=== PATIENT | female | born 1950 | race Caucasian/White ===

== ENCOUNTER → 2017-03-10 | Outpatient (CLI) | payer MEDICARE, OTHER ==
--- NOTE | 2017-03-10 10:25 | US ---
EXAMINATION TYPE: US venous doppler duplex LE DATE OF EXAM: 03/10/2017 9:49 AM COMPARISON: Right lower extremity venous ultrasound October 27, 2009 CLINICAL HISTORY: Edema R60.9. Leg swelling while traveling, no h/o dvt SIDE PERFORMED: Bilateral TECHNIQUE: The lower extremity deep venous system is examined utilizing real time linear array sonog verena with graded compression, doppler sonography and color-flow sonography. VESSELS IMAGED: External Iliac Vein (EIV) Common Femoral Vein Deep Femoral Vein Greater Saphenous Vein * Femoral Vein Popliteal Vein Small Saphenous Vein * Proximal Calf Veins (* superficial vessels) Right Leg: Appears negative for DVT Left Leg: Appears negative for DVT Grayscale, color doppler, spectral doppler imaging performed of the deep veins of the lower extremiti es. There is normal flow, compressibility, vascular waveforms bilaterally. IMPRESSION: No ultrasound evidence for acute DVT in either lower extremity.
== END | disposition home or self-care (01) ==
LOC: RADUSWWP 09:10
PROVIDERS: ATTEND Internal Medicine
DX: R60.9 Edema, unspecified (principal)
CPT/HCPCS: 36415; 80053; 83735; 84439; 84443; 85025; 93970

== ENCOUNTER → 2017-03-10 | Outpatient (CLI) | payer MEDICARE, OTHER ==
[2017-03-10 10:28] LABS: Basophils % (A) 0 %; CH 34.1; CHCM 33.6; Eosinophils # (A) 0.2 k/uL (0-0.7); Eosinophils % (A) 3 %; HCT 39.8 % (34.0-46.0); HGB 13.2 gm/dL (11.4-16.0); Luc # (Auto) 0.08; Luc % (Auto) 1; Lymphocytes # (A) 1.4 k/uL (1.0-4.8); Lymphocytes % (A) 21 %; MCH 33.8 pg (25.0-35.0); MCHC 33.1 g/dL (31.0-37.0); Macrocytosis Slight; Monocytes # (A) 0.4 k/uL (0-1.0); Monocytes % (A) 6 %; Neutrophils # (A) 4.5 k/uL (1.3-7.7); Neutrophils % (A) 69 %; RDW 13.6 % (11.5-15.5); WBC 6.5 k/uL (3.8-10.6); WBC (Perox) 6.51
[2017-03-10 11:07] LABS: ALT 29 U/L (9-52); AST 14 U/L (14-36); Alkaline Phosphatase 99 U/L (38-126); Anion Gap 10 mmol/L; Blood Urea Nitrogen 16 mg/dL (7-17); Carbon Dioxide 26 mmol/L (22-30); Chloride 105 mmol/L (98-107); Glucose 113 mg/dL (74-99); Magnesium 2.1 mg/dL (1.6-2.3); Non-African American GFR(MDRD) >60 (>60 ml/min/1.73 sqM); Potassium 3.6 mmol/L (3.5-5.1); Sodium 141 mmol/L (137-145); Total Bilirubin 0.9 mg/dL (0.2-1.3); Total Protein 6.4 g/dL (6.3-8.2)
== END | disposition home or self-care (01) ==
LOC: LABWHC1 09:59
PROVIDERS: ATTEND Internal Medicine
DX: I10 Essential (primary) hypertension (principal)
CPT/HCPCS: 36415; 80053; 83735; 84439; 84443; 85025

== ENCOUNTER → 2017-04-06 | Outpatient (CLI) | payer MEDICARE, OTHER ==
[2017-04-06 13:34] LABS: Blood Urea Nitrogen 14 mg/dL (7-17); Non-African American GFR(MDRD) >60 (>60 ml/min/1.73 sqM)
--- NOTE | 2017-04-06 15:14 | CT ---
EXAMINATION TYPE: CT abdomen pelvis w con DATE OF EXAM: 04/06/2017 COMPARISON: 01/21/2016 INDICATION: Abdominal pain DLP: 1931.20 mGycm, Automated exposure control for dose reduction was used. CONTRAST: 100 ml mL of Omnipaque 300. Study performed with Oral Contrast TECHNIQUE: Axial images were obtained from above the diaphragm to the pubic rami in the axial plane a t 5 mm thick sections. Reconstructed images are reviewed on the computer in the coronal plane. FINDINGS: Limited CT sections are obtained the lung bases. The lung bases are clear. Some coronary artery finn cification is noted. CT ABDOMEN: Liver: Normal Spleen: Normal Pancreas: Fatty infiltrated Adrenal glands: Right adrenal gland is thickened at 1.5 cm and appears stable from prior. Left adrena l gland is normal. Gallbladder: Normal Kidneys: No masses are evident. There is a peripelvic cyst present on the right. Delayed images demon strate normal renal pelvis and ureter. No hydronephrosis is present. No cysts are present. Delayed i mages were obtained through the kidneys, which remain unremarkable. Aorta: Vascular calcification is within the aorta. Inferior vena cava: Normal. CT PELVIS: Loops of bowel within the abdomen and pelvis are normal. There are loops of bowel which are incom pletely distended or lack oral contrast limiting their evaluation. Appendix: Not identified Urinary bladder: Normal. Genitourinary structures: Uterus and ovaries are not identified. Osseous structures: No suspicious lytic or sclerotic lesions. Facet degenerative change and hypertrop hy is present. IMPRESSIONS: 1. Right renal peripelvic cyst. No hydronephrosis is present. 2. No acute process CT abdomen pelvis. 3. No significant interval change
== END | disposition home or self-care (01) ==
LOC: RADCTMAIN 12:56
PROVIDERS: ATTEND Internal Medicine
DX: N28.1 Cyst of kidney, acquired (principal); Z01.812 Encounter for preprocedural laboratory examination
CPT/HCPCS: 82565; 84520; 74177; 36415; Q9967

== ENCOUNTER → 2017-05-31 | Outpatient (CLI) | payer MEDICARE, OTHER ==
--- NOTE | 2017-05-31 10:22 | MM ---
Reason for exam: additional evaluation requested from prior study. Last mammogram was performed 1 year ago. History: Patient is postmenopausal and has history of breast cancer at age 64. Malignant MG pre op needle loc LT of the left breast, November 03, 2014. Malignant US biopsy breast VAD LT of the left breast, October 24, 2014. Took estrogen for 22 years beginning at age 33. Took other hormone for 7 years beginning at age 65. Physical Findings: Nurse Summary: A 0.5-1cm nodule in the right breast at 12 o'clock (nurse kp). MG 3D Diag Mammo W/Cad PARISA Bilateral CC and MLO view(s) were taken. Prior study comparison: May 30, 2016, bilateral MG 3d diag mammo w/cad PARISA. August 26, 2015, left breast MG 3d diag mammo w/cad LT. There are scattered fibroglandular densities. Stable benign calcifications. Stable post operative changes in the left breast. These results were verbally communicated with the patient and result sheet given to the patient on 05/31/17. ASSESSMENT: Incomplete: need additional imaging evaluation, BI-RAD 0 RECOMMENDATION: Ultrasound of the right breast. Manage patient on a clinical basis.
--- NOTE | 2017-05-31 10:28 | USB ---
Reason for exam: additional evaluation requested from prior study. History: Patient is postmenopausal and has history of breast cancer at age 64. Malignant MG pre op needle loc LT of the left breast, November 03, 2014. Malignant US biopsy breast VAD LT of the left breast, October 24, 2014. Took estrogen for 22 years beginning at age 33. Took other hormone for 7 years beginning at age 65. US Breast Limited RT Right breast ultrasound indicates a 1.8 x 1.9 x 0.7cm hyperechoic lesion at 12 o 'clock. These results were verbally communicated with the patient and result sheet given to the patient on 05/31/17. ASSESSMENT: Benign, BI-RAD 2 RECOMMENDATION: Follow-up diagnostic mammogram of both breasts in 1 year. Manage patient on a clinical basis.
== END | disposition home or self-care (01) ==
LOC: RADMAMWWP 08:50
PROVIDERS: ATTEND Radiology Diagnostic Radiology
DX: C50.912 Malignant neoplasm of unspecified site of left female breast (principal); H53.462 Homonymous bilateral field defects, left side
CPT/HCPCS: 76642; G0204; G0279

== ENCOUNTER → 2017-12-15 | Outpatient (CLI) | payer MEDICARE, OTHER ==
[2017-12-15 17:37] LABS: Blood Urea Nitrogen 23 mg/dL (7-17)
--- NOTE | 2017-12-15 18:24 | CT ---
EXAMINATION TYPE: CT chest w con DATE OF EXAM: 12/15/2017 COMPARISON: 08/04/2014 HISTORY: Right upper back pain with SOB. CT DLP: 501.3 mGycm Automated exposure control for dose reduction was used. CONTRAST: CT scan of the chest is performed with IV Contrast, patient injected with 100 mL of Isovue 300. FINDINGS: The lungs are clear of infiltrate. There is no evidence of a pulmonary mass. There is no pleural effu deanna. There is no adrenal mass. Heart size is normal. There is no pericardial effusion. There is no mediastinal adenopathy. There are no hilar masses. The bony thorax appears intact. IMPRESSION: Negative CT scan of the chest. No adverse change compared to old exam.
== END | disposition home or self-care (01) ==
LOC: RADCTMAIN 17:04
PROVIDERS: ATTEND Internal Medicine
DX: R09.1 Pleurisy (principal)
CPT/HCPCS: 82565; 84520; 71260; 36415; Q9967

== ENCOUNTER 2017-12-22 19:00 | Observation (INO) | payer MEDICARE, OTHER ==
[2017-12-22] MEDS ORDERED: SODIUM CHLORIDE 0.9% 1,000 ML IV STA (19:30)
--- NOTE | 2017-12-22 19:43 | ED ---
General Adult HPI - General Chief complaint: Chest Pain Stated complaint: Chest pain Time Seen by Provider: 12/22/17 19:08 Source: patient, family, EMS, RN notes reviewed, old records reviewed Mode of arrival: EMS Limitations: no limitations - History of Present Illness Initial comments: Chief complaint and history of present illness this is a 67-year-old female here with a complaint of having had pain to her chest. She reports it started like a burn to the back of her neck that went down the left anterior chest and down both arms. It lasted 2 minutes each time. It occurred 4 times. This is associated with dizziness and diaphoresis. - Related Data Home Medications Medication Instructions Recorded Confirmed Albuterol Inhaler [Ventolin 2 puff INHALATION Q4HR PRN 01/23/14 11/03/14 Inhaler] Atorvastatin Calcium [Lipitor] 40 mg PO HS 01/23/14 11/03/14 Budesonide/Formoterol Fumarate 2 puff INHALATION BID PRN 01/23/14 11/03/14 [Symbicort 160-4.5 Mcg Inhaler] Diphenoxylate HCl/Atropine 1 tab PO TID PRN 01/23/14 11/03/14 [Lomotil] FLUoxetine HCL [PROzac] 60 mg PO DAILY 01/23/14 10/31/14 Irbesartan/Hydrochlorothiazide 1 each PO DAILY 01/23/14 11/03/14 [Avalide 150-12.5 mg Tablet] Omeprazole [PriLOSEC] 20 mg PO BID PRN 01/23/14 11/03/14 Propranolol HCl [Inderal] 60 mg PO DAILY 01/23/14 10/31/14 QUEtiapine [SEROquel] 25 mg PO HS 01/23/14 11/03/14 clonazePAM [KlonoPIN] 1 mg PO QID PRN 01/23/14 11/03/14 Hydrocodone/Acetaminophen 1 each PO QID PRN 04/09/14 11/03/14 [Hydrocodone/Acetaminophen 5-325] Multivitamins, Thera [Multivitamin] 1 each PO DAILY 10/31/14 10/31/14 Vitamin B-12(Injection) 1 applicate INJ QMONTH 10/31/14 11/03/14 Vitamin D(Dose Unknown) 1 tab PO WEEKLY 10/31/14 11/03/14 Previous Rx's Medication Instructions Recorded Hydrocodone/Acetaminophen [[place] 1 each PO Q4HR PRN #30 tab 11/03/14 5-325] Allergies Allergy/AdvReac Type Severity Reaction Status Date / Time acetaminophen [From Lortab] Allergy Hallucinati Verified 10/31/14 11:24 ons erythromycin base Allergy Rash/Hives Verified 10/31/14 11:24 [Erythromycin Base] hydrocodone bitartrate Allergy Hallucinati Verified 10/31/14 11:24 [From Lortab] ons NSAIDS (Non-Steroidal Allergy Nausea & Verified 10/31/14 11:24 Anti-Inflamma Vomiting procaine HCl [From Novocain] Allergy pt states Verified 10/31/14 11:24 " i got numb from the waist down and passed out" Review of Systems ROS Statement: Those systems with pertinent positive or pertinent negative responses have been documented in the HPI. Review of systems currently no headache or visual acuity changes no stiff neck or neck pain no chest pain or shortness of breath no complaints of any nausea vomiting or diarrhea. No GI or complaints. All systems are reviewed. Past medical problems significant for A. fib at one time used to be on Coumadin but is no longer on Coumadin. Her EKG shows normal sinus rhythm. The patient had breast cancer 3 years ago had surgery and radiation. Patient was told that she has early COPD. She quit smoking 5 years ago she had been smoking over 53 years. The patient's surgeries also include skin cancer on her right cheek, bilateral knees replaced. Total hysterectomy and hiatal hernia wrap. her family. Patient has ALLERGIES to Novocain but she states she can't take lidocaine. Also Lortab erythromycin which causes upset stomach. Patient denies alcohol use. ROS Other: All systems not noted in ROS Statement are negative. Past Medical History Past Medical History: Atrial Fibrillation, Cancer, COPD, GERD/Reflux, Hyperlipidemia, Hypertension, Osteoarthritis (OA), Pneumonia, Skin Disorder Additional Past Medical History / Comment(s): skin cancer, migraines, IBS, diverticulitis, hair falling out since Jul 2014 from coloring hair, cyst on rt kidney, skin and breast cancer, skin "sun damage", "back problems" History of Any Multi-Drug Resistant Organisms: None Reported Past Surgical History: Appendectomy, Breast Surgery, Heart Catheterization, Hysterectomy, Joint Replacement, Orthopedic Surgery, Tonsillectomy Additional Past Surgical History / Comment(s): cataracts, pain clinic procedures , "esophageal wap", left breast biopsy, margarita knee replacements Past Anesthesia/Blood Transfusion Reactions: Previous Problems w/ Anesthesia Additional Past Anesthesia/Blood Transfusion Reaction / Comment(s): hallucinations. pt told drop in BP during surgery caused from taking her avalide am of procedure-told she she not take when getting anesthesia Past Psychological History: Anxiety, Depression Smoking Status: Former smoker Past Alcohol Use History: None Reported Past Drug Use History: None Reported - Past Family History Mother Family Medical History: Deep Vein Thrombosis (DVT) General Exam - General Exam Comments Initial Comments: General: The patient is awake and alert, in no distress, and does not appear acutely ill. Here because she had 4 episodes, each lasting 2 minutes of chest pain and diaphoresis. Vital signs show temperature 98.1 pulse 55 respiratory rate 18 pulse ox 97% room air blood pressure 117/69 Eye: Pupils are equal, round and reactive to light, extra-ocular movements are intact ; there is normal conjunctiva bilaterally. No signs of icterus. Ears, nose, mouth and throat: There are moist mucous membranes and no oral lesions. Poor dentition. Neck: The neck is supple, no anterior cervical lymphadenopathy, thyroid not enlarged. No neck pain with flexion and extension. Cardiovascular: There is a regular rate and rhythm. No murmur, rub or gallop is appreciated. No pain between the shoulder blades. Respiratory: Lungs are clear to auscultation, respirations are non-labored, breath sounds are equal. No wheezes, stridor, rales, or rhonchi. Gastrointestinal: Soft, non-distended, non-tender abdomen without masses or organomegaly noted. There is no rebound or guarding present. No CVA tenderness. Bowel sounds are unremarkable. Back: There is no tenderness to palpation in the midline. There is no obvious deformity. No rashes noted. Musculoskeletal: Normal ROM, no tenderness, There is no pedal edema. There is no calf tenderness or swelling. Sensation intact. Pulses equal bilaterally 2+. Neurological: CN II-XII intact, There are no obvious motor or sensory deficits. Coordination appears grossly intact. Speech is normal. No focal or lateralizing findings Skin: Skin is warm and dry and no rashes or lesions are noted. Psychiatric: Cooperative, appropriate mood & affect, history of depression. Denies being depressed at this time. Limitations: no limitations Course Vital Signs 12/22/17 19:10 Temperature 98.1 F Pulse Rate 55 L Respiratory 18 Rate Blood Pressure 117/69 O2 Sat by Pulse 97 Oximetry EKG Findings - EKG Comments: EKG Findings:: EKG was done and reviewed at 1906 showing sinus bradycardia with left hypertrophy no acute ST elevation no ectopy no ischemic changes. Rate 55. 140 QRS 74 QT [address] Dawn Medical Decision Making - Medical Decision Making Medical decision making; patient's here because she had 4 episodes lasted 2 minutes each of pain that started in the back of her neck described as a hot sensation that then went down the left anterior chest wall and down both arms. She was diaphoretic and subsided. Patient denies any pain between his scapula. Patient had a CT of the chest with contrast just one week ago on , at that time. History ; right upper back pain with shortness of breath. The findings at that time per radiologist ;the lungs are clear of infiltrate. There is no evidence of a pulmonary mass. There is no pleural effusion. There is no adrenal mass. Heart size is normal. There is no pericardial effusion. There is no mediastinal lymphadenopathy, there are no hilar masses. Bony thorax appears intact. Impression; negative CT scan of the chest. No adverse change compared to old exam. As read by Dr. Wyatt Labs show white count of 11 hemoglobin 12.7 with hematocrit 38. INR 1.0. Potassium 4.0 and a BUN 19 creatinine 0.6 with a GFR greater than 90. Glucose 90. Troponin less than 0.012. BNP only 181. The case discussed with Dr. Jane, on-call for Dr. Arroyo. Patient be admitted to observation under her service. At this time she is not requesting heparin. - Lab Data Result diagrams: 12/22/17 19:44 12/22/17 19:44 Lab Results 12/22/17 12/22/17 12/22/17 Range/Units 19:44 19:44 19:44 WBC 11.2 H (3.8-10.6) k/uL RBC 3.81 (3.80-5.40) m/uL Hgb 12.7 (11.4-16.0) gm/dL Hct 38.0 (34.0-46.0) % MCV 99.7 (80.0-100.0) fL MCH 33.3 (25.0-35.0) pg MCHC 33.4 (31.0-37.0) g/dL RDW 13.5 (11.5-15.5) % Plt Count 215 (150-450) k/uL Neutrophils % 81 % Lymphocytes % 11 % Monocytes % 4 % Eosinophils % 2 % Basophils % 0 % Neutrophils # 9.1 H (1.3-7.7) k/uL Lymphocytes # 1.2 (1.0-4.8) k/uL Monocytes # 0.5 (0-1.0) k/uL Eosinophils # 0.3 (0-0.7) k/uL Basophils # 0.0 (0-0.2) k/uL PT (9.0-12.0) sec INR (<1.2) APTT (22.0-30.0) sec D-Dimer (<0.60) mg/L FEU Sodium 140 (137-145) mmol/L Potassium 4.0 (3.5-5.1) mmol/L Chloride 103 (98-107) mmol/L Carbon Dioxide 27 (22-30) mmol/L Anion Gap 10 mmol/L BUN 19 H (7-17) mg/dL Creatinine 0.60 (0.52-1.04) mg/dL Est GFR (CKD-EPI)AfAm >90 (>60 ml/min/1.73 sqM) Est GFR (CKD-EPI)NonAf >90 (>60 ml/min/1.73 sqM) Glucose 90 (74-99) mg/dL Calcium 10.1 (8.4-10.2) mg/dL Magnesium 2.0 (1.6-2.3) mg/dL Total Bilirubin 1.1 (0.2-1.3) mg/dL AST 17 (14-36) U/L ALT 28 (9-52) U/L Alkaline Phosphatase 96 (38-126) U/L Total Creatine Kinase 52 (30-135) U/L CK-MB (CK-2) 0.9 (0.0-2.4) ng/mL CK-MB (CK-2) Rel Index 1.7 Troponin I <0.012 (0.000-0.034) ng/mL NT-Pro-B Natriuret Pep pg/mL Total Protein 6.5 (6.3-8.2) g/dL Albumin 3.7 (3.5-5.0) g/dL 12/22/17 12/22/17 Range/Units 19:44 19:44 WBC (3.8-10.6) k/uL RBC (3.80-5.40) m/uL Hgb (11.4-16.0) gm/dL Hct (34.0-46.0) % MCV (80.0-100.0) fL MCH (25.0-35.0) pg MCHC (31.0-37.0) g/dL RDW (11.5-15.5) % Plt Count (150-450) k/uL Neutrophils % % Lymphocytes % % Monocytes % % Eosinophils % % Basophils % % Neutrophils # (1.3-7.7) k/uL Lymphocytes # (1.0-4.8) k/uL Monocytes # (0-1.0) k/uL Eosinophils # (0-0.7) k/uL Basophils # (0-0.2) k/uL PT 9.6 (9.0-12.0) sec INR 1.0 (<1.2) APTT 22.4 (22.0-30.0) sec D-Dimer 0.54 (<0.60) mg/L FEU Sodium (137-145) mmol/L Potassium (3.5-5.1) mmol/L Chloride (98-107) mmol/L Carbon Dioxide (22-30) mmol/L Anion Gap mmol/L BUN (7-17) mg/dL Creatinine (0.52-1.04) mg/dL Est GFR (CKD-EPI)AfAm (>60 ml/min/1.73 sqM) Est GFR (CKD-EPI)NonAf (>60 ml/min/1.73 sqM) Glucose (74-99) mg/dL Calcium (8.4-10.2) mg/dL Magnesium (1.6-2.3) mg/dL Total Bilirubin (0.2-1.3) mg/dL AST (14-36) U/L ALT (9-52) U/L Alkaline Phosphatase (38-126) U/L Total Creatine Kinase (30-135) U/L CK-MB (CK-2) (0.0-2.4) ng/mL CK-MB (CK-2) Rel Index Troponin I (0.000-0.034) ng/mL NT-Pro-B Natriuret Pep 181 pg/mL Total Protein (6.3-8.2) g/dL Albumin (3.5-5.0) g/dL Disposition Clinical Impression: Atypical chest pain Disposition: ADMITTED IP TO THIS HOSP Condition: Fair Referrals: Sherice Arroyo MD [Primary Care Provider] - 1-2 days
[2017-12-22 19:55] LABS: Basophils % (A) 0 %; Eosinophils # (A) 0.3 k/uL (0-0.7); Eosinophils % (A) 2 %; HGB 12.7 gm/dL (11.4-16.0); Lymphocytes # (A) 1.2 k/uL (1.0-4.8); Lymphocytes % (A) 11 %; MCH 33.3 pg (25.0-35.0); MCHC 33.4 g/dL (31.0-37.0); MCV 99.7 fL (80.0-100.0); Mean Platelet Volume 7.9; Monocytes # (A) 0.5 k/uL (0-1.0); Monocytes % (A) 4 %; Neutrophils # (A) 9.1 k/uL (1.3-7.7); Neutrophils % (A) 81 %; Platelet Count 215 k/uL (150-450); RBC 3.81 m/uL (3.80-5.40); RDW 13.5 % (11.5-15.5); WBC 11.2 k/uL (3.8-10.6)
--- NOTE | 2017-12-22 20:04 | XR ---
EXAMINATION: XR chest 2V DATE AND TIME: 12/22/2017 7:56 PM ORDERING PROVIDER: Gerson Dawn MD CLINICAL INDICATION: Chest Pain TECHNIQUE: PA and lateral COMPARISON: 05/10/2013 DESCRIPTION: The lungs are clear. The pleural spaces are negative. The cardiac silhouette is not enlarged. The mediastinal and pleural silhouettes are unremarkable. The skeletal structures are intact without focal findings. The soft tissues are unremarkable. IMPRESSION: NO ACUTE PROCESS.
[2017-12-22 20:08] LABS: ALT 28 U/L (9-52); AST 17 U/L (14-36); Albumin 3.7 g/dL (3.5-5.0); Alkaline Phosphatase 96 U/L (38-126); Anion Gap 10 mmol/L; Blood Urea Nitrogen 19 mg/dL (7-17); Calcium 10.1 mg/dL (8.4-10.2); Carbon Dioxide 27 mmol/L (22-30); Chloride 103 mmol/L (98-107); Glucose 90 mg/dL (74-99); Sodium 140 mmol/L (137-145); Total Bilirubin 1.1 mg/dL (0.2-1.3); Total Protein 6.5 g/dL (6.3-8.2)
[2017-12-22 20:09] LABS: Creatine Kinase 52 U/L (30-135)
[2017-12-22 20:22] LABS: Creatine Kinase MB 0.9 ng/mL (0.0-2.4); D-Dimer 0.54 mg/L FEU (<0.60); Partial Thromboplastin Time 22.4 sec (22.0-30.0); Prothrombin Time 9.6 sec (9.0-12.0); Troponin I <0.012 ng/mL (0.000-0.034)
[2017-12-22] MEDS ORDERED: NALOXONE 0.4 MG/ML 1 ML VIAL IV PRN (20:44)
[2017-12-22] MEDS: SODIUM CHLORIDE 0.9% 1,000 ML IV SCH (20:56)
[2017-12-22] MEDS: FAMOTIDINE 20 MG TAB PO SCH (21:19)
[2017-12-22] MEDS ORDERED: DIPHENOX-ATROP 2.5-0.025 MG 1 EACH TAB PO PRN (22:45)
[2017-12-22] MEDS ORDERED: QUEtiapine 25 MG TAB PO SCH (22:45)
[2017-12-22] MEDS ORDERED: ATORVASTATIN 40 MG TAB PO SCH (22:45)
[2017-12-22] MEDS ORDERED: ALBUTEROL NEBULIZED 2.5 MG/3 ML INHALATION PRN (22:45)
[2017-12-22] MEDS ORDERED: clonazePAM 1 MG TAB PO SCH (22:45)
[2017-12-22] MEDS ORDERED: HYDROcodone/APAP 5-325MG 1 EACH TAB PO PRN (22:45)
[2017-12-22] MEDS: IPRATROPIUM 0.5 MG/2.5 ML NEBU INHALATION SCH (23:43)
[2017-12-23 01:52] LABS: Creatine Kinase 48 U/L (30-135)
[2017-12-23 02:05] LABS: Troponin I <0.012 ng/mL (0.000-0.034)
[2017-12-23] MEDS: IPRATROPIUM 0.5 MG/2.5 ML NEBU INHALATION SCH ×3 (07:25→15:17)
[2017-12-23 08:17] LABS: Creatine Kinase 42 U/L (30-135)
[2017-12-23 08:30] LABS: Creatine Kinase MB 0.8 ng/mL (0.0-2.4); Troponin I <0.012 ng/mL (0.000-0.034)
[2017-12-23] MEDS ORDERED: ASCORBIC ACID 500 MG TAB PO SCH (09:00)
[2017-12-23] MEDS ORDERED: HYDROCHLOROTHIAZIDE 12.5 MG CAP PO SCH (09:00)
[2017-12-23] MEDS ORDERED: LOSARTAN 50 MG TAB PO SCH (09:00)
[2017-12-23] MEDS ORDERED: PROPRANOLOL LA 60 MG CAP.SA.24H PO SCH (09:00)
[2017-12-23] MEDS ORDERED: MULTIVITAMINS, THERA 1 EACH TAB PO SCH (09:00)
[2017-12-23] MEDS: clonazePAM 1 MG TAB PO SCH ×2 (09:09→15:02)
[2017-12-23] MEDS: FAMOTIDINE 20 MG TAB PO SCH (09:09)
[2017-12-23] MEDS ORDERED: FLUoxetine HCL 20 MG CAP PO SCH (10:15)
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
--- NOTE | 2017-12-23 10:31 | P.CRDCN ---
History of Present Illness Consult date: 12/23/17 Chief complaint: Chest pain History of present illness: This is a pleasant 67-year-old female patient who does not follow with any elevator erector with a past medical history significant for hypertension, obesity, and paroxysmal atrial fibrillation, presented to the hospital complaining of chest discomfort. She was in her usual state of health where she was sitting at home when suddenly developed discomfort in the mid of the chest as a burning sensation and radiated to both arms. She felt sweaty with the discomfort and it lasted only about 5 minutes then it was resolved and came back again. So obviously she developed multiple episodes of chest discomfort H1 off about 5 minutes. No shortness of breath. No dizziness or lightheadedness and no syncope. No history of coronary artery disease or congestive heart failure but she stated that she does have paroxysmal atrial fibrillation but for some reason she is not on any oral anticoagulation. During this admission, the patient continues to be pain-free. The EKG showed sinus rhythm without any ischemic changes. 3 sets of cardiac enzymes came in to be unremarkable. I do recommend proceeding with a stress test to rule out any severe underlying CAD. I am getting the patient up and around and if she continues to be asymptomatic she might be able to be discharged home and I'll follow-up with her in the office as an outpatient. Past Medical History Past Medical History: Atrial Fibrillation, Cancer, COPD, GERD/Reflux, Hyperlipidemia, Hypertension, Osteoarthritis (OA), Pneumonia, Skin Disorder Additional Past Medical History / Comment(s): skin cancer, migraines, IBS, diverticulitis, hair falling out since Jul 2014 from coloring hair, cyst on rt kidney, skin and breast cancer, skin "sun damage", "back problems" History of Any Multi-Drug Resistant Organisms: None Reported Past Surgical History: Appendectomy, Breast Surgery, Heart Catheterization, Hysterectomy, Joint Replacement, Orthopedic Surgery, Tonsillectomy Additional Past Surgical History / Comment(s): cataracts, pain clinic procedures , "esophageal wrap", left breast biopsy, margarita knee replacements Past Anesthesia/Blood Transfusion Reactions: Previous Problems w/ Anesthesia Additional Past Anesthesia/Blood Transfusion Reaction / Comment(s): hallucinations. pt told drop in BP during surgery caused from taking her avalide am of procedure-told she she not take when getting anesthesia Past Psychological History: Anxiety, Depression Smoking Status: Former smoker Past Alcohol Use History: None Reported Past Drug Use History: None Reported - Past Family History Mother Family Medical History: Deep Vein Thrombosis (DVT) Medications and Allergies Home Medications Medication Instructions Recorded Confirmed Type Albuterol Inhaler [Ventolin 2 puff INHALATION RT-QID PRN 01/23/14 12/22/17 History Inhaler] Atorvastatin Calcium [Lipitor] 40 mg PO HS 01/23/14 12/22/17 History Diphenoxylate HCl/Atropine 1 tab PO TID PRN 01/23/14 12/22/17 History [Lomotil] FLUoxetine HCL [PROzac] 60 mg PO DAILY 01/23/14 12/22/17 History Irbesartan/Hydrochlorothiazide 1 tab PO DAILY 01/23/14 12/22/17 History [Avalide 150-12.5 mg Tablet] QUEtiapine [SEROquel] 25 mg PO HS 01/23/14 12/22/17 History clonazePAM [KlonoPIN] 1 mg PO BID@0900,1500 01/23/14 12/22/17 History Multivitamins, Thera [Multivitamin] 1 tab PO DAILY 10/31/14 12/22/17 History Vitamin D(Dose Unknown) 1 tab PO WESA 10/31/14 12/22/17 History Ascorbic Acid [Vitamin C] 1,000 mg PO DAILY 12/22/17 12/22/17 History Hydrocodone/Acetaminophen [Vicodin 1 tab PO BID PRN 12/22/17 12/22/17 History 5-300 mg Tablet] Propranolol HCl [Propranolol HCl 60 mg PO DAILY 12/22/17 12/22/17 History ER] Tiotropium [place] [Spiriva 1 puff INHALATION RT-HS 12/22/17 12/22/17 History Respimat] clonazePAM [KlonoPIN] 2 mg PO HS 12/22/17 12/22/17 History Allergies Allergy/AdvReac Type Severity Reaction Status Date / Time acetaminophen [From Lortab] Allergy Hallucinati Verified 12/22/17 21:47 ons erythromycin base Allergy Rash/Hives Verified 12/22/17 21:47 [Erythromycin Base] hydrocodone bitartrate Allergy Hallucinati Verified 12/22/17 21:47 [From Lortab] ons NSAIDS (Non-Steroidal Allergy Nausea & Verified 12/22/17 21:47 Anti-Inflamma Vomiting procaine HCl [From Novocain] Allergy pt states Verified 12/22/17 21:47 " i got numb from the waist down and passed out" Physical Exam Vitals: Vital Signs Temp Pulse Pulse Pulse Resp BP BP 12/23/17 08:00 97.5 F L 65 16 132/81 12/23/17 07:39 70 12/23/17 07:28 70 12/23/17 04:00 98.1 F 71 18 112/58 12/22/17 23:58 98.5 F 65 16 135/60 12/22/17 22:28 16 12/22/17 22:09 98.5 F 62 16 125/58 12/22/17 21:13 98.0 F 55 L 16 133/70 12/22/17 19:10 98.1 F 55 L 18 117/69 Pulse Ox 12/23/17 08:00 94 L 12/23/17 07:39 12/23/17 07:28 12/23/17 04:00 93 L 12/22/17 23:58 95 12/22/17 22:28 12/22/17 22:09 95 12/22/17 21:13 96 12/22/17 19:10 97 Intake and Output 12/22/17 12/23/17 12/23/17 22:59 06:59 14:59 Intake Total 350 Balance 350 Intake: IV 350 Sodium Chloride 0.9% 1, 350 000 ml @ 70 mls/hr IV . [id number] [facility] Rx#:[id number] Other: Voiding Method Toilet Toilet # Voids 4 Weight 111.584 kg - Constitutional General appearance: no acute distress - Respiratory Respiratory: bilateral: CTA - Cardiovascular Rhythm: regular Heart sounds: normal: S1, S2 Results 12/22/17 19:44 12/22/17 19:44 Cardiac Enzymes 12/22/17 12/22/17 12/23/17 Range/Units 19:44 19:44 01:13 AST 17 (14-36) U/L CK-MB (CK-2) 0.9 1.0 (0.0-2.4) ng/mL Troponin I <0.012 <0.012 (0.000-0.034) ng/mL 12/23/17 Range/Units 07:25 AST (14-36) U/L CK-MB (CK-2) 0.8 (0.0-2.4) ng/mL Troponin I <0.012 (0.000-0.034) ng/mL Coagulation 12/22/17 Range/Units 19:44 PT 9.6 (9.0-12.0) sec APTT 22.4 (22.0-30.0) sec CBC 12/22/17 Range/Units 19:44 WBC 11.2 H (3.8-10.6) k/uL RBC 3.81 (3.80-5.40) m/uL Hgb 12.7 (11.4-16.0) gm/dL Hct 38.0 (34.0-46.0) % Plt Count 215 (150-450) k/uL Comprehensive Metabolic Panel 12/22/17 Range/Units 19:44 Sodium 140 (137-145) mmol/L Potassium 4.0 (3.5-5.1) mmol/L Chloride 103 (98-107) mmol/L Carbon Dioxide 27 (22-30) mmol/L BUN 19 H (7-17) mg/dL Creatinine 0.60 (0.52-1.04) mg/dL Glucose 90 (74-99) mg/dL Calcium 10.1 (8.4-10.2) mg/dL AST 17 (14-36) U/L ALT 28 (9-52) U/L Alkaline Phosphatase 96 (38-126) U/L Total Protein 6.5 (6.3-8.2) g/dL Albumin 3.7 (3.5-5.0) g/dL Current Medications Generic Name Dose Route Start Last Admin Trade Name Freq PRN Reason Stop Dose Admin Hydrocodone Bitart/Acetaminophen 1 each 12/22/17 22:45 Stanton 5-325 PO BID PRN Pain Albuterol Sulfate 2.5 mg 12/22/17 22:45 Ventolin Nebulized INHALATION RT-QID PRN Shortness Of Breath Ascorbic Acid 1,000 mg 12/23/17 09:00 12/23/17 09:09 Vitamin C PO 1,000 mg DAILY SHAHIDA Administration Atorvastatin Calcium 40 mg 12/22/17 22:45 12/23/17 00:03 Lipitor PO 40 mg HS SHAHIDA Administration Clonazepam 1 mg 12/23/17 09:00 12/23/17 09:09 Klonopin PO 1 mg BID@0900,1500 SHAHIDA Administration Clonazepam 1 mg 12/22/17 22:45 12/23/17 00:03 Klonopin PO 1 mg HS SHAHIDA Administration Diphenoxylate HCl/Atropine 1 each 12/22/17 22:45 Lomotil PO TID PRN Diarrhea Famotidine 20 mg 12/22/17 21:00 12/23/17 09:09 Pepcid PO 20 mg BID SHAHIDA Administration Fluoxetine HCl 60 mg 12/23/17 10:15 Prozac PO DAILY SHAHIDA Hydrochlorothiazide 12.5 mg 12/23/17 09:00 Hydrodiuril PO DAILY SHAHIDA Sodium Chloride 1,000 mls @ 50 mls/hr 12/22/17 19:30 12/22/17 20:38 Saline 0.9% IV 12/23/17 15:29 50 mls/hr .Q20H STA Administration Sodium Chloride 1,000 mls @ 70 mls/hr 12/22/17 20:45 12/22/17 20:56 Saline 0.9% IV Not Given .[id number] [facility] Ipratropium [place] 0.5 mg 12/22/17 22:47 12/23/17 07:25 Atrovent Nebulized INHALATION 0.5 mg RT-QID SHAHIDA Administration Losartan Potassium 50 mg 12/23/17 09:00 Cozaar PO DAILY [facility] Multivitamins 1 each 12/23/17 09:00 12/23/17 09:09 Theragran PO 1 each DAILY SHAHIDA Administration Naloxone HCl 0.2 mg 12/22/17 20:44 Narcan IV Q2M PRN Opioid Reversal Non-Formulary Medication 1 tab 12/23/17 22:45 Vitamin D(Dose Unknown) PO WESA SHAHIDA Propranolol HCl 60 mg 12/23/17 09:00 Inderal La PO DAILY [facility] Quetiapine Fumarate 25 mg 12/22/17 22:45 12/23/17 00:03 Seroquel PO 25 mg HS SHAHIDA Administration Intake and Output 12/22/17 12/23/17 12/23/17 22:59 06:59 14:59 Intake Total 350 Balance 350 Intake: IV 350 Sodium Chloride 0.9% 1, 350 000 ml @ 70 mls/hr IV . [id number] [facility] Rx#:[id number] Other: Voiding Method Toilet Toilet # Voids 4 Weight 111.584 kg 12/22/17 19:44 12/22/17 19:44 Assessment and Plan Assessment: Assessment #1 atypical chest discomfort #2 hypertension #3 possible paroxysmal A. fib Plan #1 the patient was ruled out for acute coronary event #2 she might be able to be discharged home and I'll follow-up with her as an outpatient. Thank you for allowing us participate in her care
[2017-12-23 12:10] VITALS: BP 161/70; RESP 18; TEMP 97.9
[2017-12-23] MEDS: SODIUM CHLORIDE 0.9% 1,000 ML IV SCH (15:01)
[2017-12-23 15:33] VITALS: PULSE 72
[2017-12-23] MEDS ORDERED: VITAMIN D PO SCH (22:45)
== END 2017-12-23 15:55 | disposition home or self-care (01) ==
LOC: EC 19:00 → 3OBS 20:44
PROVIDERS: ADMIT Internal Medicine; ATTEND Internal Medicine
DX: R07.89 Other chest pain (principal); R20.0 Anesthesia of skin; F41.1 Generalized anxiety disorder; I10 Essential (primary) hypertension; I48.0 Paroxysmal atrial fibrillation; J44.9 Chronic obstructive pulmonary disease, unspecified; K58.9 Irritable bowel syndrome, unspecified; K21.9 Gastro-esophageal reflux disease without esophagitis; E78.5 Hyperlipidemia, unspecified; G89.29 Other chronic pain; M54.9 Dorsalgia, unspecified; G43.909 Migraine, unspecified, not intractable, without status migrainosus; F33.9 Major depressive disorder, recurrent, unspecified; N28.1 Cyst of kidney, acquired; K57.90 Diverticulosis of intestine, part unspecified, without perforation or abscess without bleeding; Z79.51 Long term (current) use of inhaled steroids; Z79.899 Other long term (current) drug therapy; Z88.6 Allergy status to analgesic agent; Z88.4 Allergy status to anesthetic agent; Z88.1 Allergy status to other antibiotic agents; Z88.5 Allergy status to narcotic agent; Z85.3 Personal history of malignant neoplasm of breast; Z92.3 Personal history of irradiation; Z87.891 Personal history of nicotine dependence; Z85.828 Personal history of other malignant neoplasm of skin; Z90.710 Acquired absence of both cervix and uterus; Z87.01 Personal history of pneumonia (recurrent); Z96.653 Presence of artificial knee joint, bilateral; Z82.49 Family history of ischemic heart disease and other diseases of the circulatory system
CPT/HCPCS: 99285 ×2; 36415; 94640 ×2; 93005; 85379; 83880; 80053; 82550 ×2; 82553 ×2; 83735; 84484 ×2; 85025; 85610; 85730; 71046; G0378 ×2

== ENCOUNTER 2018-04-11 06:56 | Emergency (ER) | payer MEDICARE, OTHER ==
--- NOTE | 2018-04-11 07:56 | ED ---
General Adult HPI - General Chief complaint: Recheck/Abnormal Lab/Rx Stated complaint: poss medication reaction Time Seen by Provider: 04/11/18 07:00 Source: patient, RN notes reviewed Mode of arrival: wheelchair Limitations: no limitations - History of Present Illness Initial comments: This is a 68-year-old female presents emergency department stating that she started new medication for her overactive bladder and since that she's been having a variety of weird symptoms. Patient states she has some watering of the right eye she had some abdominal tightness and complained of knee pain. Patient states when she stopped the medicine for one day the symptoms went away. Patient states she's had no chest pain or difficulty breathing or shortness of breath. Patient denies any nausea or vomiting or abdominal pain. Patient states she had some abdominal tightness but no pain. Patient denies any headache patient denies numbness or weakness. Patient denies any dizziness or lightheadedness. Patient denies any dysuria hematuria and her urinary frequency continues at the same pain as it was prior to the medicine. She denies any recent fevers - Related Data Home Medications Medication Instructions Recorded Confirmed Atorvastatin Calcium [Lipitor] 40 mg PO HS 01/23/14 04/11/18 FLUoxetine HCL [PROzac] 60 mg PO DAILY 01/23/14 04/11/18 Irbesartan/Hydrochlorothiazide 1 tab PO DAILY 01/23/14 04/11/18 [Avalide 150-12.5 mg Tablet] QUEtiapine [SEROquel] 25 mg PO HS 01/23/14 04/11/18 clonazePAM [KlonoPIN] 1 mg PO QID 01/23/14 04/11/18 Multivitamins, Thera [Multivitamin] 1 tab PO DAILY 10/31/14 04/11/18 Vitamin D(Dose Unknown) 1 tab PO DAILY 10/31/14 04/11/18 Ascorbic Acid [Vitamin C] 1,000 mg PO DAILY 12/22/17 04/11/18 Hydrocodone/Acetaminophen [Vicodin 1 tab PO BID PRN 12/22/17 04/11/18 5-300 mg Tablet] Tiotropium [place] [Spiriva 1 puff INHALATION RT-HS 12/22/17 04/11/18 Respimat] Budesonide-Formot 160-4.5 Mcg 2 puff INHALATION RT-BID 04/11/18 04/11/18 [Symbicort 160-4.5 Mcg Inhaler] Medhat/D3/Mag11/Zinc/Roll Mechanic/Leonidas/Bor 1 tab PO DAILY 04/11/18 04/11/18 [Caltrate 600+D Plus Tablet] Cyanocobalamin (Vitamin B-12) 1,000 mcg PO DAILY 04/11/18 04/11/18 [Vitamin B-12] Ibuprofen [Motrin Ib] 400 mg PO Q6H PRN 04/11/18 04/11/18 Tolterodine ER [Detrol LA] 4 mg PO DAILY 04/11/18 04/11/18 Allergies Allergy/AdvReac Type Severity Reaction Status Date / Time acetaminophen [From Lortab] Allergy Hallucinati Verified 04/11/18 08:48 ons erythromycin base Allergy Rash/Hives Verified 04/11/18 08:48 [Erythromycin Base] hydrocodone bitartrate Allergy Hallucinati Verified 04/11/18 08:48 [From Lortab] ons NSAIDS (Non-Steroidal Allergy Nausea & Verified 04/11/18 08:48 Anti-Inflamma Vomiting procaine HCl [From Novocain] Allergy pt states Verified 04/11/18 08:48 " i got numb from the waist down and passed out" adhesive AdvReac Rash/Hives Verified 04/11/18 08:48 Review of Systems ROS Statement: Those systems with pertinent positive or pertinent negative responses have been documented in the HPI. ROS Other: All systems not noted in ROS Statement are negative. Past Medical History Past Medical History: Atrial Fibrillation, Cancer, COPD, GERD/Reflux, Hyperlipidemia, Hypertension, Osteoarthritis (OA), Pneumonia, Skin Disorder Additional Past Medical History / Comment(s): Basal cell skin cancer on her face status post radiation and skin graft, left breast cancer status post lumpectomy in 2014, chronic back pain, migraines, IBS, diverticulitis, hair falling out since Jul 2014 from coloring hair, cyst on rt kidney, History of Any Multi-Drug Resistant Organisms: None Reported Past Surgical History: Appendectomy, Breast Surgery, Heart Catheterization, Hysterectomy, Joint Replacement, Orthopedic Surgery, Tonsillectomy Additional Past Surgical History / Comment(s): Cataract removal and intraocular lens implants, skin graft to her face for basal cell cancer, pain clinic procedures, "esophageal wrap", left breast biopsy and left breast lumpectomy, margarita knee replacements Past Anesthesia/Blood Transfusion Reactions: Previous Problems w/ Anesthesia Additional Past Anesthesia/Blood Transfusion Reaction / Comment(s): hallucinations. pt told drop in BP during surgery caused from taking her avalide am of procedure-told she she not take when getting anesthesia Past Psychological History: Anxiety, Depression Smoking Status: Former smoker Past Alcohol Use History: None Reported Past Drug Use History: None Reported - Past Family History Father Additional Family Medical History / Comment(s): Father at age 80 with previous history of myocardial infarction age 79 and status post AICD. Patient has 6 uncles on her father's side that had myocardial infarctions. Brother(s) Additional Family Medical History / Comment(s): Patient's brothers and sisters are healthy with no major medical problems. Daughter(s) Additional Family Medical History / Comment(s): Patient has 4 adult children living and [place] with no major medical problems. Mother Family Medical History: Deep Vein Thrombosis (DVT) Additional Family Medical History / Comment(s): Mother is alive with history of dementia. General Exam - General Exam Comments Initial Comments: GENERAL: Patient is well-developed and well-nourished. Patient is nontoxic and well- hydrated and is in mild distress. ENT: Neck is soft and supple. No significant lymphadenopathy is noted. Oropharynx is clear. Moist mucous membranes. Neck has full range of motion without eliciting any pain. EYES: The sclera were anicteric and conjunctiva were pink and moist. Extraocular movements were intact and pupils were equal round and reactive to light. Eyelids were unremarkable. PULMONARY: Unlabored respirations. Good breath sounds bilaterally. No audible rales rhonchi or wheezing was noted. CARDIOVASCULAR: There is a regular rate and rhythm without any murmurs gallops or rubs. ABDOMEN: Soft and nontender with normal bowel sounds. No palpable organomegaly was noted. There is no palpable pulsatile mass. SKIN: Skin is clear with no lesions or rashes and otherwise unremarkable. NEUROLOGIC: Patient is alert and oriented x3. Cranial nerves II through XII are grossly intact. Motor and sensory are also intact. Normal speech, volume and content. Symmetrical smile. MUSCULOSKELETAL: Patient has had bilateral knee replacements patient has some tenderness in the infrapatellar region LYMPHATICS: No significant lymphadenopathy is noted PSYCHIATRIC: Normal psychiatric evaluation. Normal interpersonal interactions appears functionally intact in deals appropriately with others. No signs of depression. No signs of anxiety. No delusions. No hallucinations. Limitations: no limitations Course Vital Signs 04/11/18 04/11/18 07:15 08:11 Temperature 98.0 F Pulse Rate 67 62 Respiratory 20 18 Rate Blood Pressure 122/57 113/67 O2 Sat by Pulse 99 97 Oximetry Medical Decision Making - Medical Decision Making EKG shows sinus bradycardic 50 bpm NH interval is 136 QRS is 70 QT interval 420 QTC is 412. Patient's EKG shows no acute changes from previous EKG. A lot of the side effects of the new medication were similar to the symptoms the patient was having so she is in agreement with stopping the medication at this point following up with a primary medical care doctor. - Lab Data Lab Results 04/11/18 Range/Units 07:56 Urine Color Yellow Urine Appearance Clear (Clear) Urine pH 5.5 (5.0-8.0) Ur Specific [place] 1.015 (1.001-1.035) Urine Protein Negative (Negative) Urine Glucose (UA) Negative (Negative) Urine Ketones Negative (Negative) Urine Blood Negative (Negative) Urine Nitrite Negative (Negative) Urine Bilirubin Negative (Negative) Urine Urobilinogen <2.0 (<2.0) mg/dL Ur Leukocyte Esterase Small H (Negative) Urine RBC <1 (0-5) /hpf Urine WBC 5 (0-5) /hpf Ur Squamous Epith Cells 2 (0-4) /hpf Urine Mucus Rare H (None) /hpf Disposition Clinical Impression: Adverse reaction to drug Disposition: HOME SELF-CARE Is patient prescribed a controlled substance at d/c from ED?: No Referrals: Sherice Arroyo MD [Primary Care Provider] - 1-2 days Time of Disposition: 09:33
[2018-04-11 08:13] VITALS: RESP 18
[2018-04-11 08:35] LABS: Appearance,Urine Clear (Clear); Bilirubin,Urine Negative (Negative); Blood,Urine Negative (Negative); Color,Urine Yellow; Glucose,Urine (UA) Negative (Negative); Ketones,Urine Negative (Negative); Leukocyte Esterase,Urine Small (Negative); Mucus,Urine Rare /hpf; Nitrite,Urine Negative (Negative); PH, Urine 5.5 (5.0-8.0); Protein,Urine Negative (Negative); RBC,Urine <1 /hpf (0-5); Specific Gravity,Urine 1.015 (1.001-1.035); Squamous Epithelial Cell,Urine 2 /hpf (0-4); Urobilinogen,Urine <2.0 mg/dL (<2.0); WBC,Urine 5 /hpf (0-5)
[2018-04-11 09:49] VITALS: BP 118/69; PULSE 64; TEMP 98
== END 2018-04-11 09:47 | disposition home or self-care (01) ==
LOC: EC 06:56
DX: H04.201 Unspecified epiphora, right side (principal); M25.569 Pain in unspecified knee; R35.0 Frequency of micturition; T50.995A Adverse effect of other drugs, medicaments and biological substances, initial encounter; I48.91 Unspecified atrial fibrillation; J44.9 Chronic obstructive pulmonary disease, unspecified; K21.9 Gastro-esophageal reflux disease without esophagitis; E78.5 Hyperlipidemia, unspecified; I10 Essential (primary) hypertension; M19.90 Unspecified osteoarthritis, unspecified site; F41.9 Anxiety disorder, unspecified; F32.9 Major depressive disorder, single episode, unspecified; Z87.891 Personal history of nicotine dependence; Z85.3 Personal history of malignant neoplasm of breast; Z85.828 Personal history of other malignant neoplasm of skin; Z96.653 Presence of artificial knee joint, bilateral; Z90.49 Acquired absence of other specified parts of digestive tract; Z90.710 Acquired absence of both cervix and uterus; Z98.890 Other specified postprocedural states; Z79.51 Long term (current) use of inhaled steroids; Z79.899 Other long term (current) drug therapy; Z88.1 Allergy status to other antibiotic agents; Z88.4 Allergy status to anesthetic agent; Z88.5 Allergy status to narcotic agent; Z88.6 Allergy status to analgesic agent; Z88.8 Allergy status to other drugs, medicaments and biological substances; Z91.048 Other nonmedicinal substance allergy status
CPT/HCPCS: 81001; 93005; 99283

== ENCOUNTER → 2018-06-01 | Outpatient (CLI) | payer MEDICARE, OTHER ==
--- NOTE | 2018-06-01 11:14 | MM ---
Reason for exam: additional evaluation requested from prior study. Last mammogram was performed 1 year ago. History: Patient is postmenopausal and has history of breast cancer at age 64. Malignant MG pre op needle loc LT of the left breast, November 03, 2014. Malignant US biopsy breast VAD LT of the left breast, October 24, 2014. Took estrogen for 22 years beginning at age 33. Took other hormone for 7 years beginning at age 65. Physical Findings: Nurse did not find any significant physical abnormalities on exam. MG 3D Diag Mammo W/Cad PARISA Bilateral CC and MLO view(s) were taken. Technologist: Marylin Coyne RT (R)(M) Prior study comparison: May 31, 2017, bilateral MG 3d diag mammo w/cad PARISA. May 30, 2016, bilateral MG 3d diag mammo w/cad PARISA. There are scattered fibroglandular densities. Asymmetric breast tissue greater in the right breast. Post surgical changes in the left breast. No significant new findings when compared with previous films. These results were verbally communicated with the patient and result sheet given to the patient on 06/01/18. ASSESSMENT: Benign, BI-RAD 2 RECOMMENDATION: Routine screening mammogram of both breasts in 1 year.
== END ==
LOC: RADMAMWWP 09:00
PROVIDERS: ATTEND Radiology Diagnostic Radiology
DX: C50.912 Malignant neoplasm of unspecified site of left female breast (principal)
CPT/HCPCS: 77066; G0279; 77062

== ENCOUNTER 2018-07-15 14:42 | Emergency (ER) | payer MEDICARE, OTHER ==
[2018-07-15 16:12] VITALS: BP 136/90; PULSE 60; RESP 18; TEMP 97.8
--- NOTE | 2018-07-15 16:52 | ED ---
General Adult HPI - General Chief complaint: Skin/Abscess/Foreign Body Stated complaint: cyst on neck Time Seen by Provider: 07/15/18 15:17 Source: patient, RN notes reviewed Mode of arrival: ambulatory Limitations: no limitations - History of Present Illness Initial comments: 68-year-old female presents to the emergency department for a chief complaint of painful cyst times one week. Patient states she has had a cyst in the back of her neck for years. She states that she has seen both primary and dermatology for this who had recommended no treatment at the time as it had not bothered her. However in the past week it has become erythematous and painful. Patient states she believes it is infected. She states she was seen in office and put on doxycycline. She states this has continued to worsen since the antibiotics. She denies fevers or chills at home. Patient has no other complaints at this time including shortness of breath, chest pain, abdominal pain, nausea or vomiting, headache, or visual changes. - Related Data Home Medications Medication Instructions Recorded Confirmed Atorvastatin Calcium [Lipitor] 40 mg PO HS 01/23/14 04/11/18 FLUoxetine HCL [PROzac] 60 mg PO DAILY 01/23/14 04/11/18 Irbesartan/Hydrochlorothiazide 1 tab PO DAILY 01/23/14 04/11/18 [Avalide 150-12.5 mg Tablet] QUEtiapine [SEROquel] 25 mg PO HS 01/23/14 04/11/18 clonazePAM [KlonoPIN] 1 mg PO QID 01/23/14 04/11/18 Multivitamins, Thera [Multivitamin] 1 tab PO DAILY 10/31/14 04/11/18 Vitamin D(Dose Unknown) 1 tab PO DAILY 10/31/14 04/11/18 Ascorbic Acid [Vitamin C] 1,000 mg PO DAILY 12/22/17 04/11/18 Hydrocodone/Acetaminophen [Vicodin 1 tab PO BID PRN 12/22/17 04/11/18 5-300 mg Tablet] Tiotropium [place] [Spiriva 1 puff INHALATION RT-HS 12/22/17 04/11/18 Respimat] Budesonide-Formot 160-4.5 Mcg 2 puff INHALATION RT-BID 04/11/18 04/11/18 [Symbicort 160-4.5 Mcg Inhaler] Medhat/D3/Mag11/Zinc/Community Center Worker/Leonidas/Bor 1 tab PO DAILY 04/11/18 04/11/18 [Caltrate 600+D Plus Tablet] Cyanocobalamin (Vitamin B-12) 1,000 mcg PO DAILY 04/11/18 04/11/18 [Vitamin B-12] Ibuprofen [Motrin Ib] 400 mg PO Q6H PRN 04/11/18 04/11/18 Tolterodine ER [Detrol LA] 4 mg PO DAILY 04/11/18 04/11/18 Allergies Allergy/AdvReac Type Severity Reaction Status Date / Time acetaminophen [From Lortab] Allergy Hallucinati Verified 07/15/18 15:09 ons erythromycin base Allergy Rash/Hives Verified 07/15/18 15:09 [Erythromycin Base] hydrocodone bitartrate Allergy Hallucinati Verified 07/15/18 15:09 [From Lortab] ons NSAIDS (Non-Steroidal Allergy Nausea & Verified 07/15/18 15:09 Anti-Inflamma Vomiting procaine HCl [From Novocain] Allergy pt states Verified 07/15/18 15:09 " i got numb from the waist down and passed out" adhesive AdvReac Rash/Hives Verified 07/15/18 15:09 Review of Systems ROS Statement: Those systems with pertinent positive or pertinent negative responses have been documented in the HPI. ROS Other: All systems not noted in ROS Statement are negative. Past Medical History Past Medical History: Atrial Fibrillation, Cancer, COPD, GERD/Reflux, Hyperlipidemia, Hypertension, Osteoarthritis (OA), Pneumonia, Skin Disorder Additional Past Medical History / Comment(s): Basal cell skin cancer on her face status post radiation and skin graft, left breast cancer status post lumpectomy in 2014, chronic back pain, migraines, IBS, diverticulitis, hair falling out since Jul 2014 from coloring hair, cyst on rt kidney, History of Any Multi-Drug Resistant Organisms: None Reported Past Surgical History: Appendectomy, Breast Surgery, Heart Catheterization, Hysterectomy, Joint Replacement, Orthopedic Surgery, Tonsillectomy Additional Past Surgical History / Comment(s): Cataract removal and intraocular lens implants, skin graft to her face for basal cell cancer, pain clinic procedures, "esophageal wrap", left breast biopsy and left breast lumpectomy, margarita knee replacements Past Anesthesia/Blood Transfusion Reactions: Previous Problems w/ Anesthesia Additional Past Anesthesia/Blood Transfusion Reaction / Comment(s): hallucinations. pt told drop in BP during surgery caused from taking her avalide am of procedure-told she she not take when getting anesthesia Past Psychological History: Anxiety, Depression Smoking Status: Former smoker Past Alcohol Use History: None Reported Past Drug Use History: None Reported - Past Family History Father Additional Family Medical History / Comment(s): Father at age 80 with previous history of myocardial infarction age 79 and status post AICD. Patient has 6 uncles on her father's side that had myocardial infarctions. Brother(s) Additional Family Medical History / Comment(s): Patient's brothers and sisters are healthy with no major medical problems. Daughter(s) Additional Family Medical History / Comment(s): Patient has 4 adult children living and [place] with no major medical problems. Mother Family Medical History: Deep Vein Thrombosis (DVT) Additional Family Medical History / Comment(s): Mother is alive with history of dementia. General Exam Limitations: no limitations General appearance: alert, in no apparent distress Head exam: Present: atraumatic, normocephalic, normal inspection Eye exam: Present: normal appearance, PERRL, EOMI. Absent: scleral icterus, conjunctival injection, periorbital swelling ENT exam: Present: normal exam, mucous membranes moist Neck exam: Present: other (Patient has a 3 cm x 2 cm abscess or cyst just inferior to the neck. No drainage opening at this point. No cellulitic infection overlying.). Absent: meningismus, lymphadenopathy Respiratory exam: Present: normal lung sounds bilaterally. Absent: respiratory distress, wheezes, rales, rhonchi, stridor Cardiovascular Exam: Present: regular rate, normal rhythm, normal heart sounds. Absent: systolic murmur, diastolic murmur, rubs, gallop, clicks Neurological exam: Present: alert, oriented X3, CN II-XII intact Psychiatric exam: Present: normal affect, normal mood Course Vital Signs 07/15/18 16:11 Temperature 97.8 F Pulse Rate 60 Respiratory 18 Rate Blood Pressure 136/90 O2 Sat by Pulse 98 Oximetry Procedures - Incision & Drainage Consent Obtained: verbal consent Site: back Size (cm): 3 I&D Cleaning Method: Chloroprep Scalpel Used: #11 I&D Drainage Obtained: Pus Patient Tolerated Procedure: well, no complications Medical Decision Making - Medical Decision Making 68-year-old female presents to the emergency determine for chief complaint of cyst times one week. Patient states this is has been there for years but just now became erythematous and painful. Vitals are stable and patient is afebrile. On exam this is about 3 x 2 cm. Incision and drainage was performed and significant purulent material was expelled. This was likely a sebaceous cyst that could become infected. Patient is already on doxycycline and will continue this. She will follow-up with her primary care provider Dr. Arroyo tomorrow. The wound was packed patient is aware that the packing was, out in [address] Thacker did see the patient and perform the I and D. Patient has no other complaints at this time including shortness of breath, chest pain, abdominal pain, nausea or vomiting, headache, or visual changes. Disposition Clinical Impression: Abscess Disposition: HOME SELF-CARE Condition: Good Instructions: Abscess (ED) Additional Instructions: Please continue to take doxycycline. Please follow up with primary care or dermatology in 1-2 days. Return to the emergency department if you have fevers or any worsening symptoms. Is patient prescribed a controlled substance at d/c from ED?: No Referrals: Sherice Arroyo MD [Primary Care Provider] - 1-2 days Time of Disposition: 16:51
== END 2018-07-15 17:10 | disposition home or self-care (01) ==
LOC: EC 14:42
DX: L02.212 Cutaneous abscess of back [any part, except buttock and flank] (principal); J44.9 Chronic obstructive pulmonary disease, unspecified; E78.5 Hyperlipidemia, unspecified; I10 Essential (primary) hypertension; M19.90 Unspecified osteoarthritis, unspecified site; F41.9 Anxiety disorder, unspecified; F32.9 Major depressive disorder, single episode, unspecified; Z85.828 Personal history of other malignant neoplasm of skin; Z85.3 Personal history of malignant neoplasm of breast; Z95.818 Presence of other cardiac implants and grafts; Z96.653 Presence of artificial knee joint, bilateral; Z87.891 Personal history of nicotine dependence; Z79.51 Long term (current) use of inhaled steroids; Z79.899 Other long term (current) drug therapy; Z88.6 Allergy status to analgesic agent; Z88.1 Allergy status to other antibiotic agents; Z88.5 Allergy status to narcotic agent; Z88.4 Allergy status to anesthetic agent; Z91.048 Other nonmedicinal substance allergy status
CPT/HCPCS: 10060; 99282

== ENCOUNTER → 2018-11-08 | Outpatient (CLI) | payer MEDICARE, OTHER ==
--- NOTE | 2018-11-08 12:17 | US ---
EXAMINATION TYPE: US abdomen complete DATE OF EXAM: 11/08/2018 COMPARISON: CT CLINICAL HISTORY: R10.13 Dyspepsia.intermittent RUQ pain; attention to gallbladder EXAM MEASUREMENTS: Liver Length: 13.1 cm Gallbladder Wall: 0.2 cm CBD: 0.3 cm Spleen: 10.0 cm Right Kidney: 10.4 x 5.1 x 5.4 cm Left Kidney: 11.0 x 5.1 x 4.6 cm Pancreas: abnormally hyperechoic, lobular borders Liver: fatty as is hyperechoic to right renal cortex Gallbladder: wnl Evidence for sonographic Taylor's sign: no CBD: wnl Spleen: couple of oval hyperechoic masses at hilum suggests splenic hemangioma with larger = 1.0 x 1 .2 x 0.9cm Right Kidney: parapelvic cystic area = 2.1 x 2.4 x 2.6cm Left Kidney: No hydronephrosis or masses seen Upper IVC: wnl Abd Aorta: size is wnl . IMPRESSION: 1. Hepatic steatosis. 2. Parapelvic right-sided renal cysts.
== END | disposition home or self-care (01) ==
LOC: RADUSWWP 09:53
PROVIDERS: ATTEND Internal Medicine
DX: K76.0 Fatty (change of) liver, not elsewhere classified (principal); N28.1 Cyst of kidney, acquired
CPT/HCPCS: 76700

== ENCOUNTER → 2018-11-27 | Outpatient (CLI) | payer MEDICARE, OTHER ==
[2018-11-13 14:44] VITALS: BMI 44.9
[2018-11-27 13:09] VITALS: BP 134/81; PULSE 72; RESP 16; TEMP 97.2
--- NOTE | 2018-11-27 13:35 | P.CONS ---
History of Present Illness - Reason for Consult Consult date: 11/27/18 - Chief Complaint Lower back and bilateral leg pain - History of Present Illness This is a 5-year-old lady with history of chronic lower back pain with radiation to both legs to the feet. She occasionally feels numbness and tingling in her legs in no specific radicular distribution. The pain gets worse by walking for long distances and improved by sitting down or lying down in bed. She denies any bowel dysfunction however she started to feel urinary incontinence at night. She denies any progressive weakness in the lower extremities. She had lumbar medial branch RFA 5 years ago with the results that did not last for long time as she states. Review of Systems Constitutional: Reports chronic pain Ears, nose, mouth and throat: Denies headache, Denies sore throat Cardiovascular: Denies chest pain, Denies shortness of breath Respiratory: Denies cough Neurological: Reports as per HPI Past Medical History Past Medical History: Atrial Fibrillation, Cancer, COPD, GERD/Reflux, Hyperlipidemia, Hypertension, Osteoarthritis (OA), Pneumonia, Skin Disorder Additional Past Medical History / Comment(s): Basal cell skin cancer on face post radiation and skin graft, left breast cancer status post lumpectomy in 2014, chronic back pain, migraines, IBS, diverticulitis, chronic diarrhea., fatty liver., cyst on rt kidney, states perineal rash from urine leakage., difficulty walking distance. History of Any Multi-Drug Resistant Organisms: None Reported Past Surgical History: Appendectomy, Breast Surgery, Heart Catheterization, Hysterectomy, Joint Replacement, Orthopedic Surgery, Tonsillectomy Additional Past Surgical History / Comment(s): Cataract with lens implant, skin graft to her face for basal cell cancer, pain clinic procedures, "esophageal wrap", left breast biopsy and left breast lumpectomy, margarita knee replacements- pain procedures Past Anesthesia/Blood Transfusion Reactions: Previous Problems w/ Anesthesia Additional Past Anesthesia/Blood Transfusion Reaction / Comm: hallucinations. pt told drop in BP during surgery caused from taking her avalide am of procedure- told she should not take when getting anesthesia Past Psychological History: Anxiety, Depression Smoking Status: Former smoker Past Alcohol Use History: None Reported Additional Past Alcohol Use History / Comment(s): QUIT SMOKING 2012, SMOKED FOR 53 YEARS 1-1 1/2 PPD. Past Drug Use History: None Reported - Past Family History Father Additional Family Medical History / Comment(s): Father at age 80 with previous history of myocardial infarction age 79 and status post AICD. Patient has 6 uncles on her father's side that had myocardial infarctions. Brother(s) Family Medical History: No Reported History Additional Family Medical History / Comment(s): . Daughter(s) Family Medical History: No Reported History Additional Family Medical History / Comment(s): . Mother Family Medical History: Dementia, Deep Vein Thrombosis (DVT) Additional Family Medical History / Comment(s): . Medications and Allergies Home Medications Medication Instructions Recorded Confirmed Type Atorvastatin Calcium [Lipitor] 40 mg PO HS 01/23/14 11/27/18 History FLUoxetine HCL [PROzac] 60 mg PO DAILY 01/23/14 11/27/18 History Irbesartan/Hydrochlorothiazide 1 tab PO DAILY 01/23/14 11/27/18 History [Avalide 150-12.5 mg Tablet] QUEtiapine [SEROquel] 25 mg PO HS 01/23/14 11/27/18 History Hydrocodone/Acetaminophen [Vicodin 1 tab PO Q8HR PRN 12/22/17 11/27/18 History 5-300 mg Tablet] Tiotropium [place] [Spiriva 2 puff INHALATION DAILY 12/22/17 11/27/18 History Respimat] Cyanocobalamin (Vitamin B-12) 1,000 mcg PO DAILY 04/11/18 11/27/18 History [Vitamin B-12] Albuterol Inhaler [Ventolin Hfa 1 - 2 puff INHALATION RT-Q6H PRN 11/13/18 11/27/18 History Inhaler] Cholecalciferol (Vitamin D3) 2,000 unit PO DAILY 11/13/18 11/27/18 History [Vitamin D3] Diphenox-Atrop 2.5-0.025 mg 1 tab PO TID PRN 11/13/18 11/27/18 History [Lomotil] Omeprazole 20 mg PO BID PRN 11/13/18 11/27/18 History Propranolol HCl [Inderal] 60 mg PO DAILY 11/13/18 11/27/18 History Solifenacin Succinate [Vesicare] 5 mg PO DAILY 11/13/18 11/27/18 History clonazePAM [KlonoPIN] 4 mg PO DIRECTED PRN 11/13/18 11/27/18 History Allergies Allergy/AdvReac Type Severity Reaction Status Date / Time erythromycin base Allergy Rash/Hives Verified 11/27/18 13:13 [Erythromycin Base] hydrocodone bitartrate Allergy Hallucinati Verified 11/27/18 13:13 [From Lortab] ons NSAIDS (Non-Steroidal Allergy Nausea & Verified 11/27/18 13:13 Anti-Inflamma Vomiting procaine HCl [From Novocain] Allergy pt states Verified 11/27/18 13:13 " i got numb from the waist down and passed out" adhesive AdvReac Rash/Hives Verified 11/27/18 13:13 Physical Exam Vitals: Vital Signs Temp Pulse Resp BP Pulse Ox 11/27/18 13:02 97.2 F L 72 16 134/81 93 L - Constitutional General appearance: morbidly obese - EENT Eyes: PERRLA - Respiratory Respiratory: bilateral: CTA - Cardiovascular Rhythm: regular - Neurologic Neuro exam of the lower extremities showed normal muscle strength bilaterally and symmetrically and normal knee reflexes however she has absent ankle reflexes. Positive tenderness around the left sacroiliac joint and positive Jacques's test on the left side Straight leg raising test negative bilaterally Neurologic: CNII-XII intact - Psychiatric Psychiatric: A&O x's 3, appropriate affect, intact judgment & insight Results Results: Lumbar spine MRI shows scoliosis, grade 2 spondylolisthesis of L4 on L5, diminished height of L4 5 disc with spinal canal stenosis at the L4 5 level. Assessment and Plan Plan: A 68-year-old lady with lumbar stenosis, lumbar spondylosis without myelopathy and lumbar spondylolisthesis with pain in her back and radiates down both legs to the feet. The patient may benefit from getting lumbar epidural steroid injection under fluoroscopic guidance at the L4 5 or L5-S1 level. The patient takes Klonopin 4 mg a day and she sparingly uses [place] from her primary care physician. The patient also may benefit from getting left sacroiliac joint steroid injection in the future. The above-mentioned procedure was explained to the patient and her questions were answered. I thank you for the referral.
== END ==
LOC: PNWHC3 12:49
PROVIDERS: ATTEND Anesthesiology
DX: M48.061 Spinal stenosis, lumbar region without neurogenic claudication (principal); M47.816 Spondylosis without myelopathy or radiculopathy, lumbar region; M43.16 Spondylolisthesis, lumbar region; M79.662 Pain in left lower leg; M79.661 Pain in right lower leg; Z88.1 Allergy status to other antibiotic agents; Z88.5 Allergy status to narcotic agent; Z88.6 Allergy status to analgesic agent; Z91.09 Other allergy status, other than to drugs and biological substances; Z79.899 Other long term (current) drug therapy
CPT/HCPCS: G0463 ×2; 99201; 99211

== ENCOUNTER 2018-12-27 07:26 | Day surgery (SDC) | payer MEDICARE, OTHER ==
[2018-12-24 11:32] VITALS: BMI 44.4
[2018-12-27 07:58] VITALS: RESP 18; TEMP 98
[2018-12-27] MEDS: LACTATED RINGERS 1,000 ML IV SCH ×3 (08:15→08:24)
[2018-12-27] MEDS ORDERED: LIDOCAINE 1% 20 ML VIAL (10MG/ML) FOR IV START INTRADERMA ONE (08:16)
--- NOTE | 2018-12-27 09:02 | P.PCN ---
Date of Procedure: 12/27/18 Procedure(s) Performed: PREOPERATIVE DIAGNOSIS: 1- Lumbar Degenerative Disc Diseases 2-Lumbar spondylosis with Facet arthropathy without myelopathy 3-lumbar spinal stenosis POSTOPERATIVE DIAGNOSIS: 1-Lumber Degenerative Disc Diseases 2-Lumbar spondylosis with Facet arthropathy without myelopathy. 3-lumbar spinal stenosis PROCEDURE 1. Lumbar epidural steroid injection under fluoroscopic guidance at the L5-S1 level. 2. Lumbar epidurogram. ANESTHESIA: Local with 1% lidocaine 3 ml and , moderate sedation with intravenous Versed 1 mg ,and fentanyle 50 Mcg EBL: Minimal PROCEDURE INDICATION: The patient with low back pain and radiculitis symptoms unresponsive to conservative treatment. Fluoroscopy was used to optimize visualization of the needle placement and to maximize safety. PROCEDURE DESCRIPTION / TECHNIQUE: The patient was seen and identified in the preoperative area. Risks, benefits, complications including but not limited to infections ,bleeding ,allergic reaction to the medications ,nerve damage and not complete pain releife , and alternatives were discussed with the patient. The patient agreed to proceed with the procedure and signed the consent. IV was started, and vital signs were stable. Patient was taken to the OR and time out was completed. The patient was placed in the prone position on procedure table and a pillow was placed under the abdomen to reduce lumbar lordosis. The lumbosacral area was prepped and draped in the usual sterile fashion.ere closely monitored during the procedure. Conscious sedation was used during the procedure to decrease patients anxiety. Vital signs was monitered during the entire procedure. Using anterior-posterior fluoroscopy, the L5-S1 interlaminar space was identified and the skin over this site was marked and then infiltrated with 1% lidocaine subcutaneously. Subsequently, a 20-gauge Tuohy epidural needle was inserted and advanced toward the epidural space using the ``Loss of resistance technique and guided by AP and lateral fluoroscopy. The correct needle position in the epidural space was verified with the injection of 2 mL of the water soluble contrast dye Isovue 200 contrast and observing an excellent epidurogram with the epidural spread of the dye, after negative aspiration for blood and CSF and in the absence of paresthesias. Again after negative aspiration, a 6 ml mixture containing 60 mg of Depo-medrol , and 2 ml of preservative free Normal Saline, and 2 ml of preservative free lidocaine 1% solution was injected and a washout of epidurogram was seen. Needle was withdrawn intact, skin was cleansed, and bandages were applied. COMPLICATIONS: None DISPOSITION / PLANS: The patient was placed in a supine position and transferred to the recovery area in a stable condition for observation. There was no evidence of lower extremity motor or sensory deficit after the procedure. Patient was discharged from the recovery room after meeting discharge criteria. Home discharge instructions were given to the patient by the staff. The patient was reexamined prior to discharge. The patient will schedule a follow up in the clinic in 2-4 weeks.
[2018-12-27 09:09] VITALS: PULSE 57
[2018-12-27] MEDS ORDERED: IV FLUID CONTINUATION 1,000 ML IV ONE (09:17)
[2018-12-27 09:22] VITALS: BP 145/87
--- NOTE | 2018-12-27 12:31 | FL ---
Fluoroscopy HISTORY: Pain 1 seconds fluoroscopy time supplied to the referring clinician. 1 intraoperative C-arm images docume nt the procedure. See dictated report from anesthesia.
== END 2018-12-27 09:41 | disposition home or self-care (01) ==
LOC: ORPAIN 07:26
PROVIDERS: ATTEND Specialist
DX: M47.26 Other spondylosis with radiculopathy, lumbar region (principal); M48.061 Spinal stenosis, lumbar region without neurogenic claudication; M51.16 Intervertebral disc disorders with radiculopathy, lumbar region; Z88.1 Allergy status to other antibiotic agents; Z88.6 Allergy status to analgesic agent; Z88.5 Allergy status to narcotic agent
CPT/HCPCS: 62323; J2250; J1030; J3010; Q9966

== ENCOUNTER → 2019-01-24 | Outpatient (CLI) | payer MEDICARE, OTHER ==
[2019-01-24 14:54] VITALS: BP 136/89; PULSE 61; RESP 18
--- NOTE | 2019-01-25 21:09 | P.PAINPG ---
Subjective Progress Note Date: 01/24/19 This is follow-up visit for this patient with a history of severe and chronic low back pain secondary to lumbar degenerative disc disease, lumbar facet arthropathy, lumbar spinal stenosis We have done an interventional pain procedure lumbar epidural steroid injections 2, she had partial improvement in her pain for a few days after each injection The patient currently on [place] 5/325 every 8 hours and Motrin when necessary Patient denies any side effect of the medication , patient denies any excessive drowsiness or sleepiness, patient denies any suicidal ideation, Patient reported that the current medication is helping to control the pain and improve the activity of daily livings, Patient denies any motor or sensory deficit, denies any change in the bowel movement or urination, patient denies any fever or night sweats. Objective - Vital Signs Vital signs: Vital Signs Temp Pulse 61 01/24/19 14:48 Resp 18 01/24/19 14:48 BP 136/89 01/24/19 14:48 Pulse Ox 96 01/24/19 14:48 - Exam Physical Examinations : -Constitutiona : Cooperative , not in acute distress . -HEENT : nech ; supple , no Lymphadenopathy , normal thyroid size . eyes : no ptosis , no icterus, no photophobia . ENT : normal of hearing , normal oropharynx , no Thrush . - Respiratory : Chest clear to auscultations Bilaterally , no wheezing , no Rhonchi . - Cardiovascula : regular rate and rhythem , S1 , S2 , no S3 , no S4. - Gastrointestina : abdomen soft no tenderness , bowel sounds , no organomegally . - Genitourinary : Defferred . - neurologic : Cranial nerve II to XII intact , no focal neurological deffecit . -psychatric : alert , oriented X 3 , appropriate affect , intact judgment and insight . -Lymphatic : no Lymphadenopathy . - musculoskeltal : Lumber spine moter stegnth lower extremities ,thigh and legs 5/5 Right side , 5/5 Left side deep tendon reflexes : normal Knee Jerk , normal ankle Jerk lumber facet Loading Test positive bilaterally Range of motion of the lumbar spine Flexion 30 degrees, extension 10 degrees strait leg raising test , positive at 60 degree Fabere test positive RT and positive LT . Tenderness over the sacroiliac joint bilaterally Diagnostic studies MRI of the lumbar spine= a grade 2 spondylolisthesis and lumbar facet arthropathy Assessment and Plan Plan: Assessment and plan= chronic low back pain secondary to lumbar degenerative disc disease , lumbar spondylosis with lumbar facet arthropathy . Patient had short-term and partial benefit after lumbar epidural steroid injection 2, Patient will be good candidate to have diagnostic medial branch block lumbar area at L3 4, L4 5, L5-S1 X2 and possible RFA Patient will continue to use [place] 5/325 and Motrin she is getting prescription refills from her primary care Time with Patient: Less than 30 PQRS Measure Charge Sheet Measure #130: Documentation of Current Meds in Medical Chart: Patient's medications documented in chart Measure #226: Tobacco Use: Screen & Cessation Intervention: Pt not a tobacco user Measure #111: Pneumonia Vaccination: Pneumococcal vaccine administered or prev iously received Measure #47: Advance Care Plan: Advance care planning discussed & documented, pt chose/unable to give Measure #412: Opioid Treatment Agreement: No documentation of signed opioid treatment agreement Measure #408: Opioid Therapy Follow-up Evaluation: Patient had NO f/u eval minimum every 3 months during opioid therapy Measure #317: Preventitive Care & Scrn High Bld Press & F/U: Normal blood pressure, f/u not required Measure #128: Body Mass Index (BMI) Screening & Follow-up: BMI documented ABOVE normal parameters - f/u documented Measure #131: Pain Assessment & Follow-up: Pain positive & plan documented, Follow-up scheduled Measure #431: Unhealthy Alcohol Use Preventative Care & Scrn: Patient not identified as an unhealthy alcohol user PQRS Narrative: Smoking Status Former smoker Do You Want the Pneumonia Yes Vaccine AT THIS TIME? Blood Pressure 136/89 Pain Intensity [Lower Back] 6 Scale Used Numeric (1 - 10) Hx Alcohol Use (MH) No Home Medications: Ambulatory Orders Atorvastatin Calcium [Lipitor] 40 mg PO HS 01/23/14 FLUoxetine HCL [PROzac] 60 mg PO DAILY 01/23/14 Irbesartan/Hydrochlorothiazide [Avalide 150-12.5 mg Tablet] 1 tab PO DAILY 01/23/14 QUEtiapine [SEROquel] 25 mg PO HS 01/23/14 Hydrocodone/Acetaminophen [Vicodin 5-300 mg Tablet] 1 tab PO Q8HR PRN 12/22/17 Tiotropium [place] [Spiriva Respimat] 2 puff INHALATION DAILY 12/22/17 Cyanocobalamin (Vitamin B-12) [Vitamin B-12] 1,000 mcg PO DAILY 04/11/18 Albuterol Inhaler [Ventolin Hfa Inhaler] 1 - 2 puff INHALATION RT-Q6H PRN 11/13/18 Cholecalciferol (Vitamin D3) [Vitamin D3] 2,000 unit PO DAILY 11/13/18 Diphenox-Atrop 2.5-0.025 mg [Lomotil] 1 tab PO TID PRN 11/13/18 Omeprazole 20 mg PO BID PRN 11/13/18 Propranolol HCl [Inderal] 60 mg PO DAILY 11/13/18 Solifenacin Succinate [Vesicare] 5 mg PO DAILY 11/13/18 clonazePAM [KlonoPIN] 2 mg PO BID 11/13/18 clonazePAM [KlonoPIN] 1 mg PO 1400 12/06/18 Acetaminophen [Tylenol Extra Strength] 500 mg PO DIRECTED PRN 12/24/18 Ibuprofen 200 mg PO DIRECTED PRN 12/24/18 Controlled Substance Measures - Controlled Substance Measures Is patient prescribed a controlled substance at discharge?: No
== END ==
LOC: PNWHC3 14:22
PROVIDERS: ATTEND Specialist
DX: G89.29 Other chronic pain (principal); M51.36 Other intervertebral disc degeneration, lumbar region; M47.816 Spondylosis without myelopathy or radiculopathy, lumbar region; M46.96 Unspecified inflammatory spondylopathy, lumbar region; Z79.891 Long term (current) use of opiate analgesic; Z79.1 Long term (current) use of non-steroidal anti-inflammatories (NSAID); Z87.891 Personal history of nicotine dependence; Z79.899 Other long term (current) drug therapy
CPT/HCPCS: 99211

== ENCOUNTER 2019-02-04 06:02 | Day surgery (SDC) | payer MEDICARE, OTHER ==
[2019-01-30 14:07] VITALS: BMI 43.9
[~2019-02-04 06:02] MED LIST: LACTATED RINGERS 1,000 ML IV SCH
[2019-02-04] MEDS ORDERED: LIDOCAINE 1% 20 ML VIAL (10MG/ML) FOR IV START INTRADERMA ONE (06:45)
[2019-02-04 06:47] VITALS: TEMP 97
[2019-02-04 06:54] LABS: Glucose,Whole Blood 107 mg/dL (75-99)
--- NOTE | 2019-02-04 07:47 | P.PCN ---
Date of Procedure: 02/04/19 Procedure(s) Performed: PREOPERATIVE DIAGNOSIS : 1- Lumbar spondylosis with Facet Arthropathy without myelopathy . 2- Lumber degenerative disc disease POSTOPERATIVE DIAGNOSIS: 1- Lumbar spondylosis with Facet Arthropathy without myelopathy . 2- Lumber degenerative disc disease PROCEDURE: Diagnostic bilateral L3 -4 , L4 -5 , and L5-S1 medial branch block under fluoroscopy ANESTHESIA: moderate sedation with intravenous Versed 1 mg and Fentanyl 50 mcg. EBL: Minimal COMPLICATION: None. IV FLUIDS: 100 mL of normal saline. PROCEDURE INDICATION: Chronic low back pain secondary to Facet arthropathy unresponsive to conservative treatment. PROCEDURE DESCRIPTION: the patient was seen and identified in the preop holding area , risks and benefits and possible complications of the procedure and alternative were discussed with the patient, and the patient agreed to proceed with the procedure and signed the consent IV was started and vital signs monitored during the procedure and fluoroscopy was used to maximize the benefit and accuracy of the needle placement, and sedation was given to decrease patient anxiety, patient was taken to the procedure room and placed in prone position vital signs monitored in the back prepped with chlorhexidine X3 then under strict sterile technique using a right oblique fluoroscopy ,the junction of the transverse process and the superior articulating process of the right L3- 4 , L4- 5, and L5-S1 vertebra which corresponding to the fluoroscopy image of the eye of the Javi dog on the block side for the medial branches and subsequently , after local infiltration of skin and subcu tissuies with Ropivacaine 0.5 % , one mL at each level ,then 22-gauge Quincke-type needles , 3 needle was used , each one of them placed at the junction of the base of the transverse process and the superior articular process at the appropriate level, and the needle was advanced until the periosteum contacted, needle placement confirmed with AP oblique and lateral view and after appropriate needle placement confirmed, and after negative aspiration for heme and CSF and there was no paresthesia 1-1/2 mL of Ropivacaine 0.5% mixed with 20 mg Depo-Medrol , then half mL injected at each level after negative aspiration the needle subsequently removed and the same procedure repeated for the left side at left side at L3-4, L4- 5 and L5-S1 levels. At the end of the procedure and the needles removed and a bandage applied after the skin was cleaned the cleaning solution patient taken to recovery room in stable condition and monitors in the recovery room for 20-30 minutes and discharged home in stable condition after discharge criteria met and patient will follow up with the pain clinic in 2-4 weeks
--- NOTE | 2019-02-04 08:06 | FL ---
Fluoroscopy HISTORY: Pain 13 seconds fluoroscopy time supplied to the referring clinician. 4 intraoperative C-arm images docum ent the procedure. See dictated report from anesthesia.
[2019-02-04 08:24] VITALS: BP 109/58; PULSE 61; RESP 17
== END 2019-02-04 08:26 | disposition home or self-care (01) ==
LOC: ORPAIN 06:02
PROVIDERS: ATTEND Specialist
DX: G89.29 Other chronic pain (principal); M47.816 Spondylosis without myelopathy or radiculopathy, lumbar region; Z88.1 Allergy status to other antibiotic agents; Z88.5 Allergy status to narcotic agent; Z91.09 Other allergy status, other than to drugs and biological substances; I48.91 Unspecified atrial fibrillation; J44.9 Chronic obstructive pulmonary disease, unspecified
CPT/HCPCS: 64493; 64494; 64495; J2250; J1030; J3010; 99152

== ENCOUNTER 2019-02-18 06:47 | Day surgery (SDC) | payer MEDICARE, OTHER ==
[2019-02-14 10:48] VITALS: BMI 43.8
[2019-02-18 07:39] VITALS: RESP 16; TEMP 97.8
[2019-02-18] MEDS ORDERED: LIDOCAINE 1% 20 ML VIAL (10MG/ML) FOR IV START INTRADERMA ONE (07:52)
[2019-02-18] MEDS ORDERED: LACTATED RINGERS 1,000 ML IV ONE (07:52)
--- NOTE | 2019-02-18 08:12 | P.PCN ---
Date of Procedure: 02/18/19 Description of Procedure: Procedure: lumbar Medial Branch Block at L3 4, L4 5, L5-S1 bilateral Diagnosis: Lumbar spondylosis without myelopathy Anesthesia: Local and 2 mg of Versed (conscious sedation) The patient was seen and examined in the PO. Procedure risks and benefits were fully reviewed with the patient. The patient understands this is a diagnostic if local only is used, as will be the case today. The goal of the procedure is to inject medication onto the medial branch or small nerves that innervate the facet joints. In this way, we can hopefully identify which of these joints, if any, may be contributing to their pain. Informed consent for procedure was obtained. The patient was taken into the office fluoroscopy procedure room and placed prone on the table. A pillow was placed under the abdomen to reduce lumbar lordosis. Vital signs were closely monitored during the procedure. The skin over the area was prepped with Betadine X 3 and draped in usual sterile manner. Sterile technique was observed throughout procedure. Under biplanar fluoroscopic guidance, the target injection area of the L3, L4, L5, S1 were targeted. A 25 gauge 31/2 inch spinal needle was then placed at the most medial and superior aspect of the transverse process near the "eye of the Javi dog". Aspiration for blood was negative. 1 cc of 0.5% Ropivacaine was injected into the targeted areas separately. [place] were withdrawn intact. No complications were noted during the procedure. The patient tolerated the procedure well. The patient was placed in supine position and transferred to the recovery area for observation and remained stable until discharged home. Home discharge instructions were given to the patient by the staff. We will try to perform a lumbar radiofrequency ablation before the patient goes on vacation
[2019-02-18] MEDS ORDERED: IV FLUID CONTINUATION 1,000 ML IV ONE (08:35)
--- NOTE | 2019-02-18 08:53 | FL ---
Fluoroscopy HISTORY: Pain 26 seconds fluoroscopy time supplied to the referring clinician. 7 intraoperative C-arm images docum ent the procedure. See dictated report from anesthesia.
[2019-02-18 09:01] VITALS: BP 127/74; PULSE 62
== END 2019-02-18 09:23 | disposition home or self-care (01) ==
LOC: ORPAIN 06:47
PROVIDERS: ATTEND Hospitalist
DX: M47.816 Spondylosis without myelopathy or radiculopathy, lumbar region (principal); Z88.1 Allergy status to other antibiotic agents; Z91.09 Other allergy status, other than to drugs and biological substances; R32 Unspecified urinary incontinence
CPT/HCPCS: 64493; 64494; 64495; J2250; 64636

== ENCOUNTER → 2019-04-11 | Outpatient (CLI) | payer MEDICARE, OTHER ==
[2019-04-11 14:16] VITALS: BP 118/86; PULSE 58; RESP 20
--- NOTE | 2019-04-12 10:45 | P.PAINPG ---
Subjective Progress Note Date: 04/11/19 This is follow-up visit for this patient with a history of severe and chronic low back pain secondary to lumbar degenerative disc disease, lumbar facet arthropathy, lumbar spinal stenosis she returns for follow-up today following bilateral lumbar medial branch blocks done on 02/04/2019 and 02/18/2019. She reports greater than 50% relief of pain from these procedures. Today, however her primary pain complaint is neck pain. She reports that in February 2019 she was driving back from [place] and turn to get something from the back of the car, then felt severe neck pain radiating to the left shoulder and medial aspect of arm. She had significant pain for about 2 weeks, which has gotten better over time with use of ibuprofen she rates this pain as 4/10. Pain is worse with turning her neck, better with positioning a pillow under her neck. She underwent a C-spine MRI. See report below. he is also complaining of bilateral feet pain. The patient currently takes on [place] 5/325 every 8 hours and Motrin when necessary. Patient denies any side effect of the medication , patient denies any excessive drowsiness or sleepiness, patient denies any suicidal ideation, Patient reported that the current medication is helping to control the pain and improve the activity of daily livings, Patient denies any motor or sensory deficit, denies any change in the bowel movement or urination, patient denies any fever or night sweats. Review of systems is negative for chest pain, shortness of breath, new onset weakness, numbness/tingling, abdominal pain, malaise, fever, night sweats, chills, homicidal or suicidal ideation, or bowel incontinence. Patient does endorse chronic bladder incontinence, mild constipation, chronic shortness of breath and palpitations. Objective Physical exam: Vitals: Reviewed in EMR GENERAL: Well appearing, in no acute distress PSYCH: Mood and affect is appropriate. Awake, alert, and oriented SKIN: Skin color, texture, turgor normal, no rashes or lesions HEENT: Normocephalic, atraumatic. EOM intact CV: No pedal edema RESP: Respirations are unlabored, no audible wheezing GI: Abdomen non-distended MUSCULOSKELETAL: Bilateral upper and lower extremity strength is normal and symmetric. No atrophy or tone abnormalities are noted. bilateral hand resting tremors present. Neck: tenderness to palpation over the cervical paraspinous muscles bilaterally. Spurling negative, Axial Loading Test negative, Man's sign negative. mild pain with neck flexion, extension, or lateral flexion. No obvious deformity or signs of trauma. Normal cervical lordotic curve and normal cervical spine range of motion Lumbar spine: Straight leg raising in the sitting position is negative for radicular pain. tenderness to palpation over the lumbar spine and paraspinous muscles. positive for pain with facet loading and back extension/rotation bilaterally. Buttocks: No pain to palpation over the PSIS, sacroiliac joint maneuvers are negative for pain. Extremities: Peripheral joint ROM is full and pain free without obvious instability or laxity in all four extremities. No edema or skin discolorations noted. Gait: Gait is normal NEUR: Bilateral upper and lower extremity coordination and muscle stretch reflexes are physiologic and symmetric. Negative clonus bilaterally. No loss of sensation is noted. MRI cervical spine done on 03/29/[address] [facility] MRI shows grade 1 retrolisthesis at C5-C6 and grade 1 anterolisthesis at C7-T1. Moderate multilevel degenerative disc disease with facet hypertrophy. Mild multilevel spinal canal stenosis and mild right and moderate left neuroforaminal stenosis at C5-6 and C6-7. Assessment and Plan Plan: Assessment and plan= chronic low back pain secondary to lumbar degenerative disc disease , lumbar spondylosis with lumbar facet arthropathy . Patient had greater than 50% relief from lumbar medial branch blocks, however she would like to have her neck pain addressed prior to proceeding with lumbar radiofrequency ablation as the neck pain is her primary pain complaint. cervicalgia, cervical degenerative disc disease, cervical spinal stenosis, cervical radiculopathy without myelopathy: We will schedule the patient for C7- T1 epidural steroid injection. Patient was educated on the importance of weight loss and exercises. We will plan on sending her to physical therapy following lumbar radiofrequency ablation in the future. Patient will continue to use [place] 5/325 and Motrin she is getting prescription refills from her primary care She was encouraged to discuss use of gabapentin with her primary care physician. Objective - Vital Signs Vital signs: Vital Signs Temp Pulse 58 L 04/11/19 14:06 Resp 20 04/11/19 14:06 BP 118/86 04/11/19 14:06 Pulse Ox 97 04/11/19 14:06 Intake & Output 04/11/19 04/12/19 04/12/19 18:59 06:59 18:59 Weight 108.862 kg PQRS Measure Charge Sheet Measure #130: Documentation of Current Meds in Medical Chart: Patient's medications documented in chart Measure #226: Tobacco Use: Screen & Cessation Intervention: Pt not a tobacco user Measure #47: Advance Care Plan: Advance care planning discussed & documented, pt chose/unable to give Measure #412: Opioid Treatment Agreement: No documentation of signed opioid treatment agreement Measure #317: Preventitive Care & Scrn High Bld Press & F/U: Normal blood pressure, f/u not required Measure #128: Body Mass Index (BMI) Screening & Follow-up: BMI documented ABOVE normal parameters - f/u documented Measure #131: Pain Assessment & Follow-up: Pain positive & plan documented, Follow-up scheduled Measure #431: Unhealthy Alcohol Use Preventative Care & Scrn: Patient not identified as an unhealthy alcohol user PQRS Narrative: Smoking Status Former smoker Blood Pressure 118/86 Pain Intensity [Generalized] 4 Scale Used Numeric (1 - 10) Hx Alcohol Use (MH) No Home Medications: Ambulatory Orders Atorvastatin Calcium [Lipitor] 40 mg PO HS 01/23/14 FLUoxetine HCL [PROzac] 60 mg PO DAILY 01/23/14 Irbesartan/Hydrochlorothiazide [Avalide 150-12.5 mg Tablet] 1 tab PO DAILY 01/23/14 QUEtiapine [SEROquel] 25 mg PO HS 01/23/14 Hydrocodone/Acetaminophen [Vicodin 5-300 mg Tablet] 1 tab PO Q8HR PRN 12/22/17 Tiotropium [place] [Spiriva Respimat] 2 puff INHALATION DAILY 12/22/17 Cyanocobalamin (Vitamin B-12) [Vitamin B-12] 1,000 mcg PO DAILY 04/11/18 Albuterol Inhaler [Ventolin Hfa Inhaler] 1 - 2 puff INHALATION RT-Q6H PRN 11/13/18 Cholecalciferol (Vitamin D3) [Vitamin D3] 2,000 unit PO DAILY 11/13/18 Diphenox-Atrop 2.5-0.025 mg [Lomotil] 1 tab PO TID PRN 11/13/18 Omeprazole 20 mg PO BID PRN 11/13/18 Propranolol HCl [Inderal] 60 mg PO DAILY 11/13/18 Solifenacin Succinate [Vesicare] 5 mg PO DAILY 11/13/18 clonazePAM [KlonoPIN] 2 mg PO HS 11/13/18 Acetaminophen [Tylenol Extra Strength] 500 mg PO Q4-6H PRN 12/24/18 Ibuprofen 200 mg PO Q6H PRN 12/24/18 Controlled Substance Measures - Controlled Substance Measures Is patient prescribed a controlled substance at discharge?: No
== END | disposition home or self-care (01) ==
LOC: PNWHC3 12:57
PROVIDERS: ATTEND Anesthesiology
DX: G89.29 Other chronic pain (principal); M51.36 Other intervertebral disc degeneration, lumbar region; M47.816 Spondylosis without myelopathy or radiculopathy, lumbar region; M46.96 Unspecified inflammatory spondylopathy, lumbar region; M48.02 Spinal stenosis, cervical region; M50.10 Cervical disc disorder with radiculopathy, unspecified cervical region; Z87.891 Personal history of nicotine dependence; Z79.899 Other long term (current) drug therapy; Z79.891 Long term (current) use of opiate analgesic; Z79.1 Long term (current) use of non-steroidal anti-inflammatories (NSAID)
CPT/HCPCS: 99211

== ENCOUNTER 2019-04-22 05:57 | Day surgery (SDC) | payer MEDICARE, OTHER ==
[2019-04-16 14:43] VITALS: BMI 45.3
[2019-04-22 06:52] VITALS: RESP 16; TEMP 97.8
--- NOTE | 2019-04-22 08:01 | P.PCN ---
Date of Procedure: 04/22/19 Procedure(s) Performed: Diagnosis: Cervical radiculopathy Cervical degenerative disc disease POSTOPERATIVE DIAGNOSIS: Diagnoses: Cervical radiculopathy Cervical degenerative disc disease PROCEDURE Cervical Epidural steroid injection under fluoroscopic guidance at the C7-T1 interspace using left paramedian approach Cervical epidurogram ANESTHESIA: Local with 1% lidocaine 3 ml and IV sedation with Versed and fentanyl Fluoroscopy was used for the procedure and images were saved in the radiology portion of the chart. EBL: Minimal PROCEDURE INDICATION: The patient presents with cervical radicular symptoms unresponsive to conservative treatment. This is the first cervical epidural steroid injection. PROCEDURE DESCRIPTION / TECHNIQUE: The patient was seen and identified in the preoperative area. Risks, benefits, complications including but not limited to infections ,bleeding ,allergic reaction to the medications ,nerve damage and incomplete pain relief, and alternatives were discussed with the patient. The patient agreed to proceed with the procedure and signed the consent. IV was started, and vital signs were stable. Patient was taken to the OR and time out was completed. The patient was placed in the prone position on procedure table and a pillow was placed under the chest area. The cervical area was prepped and draped in the usual sterile fashion. Conscious sedation was used during the procedure to decrease patients anxiety. Vital signs was monitored during the entire procedure. Using anterior-posterior fluoroscopy, the C7-T1 interlaminar space was identified and the skin over this site was marked and then infiltrated with 1% lidocaine subcutaneously. Subsequently, a 20-gauge Tuohy epidural needle was inserted and advanced toward the epidural space using the loss of resistance technique and guided by AP and 50 oblique fluoroscopy. The correct needle position in the epidural space was verified. After negative aspiration for blood and CSF and in the absence of paresthesias, Isovue 200 2 mL's was injected under live fluoroscopy with good epidural spread. After negative aspiration, a 5 ml mixture containing 10 mg of dexamethasone, 3 mL of preservative free normal saline and 1 mL of 1% lidocaine was injected. Needle was withdrawn intact, skin was cleansed, and bandages were applied. COMPLICATIONS: None DISPOSITION / PLANS: The patient was placed in a supine position and transferred to the recovery area in a stable condition for observation. There was no evidence of lower extremity motor or sensory deficit after the procedure. Patient was discharged from the recovery room after meeting discharge criteria. Home discharge instructions were given to the patient by the staff. The patient is scheduled to undergo left lumbar radiofrequency ablation in 2-4 weeks.
[2019-04-22] MEDS ORDERED: IV FLUID CONTINUATION 600 ML IV ONE (08:06)
[2019-04-22 08:29] VITALS: BP 108/57; PULSE 60
--- NOTE | 2019-04-22 09:52 | FL ---
EXAMINATION TYPE: FL guided pain mgmt statistic DATE OF EXAM: 04/22/2019 HISTORY: Flouroscopy time 11 seconds of fluoroscopy provided. IMPRESSION: 1. Fluoroscopy time.
== END 2019-04-22 08:38 | disposition home or self-care (01) ==
LOC: ORPAIN 05:57
PROVIDERS: ATTEND Anesthesiology
DX: M50.33 Other cervical disc degeneration, cervicothoracic region (principal); M54.12 Radiculopathy, cervical region; G89.29 Other chronic pain; M51.36 Other intervertebral disc degeneration, lumbar region; M47.816 Spondylosis without myelopathy or radiculopathy, lumbar region; Z87.891 Personal history of nicotine dependence; Z79.899 Other long term (current) drug therapy
CPT/HCPCS: 62321; J2250; J1100; J3010; Q9966; 99152

== ENCOUNTER 2019-05-06 08:13 | Day surgery (SDC) | payer MEDICARE, OTHER ==
[2019-04-29 14:28] VITALS: BMI 45.1
[2019-05-06 08:32] VITALS: RESP 16; TEMP 97.8
--- NOTE | 2019-05-06 09:28 | P.PCN ---
Date of Procedure: 05/06/19 Procedure(s) Performed: OPERATION: Radiofrequency ablation of the medial branch lumbar area at left side, L3 medial branch, L4 medial branch, and dorsal rami of 5 levels under fluoroscopic guidance. PREOPERATIVE DIAGNOSES: 1. Lumbar facet arthropathy. 2. Lumbar degenerative disc disease. POSTOPERATIVE DIAGNOSES: 1. Lumbar facet arthropathy. 2. Lumbar degenerative disc disease. COMPLICATIONS: None. PHYSICIAN: Amada Weston MD ANESTHESIA: moderate sedation with local infiltration. 2 mg of Versed and 100 g of fentanyl CONDITION: Stable. INDICATION FOR THE PROCEDURE: This is 69-year-old female with a history of low back pain. Procedure, risks and benefits discussed with the patient who agreed with proceeding. Patient taken to the operating room, placed in prone position. All standard monitors applied to the patient. Then after induction of anesthesia, back prepped with Betadine 3 times. Then under fluoroscopic guidance we used 1% lidocaine 5 mL for skin and subcutaneous tissue infiltrations, Then after that, 20-gauge radiofrequency active-tip needles, 3 needles used, each one of them placed at the junction of the base of the transverse process and the superior articulating process of the left side at, L3-4, L4-5 and L5-S1 levels. Needle placement confirmed with AP and oblique and lateral views. Then after appropriate needle placement confirmed, we checked for the motor stimulation at 2.5 v, which was positive for localized contractions in the lumbar area and there were no contractions in the lower extremities. Then 1 cc of 4% lidocaine was injected into each needle. Then after that, the radiofrequency done at 80 degrees Centigrade for 90 seconds at each level. The needles were subsequently removed. Patient tolerated the procedure well without any complication and will follow up with the pain clinic in few weeks.
[2019-05-06 10:01] VITALS: BP 112/77; PULSE 56
[2019-05-06] MEDS ORDERED: IV FLUID CONTINUATION 300 ML IV ONE (10:01)
--- NOTE | 2019-05-06 11:57 | FL ---
Fluoroscopy HISTORY: Pain 11 seconds fluoroscopy time supplied to the referring clinician. 3 intraoperative C-arm images docum ent the procedure. See dictated report from anesthesia.
== END 2019-05-06 10:05 | disposition home or self-care (01) ==
LOC: ORPAIN 08:13
PROVIDERS: ATTEND Student in an Organized Health Care Education/Training Program
DX: M47.816 Spondylosis without myelopathy or radiculopathy, lumbar region (principal); M12.88 Other specific arthropathies, not elsewhere classified, other specified site; M51.36 Other intervertebral disc degeneration, lumbar region
CPT/HCPCS: 64635; 64636; J2250; J2001; J3010; 99152

== ENCOUNTER → 2019-06-11 | Outpatient (CLI) | payer MEDICARE, OTHER ==
[2019-06-11 13:24] VITALS: BP 139/79; PULSE 55; RESP 16
--- NOTE | 2019-06-11 14:38 | P.PAINPG ---
Subjective Progress Note Date: 06/11/19 This is a follow-up for Mrs. Ortega 69-year-old female status post left-sided lumbar RFA. A follow-up appointment was scheduled prior to the ablation of the right side, because she does have significant pain below the belt line in the SI joint region. After the RFA she does report some pain reduction, however her pain murmurs are still very high at 10 out of 10. Both she and her however report increased functionality, and flexibility. She is interested in getting the right side done today. That report any bowel or bladder dysfunction or new weakness. Objective - Vital Signs Vital signs: Vital Signs Temp Pulse 55 L 06/11/19 13:18 Resp 16 06/11/19 13:18 BP 139/79 06/11/19 13:18 Pulse Ox 94 L 06/11/19 13:18 - Exam Vital Signs: Reviewed in EMR GENERAL: Well appearing, in no acute distress, PSYCH: Mood and affect is appropriate. Awake, alert, and oriented SKIN: Skin color, texture, turgor normal, no rashes or lesions HEENT: Normocephalic, atraumatic. EOM intact CV: No pedal edema RESP: Respirations are unlabored, no audible wheezing GI: Abdomen non-distended MUSCULOSKELETAL: Bilateral upper and lower extremity strength is normal and s ymmetric. No atrophy or tone abnormalities are noted. Lumbar spine: Positive pain to palpation over the lumbar spine and paraspinous muscles. Positive for pain with facet loading and back extension/rotation. Buttocks: She does have pain over the bilateral PSIS, Em's test are positive bilaterally Extremities: Peripheral joint ROM is full and pain free without obvious instability or laxity in all four extremities. No edema or skin discolorations noted. Gait: Gait is anantalgic NEUR: Bilateral upper and lower extremity coordination and muscle stretch reflexes are physiologic and symmetric. No loss of sensation is noted. Cranial nerves are grossly intact. Assessment and Plan Assessment: Assessment: 1. Lumbar spondylosis 2. Bilateral SI joint dysfunction 3. Obesity Plan: 1. Explanation: I explained to her that her low back pain is likely coming from multiple sources, it is likely related to lumbar facet arthropathy and SI joint dysfunction. She expressed understanding of the causes of her pain. 2. Opioid agreement: None 3. Counseling: The patient was counseled extensively on BODY MASS INDEX, EXER CISE. Specifically, the patient was instructed regarding the importance of weight control, and exercise in the context of both chronic pain and overall health. We spent a significant amount of time speaking about her losing weight 4. Procedures: Right-sided lumbar RFA. She will likely need SI joint injections for better control of her low back pain in the future. 5. Consultations: None 6. Investigations: MRI reviewed 7. Medications: Encouraged patient to have discussions with primary care physician 8. Disposition: For her radiofrequency ablation , PQRS Measure Charge Sheet Measure #226: Tobacco Use: Screen & Cessation Intervention: Pt not a tobacco user Measure #111: Pneumonia Vaccination: Pneumococcal vaccine administered or previously received Measure #47: Advance Care Plan: Advance care planning discussed & documented, pt chose/unable to give Measure #131: Pain Assessment & Follow-up: Pain positive & plan documented, Follow-up scheduled Measure #431: Unhealthy Alcohol Use Preventative Care & Scrn: Patient not identified as an unhealthy alcohol user PQRS Narrative: Smoking Status Former smoker Blood Pressure 139/79 Pain Intensity [Back] 0 Scale Used Numeric (1 - 10) Hx Alcohol Use (MH) No Home Medications: Ambulatory Orders Atorvastatin Calcium [Lipitor] 40 mg PO HS 01/23/14 FLUoxetine HCL [PROzac] 60 mg PO DAILY 01/23/14 Irbesartan/Hydrochlorothiazide [Avalide 150-12.5 mg Tablet] 1 tab PO DAILY 01/23/14 QUEtiapine [SEROquel] 25 mg PO HS 01/23/14 Hydrocodone/Acetaminophen [Vicodin 5-300 mg Tablet] 1 tab PO Q8HR PRN 12/22/17 Tiotropium [place] [Spiriva Respimat] 2 puff INHALATION DAILY 12/22/17 Cyanocobalamin (Vitamin B-12) [Vitamin B-12] 1,000 mcg PO DAILY 04/11/18 Albuterol Inhaler [Ventolin Hfa Inhaler] 1 - 2 puff INHALATION RT-Q6H PRN 11/13/18 Cholecalciferol (Vitamin D3) [Vitamin D3] 2,000 unit PO DAILY 11/13/18 Diphenox-Atrop 2.5-0.025 mg [Lomotil] 1 tab PO TID PRN 11/13/18 Omeprazole 20 mg PO BID PRN 11/13/18 Propranolol HCl [Inderal] 60 mg PO DAILY 11/13/18 Solifenacin Succinate [Vesicare] 10 mg PO DAILY 11/13/18 clonazePAM [KlonoPIN] 2 mg PO HS 11/13/18 Acetaminophen [Tylenol Extra Strength] 500 mg PO Q4-6H PRN 12/24/18 Ibuprofen 200 mg PO Q6H PRN 12/24/18 Controlled Substance Measures - Controlled Substance Measures Is patient prescribed a controlled substance at discharge?: No
== END ==
LOC: PNWHC3 13:00
PROVIDERS: ATTEND Student in an Organized Health Care Education/Training Program
DX: M47.816 Spondylosis without myelopathy or radiculopathy, lumbar region (principal); M53.3 Sacrococcygeal disorders, not elsewhere classified; E66.9 Obesity, unspecified; Z87.891 Personal history of nicotine dependence; Z79.899 Other long term (current) drug therapy; Z79.891 Long term (current) use of opiate analgesic; Z79.1 Long term (current) use of non-steroidal anti-inflammatories (NSAID)
CPT/HCPCS: 99211

== ENCOUNTER 2019-06-24 07:49 | Day surgery (SDC) | payer MEDICARE, OTHER ==
[2019-06-19 14:42] VITALS: BMI 43.9
[2019-06-24 08:09] VITALS: TEMP 97.5
[2019-06-24] MEDS ORDERED: LIDOCAINE 1% 20 ML VIAL (10MG/ML) FOR IV START INTRADERMA ONE (08:16)
--- NOTE | 2019-06-24 08:46 | P.PCN ---
Date of Procedure: 06/24/19 Surgeon: Katlyn Alvarez Pathology: none sent Condition: stable Disposition: PACU Description of Procedure: PREOPERATIVE DIAGNOSIS: Lumbar spondylosis without myelopathy, morbid obesity POSTOPERATIVE DIAGNOSIS: Lumbar spondylosis without myelopathy,morbid obesity PROCEDURES : Right Radiofrequency thermocoagulation L3-L4, L4-L5, and L5-S1 medial branch, with fluoroscopic guidance ANESTHESIA: IV moderate conscious sedation with versed and fentanyl and local infiltration with lidocaine 1% 5 ml EBL: Minimal PROCEDURE INDICATION: The patient with low back pain secondary to lumbar facet arthropathy who had more than 50% relief of her pain with previous diagnostic lumbar medial branch block with bupivacaine. PROCEDURE DESCRIPTION / TECHNIQUE: The patient was seen and identified in the preoperative area. Risks, benefits, complications, including but not limited to risk of infection ,bleeding , allergic reactions to the medications and no complete pain relief , and alternatives were discussed with the patient, the patient agreed to proceed with the procedure and signed the consent. IV was started. Vital signs remained stable throughout the procedure. Patient was taken to the OR and time out was completed. The patient was placed in the prone position on the procedure table. The lumber area was prepped and draped in the usual sterile fashion. . Vital signs were closely monitored during the procedure .IV sedation was used during the procedure to decrease patients anxiety. The target points were identified as follows: For the L5-S1 level which corresponds to the dorsal ramus of L5 the target point was at the superior medial aspect of the sacral ala on the ---- side of the spine on the AP view of fluoroscopy and for the L3, and L4 medial branches the target points were at the connection between the transverse process and the superior articular process of L4, and L5 vertebra respectively on the Rtoblique view of fluoroscopy. skin was marked, and localized with 1% lidocaineat these points. Subsequently, an 18 [id number] radiofrequency needles with a 10-mm curved active tips were advanced guided by fluoroscopy to each of the target points mentioned above in a superior medial direction to get the active tips as parallel as possible to the medial branches tracks. AP, oblique, and lateral views of fluoroscopy were used to verify needle tips position. Each level then underwent motor testing at 2.5 Hz and 0 to 3 volt with local stimulation, but no radicular symptoms down the legs. Thereafter radiofrequency thermocoagulation at 80 degrees celsius for 90 seconds after injecting 1 ml of PF Marcaine 0.5%(3 mls) with 40 mg of Kenalog. At the end of the procedure, the skin was cleansed and bandages were applied. COMPLICATIONS: No acute complications. DISPOSITION / PLANS: The patient was placed in a supine position and transferred to the recovery area in a stable condition for observation and was discharged from the recovery room after meeting discharge criteria. Home discharge instructions given to the patient by the staff. The patient was reexamined prior to discharge. The patient will schedule a follow up in the clinic in 2-4 weeks.
[2019-06-24] MEDS ORDERED: IV FLUID CONTINUATION 600 ML IV ONE (08:50)
--- NOTE | 2019-06-24 08:54 | FL ---
Fluoroscopy HISTORY: Pain 22 seconds fluoroscopy time supplied to the referring clinician. 3 intraoperative C-arm images docum ent the procedure. See dictated report from anesthesia.
[2019-06-24 08:57] VITALS: RESP 18
[2019-06-24 09:25] VITALS: BP 134/76; PULSE 78
== END 2019-06-24 09:25 | disposition home or self-care (01) ==
LOC: ORPAIN 07:49
PROVIDERS: ATTEND Anesthesiology
DX: M47.816 Spondylosis without myelopathy or radiculopathy, lumbar region (principal); M53.3 Sacrococcygeal disorders, not elsewhere classified; E66.01 Morbid (severe) obesity due to excess calories; Z68.41 Body mass index [BMI] 40.0-44.9, adult; Z87.891 Personal history of nicotine dependence; Z79.899 Other long term (current) drug therapy; Z79.891 Long term (current) use of opiate analgesic; Z79.1 Long term (current) use of non-steroidal anti-inflammatories (NSAID); Z88.4 Allergy status to anesthetic agent; Z88.1 Allergy status to other antibiotic agents; Z88.5 Allergy status to narcotic agent
CPT/HCPCS: 64635; 64636; J2250; J3301; J3010; 99152

== ENCOUNTER → 2019-07-31 | Outpatient (CLI) | payer MEDICARE, OTHER ==
[2019-07-31 13:44] VITALS: BP 119/59; PULSE 64; RESP 20
--- NOTE | 2019-07-31 14:11 | P.PAINPG ---
Subjective Progress Note Date: 07/31/19 This is follow-up visit for this patient with a history of severe and chronic low back pain secondary to lumbar degenerative disc disease, lumbar facet arthropathy, lumbar spinal stenosis We have done an interventional pain procedure lumbar epidural steroid injections 2, she had partial improvement in her pain for a few days after each injection , recently we have done RFA of the medial branch lumbar area, patient had good pain relief for a few weeks, the patient complaining of severe low back pain with radiation to the buttock bilaterally The patient currently on [place] 5/325 every 8 hours and Motrin 200 mg when necessary Patient denies any side effect of the medication , patient denies any excessive drowsiness or sleepiness, patient denies any suicidal ideation, Patient reported that the current medication is helping to control the pain and improve the activity of daily livings, Patient denies any motor or sensory deficit, denies any change in the bowel movement or urination, patient denies any fever or night sweats. Objective - Vital Signs Vital signs: Vital Signs Temp Pulse 64 07/31/19 13:33 Resp 20 07/31/19 13:33 BP 119/59 07/31/19 13:33 Pulse Ox 95 07/31/19 13:33 Intake & Output 07/30/19 07/31/19 07/31/19 18:59 06:59 18:59 Weight 108.409 kg - Exam Physical Examinations : -Constitutiona : Cooperative , not in acute distress . -HEENT : nech : supple , no Lymphadenopathy , normal thyroid size . : eyes : no ptosis , no icterus, no photophobia . - neurologic : Cranial nerve II to XII intact , no focal neurological deffecit . -psychatric : alert , oriented X 3 , appropriate affect , intact judgment and insight . -Lymphatic : no Lymphadenopathy . - musculoskeltal : Lumber spine moter stegnth lower extremities ,thigh and legs 4/5 Right side , 5/5 Left side deep tendon reflexes : normal Knee Jerk , normal ankle Jerk lumber facet Loading Test =positive Right , posiutive Left Range of motion of the lumbar spine Flexion 30 degrees, extension 10 degrees strait leg raising test = positive at degree Fabere test= positive Right , and positive LT . Sever tenderness over the Sacroiliac joint on the Right , and Left sides Gaenslen test= positive right ,and positive left . Seated flexion test= positive right ,and positive Left . Assessment and Plan Plan: Assessment and plan= chronic low back pain secondary to lumbar degenerative disc disease , lumbar spondylosis with lumbar facet arthropathy . Sacroiliitis Patient continued to have severe low back pain after lumbar epidural steroid injection and after RFA of the medial branch lumbar area MAPS Reviwed and it was apropriate . Medication managements= patient will be given a prescription for Motrin 600 mg every 8 hours when necessary for pain dispense 60 with 1 refill Interventions= patient could benefit from bilateral sacroiliac joint steroid injections , Time with Patient: Less than 30 PQRS Measure Charge Sheet Measure #130: Documentation of Current Meds in Medical Chart: Patient's medications documented in chart Measure #226: Tobacco Use: Screen & Cessation Intervention: Pt not a tobacco user Measure #111: Pneumonia Vaccination: Pneumococcal vaccine NOT administered or previously given Measure #47: Advance Care Plan: Advance care planning discussed & documented, pt chose/unable to give Measure #412: Opioid Treatment Agreement: No documentation of signed opioid treatment agreement Measure #408: Opioid Therapy Follow-up Evaluation: Patient had NO f/u eval minimum every 3 months during opioid therapy Measure #317: Preventitive Care & Scrn High Bld Press & F/U: Normal blood pressure, f/u not required Measure #128: Body Mass Index (BMI) Screening & Follow-up: BMI documented ABOVE normal parameters - f/u documented Measure #131: Pain Assessment & Follow-up: Pain positive & plan documented, Follow-up scheduled Measure #431: Unhealthy Alcohol Use Preventative Care & Scrn: Patient not identified as an unhealthy alcohol user PQRS Narrative: Smoking Status Former smoker Blood Pressure 119/59 Pain Intensity [Left Lower 5 Back] Scale Used Numeric (1 - 10) Hx Alcohol Use (MH) No Home Medications: Ambulatory Orders Atorvastatin Calcium [Lipitor] 40 mg PO HS 01/23/14 FLUoxetine HCL [PROzac] 60 mg PO DAILY 01/23/14 Irbesartan/Hydrochlorothiazide [Avalide 150-12.5 mg Tablet] 1 tab PO DAILY 01/23/14 QUEtiapine [SEROquel] 25 mg PO HS 01/23/14 Hydrocodone/Acetaminophen [Vicodin 5-300 mg Tablet] 1 tab PO Q8HR PRN 12/22/17 Tiotropium [place] [Spiriva Respimat] 2 puff INHALATION DAILY 12/22/17 Cyanocobalamin (Vitamin B-12) [Vitamin B-12] 1,000 mcg PO DAILY 04/11/18 Albuterol Inhaler [Ventolin Hfa Inhaler] 1 - 2 puff INHALATION Q6HR PRN 11/13/18 Cholecalciferol (Vitamin D3) [Vitamin D3] 2,000 unit PO DAILY 11/13/18 Omeprazole 20 mg PO BID PRN 11/13/18 Propranolol HCl [Inderal] 60 mg PO DAILY 11/13/18 clonazePAM [KlonoPIN] 2 mg PO HS 11/13/18 Acetaminophen [Tylenol Extra Strength] 500 mg PO Q4-6H PRN 12/24/18 Ibuprofen 200 mg PO Q6H PRN 12/24/18 Solifenacin Succinate [Vesicare] 10 mg PO DAILY 06/19/19 Controlled Substance Measures - Controlled Substance Measures Is patient prescribed a controlled substance at discharge?: No
== END | disposition home or self-care (01) ==
LOC: PNWHC3 13:14
PROVIDERS: ATTEND Specialist
DX: M51.36 Other intervertebral disc degeneration, lumbar region (principal); M47.816 Spondylosis without myelopathy or radiculopathy, lumbar region; M46.1 Sacroiliitis, not elsewhere classified; M46.96 Unspecified inflammatory spondylopathy, lumbar region; G89.29 Other chronic pain; F17.200 Nicotine dependence, unspecified, uncomplicated; Z79.891 Long term (current) use of opiate analgesic; Z79.899 Other long term (current) drug therapy
CPT/HCPCS: 99211

== ENCOUNTER → 2019-08-09 | Outpatient (CLI) | payer MEDICARE, OTHER ==
--- NOTE | 2019-08-12 08:46 | MM ---
Reason for exam: additional evaluation requested from prior study. Last mammogram was performed 1 year and 2 months ago. History: Patient is postmenopausal, has history of breast cancer at age 64, and history of other cancer. Malignant MG pre op needle loc LT of the left breast, November 03, 2014. Malignant US biopsy breast VAD LT of the left breast, October 24, 2014. Radiation therapy. Took estrogen for 22 years beginning at age 33. Took other hormone for 1 year. Physical Findings: Nurse Summary: 0.5cm nodule in the right breast at 12 o'clock (nurse TM). MG 3D Diag Mammo W/Cad PARISA Bilateral CC and MLO view(s) were taken. Prior study comparison: June 01, 2018, bilateral MG 3d diag mammo w/cad PARISA. May 31, 2017, bilateral MG 3d diag mammo w/cad PARISA. There are scattered fibroglandular densities. There is no discrete abnormality including area of concern. Ultrasound recommended. These results were verbally communicated with the patient and result sheet given to the patient on 08/09/19. ASSESSMENT: Incomplete: need additional imaging evaluation, BI-RAD 0 RECOMMENDATION: Ultrasound of the right breast.
--- NOTE | 2019-08-12 08:55 | USB ---
Reason for exam: additional evaluation requested from abnormal screening. History: Patient is postmenopausal, has history of breast cancer at age 64, and history of other cancer. Malignant MG pre op needle loc LT of the left breast, November 03, 2014. Malignant US biopsy breast VAD LT of the left breast, October 24, 2014. Radiation therapy. Took estrogen for 22 years beginning at age 33. Took other hormone for 1 year. US Breast Limited RT Right limited breast ultrasound including focal area of concern, retroareolar and axilla demonstrates a 2.0 x 2.0 x 0.9cm hypoechoic lesion at 12 o'clock. These results were verbally communicated with the patient and result sheet given to the patient on 08/09/19. ASSESSMENT: Benign, BI-RAD 2 RECOMMENDATION: Routine screening mammogram of both breasts in 1 year.
== END | disposition home or self-care (01) ==
LOC: RADMAMWWP 13:00
PROVIDERS: ATTEND Radiology Diagnostic Radiology
DX: R92.8 Other abnormal and inconclusive findings on diagnostic imaging of breast (principal); Z85.3 Personal history of malignant neoplasm of breast
CPT/HCPCS: 77066; 76642; G0279; 77062

== ENCOUNTER 2019-08-12 07:50 | Day surgery (SDC) | payer MEDICARE, OTHER ==
[2019-08-12 08:25] VITALS: TEMP 97.4
[2019-08-12] MEDS ORDERED: LIDOCAINE 1% 20 ML VIAL (10MG/ML) FOR IV START INTRADERMA ONE (08:28)
--- NOTE | 2019-08-12 09:37 | P.PCN ---
Date of Procedure: 08/12/19 Procedure(s) Performed: Procedure= bilateral sacral iliac joints steroid injection under fluoroscopy guidance (fluoroscopy image stored on file in the radiology Department ) Preoperative diagnosis= 1-sacroiliitis 2-lumbar degenerative disc disease 3- lumbar facet arthropathy Postoperative diagnosis=1-sacroiliitis 2-lumbar degenerative disc disease 3- lumbar facet arthropathy Complication = none Condition= stable Anesthesia= moderate sedation with intravenous Versed 1 mg , and fentanyl 50 micrograms and local infiltration with lidocaine 1% 5 mL Indication for the procedure= patient complaining of low back pain , examination was positive for severe tenderness over the sacroiliac joints bilaterally and patient diagnosed with sacroiliitis, for this reason he/ she was good candidate for sacroiliac joint steroid injection. Description of the procedure= procedure risk and benefits discussed with the patient, including but not limited, risk of infection and bleeding, and ALLERGIC reaction to the medication and not complete pain relief and patient agreed with the preceding patient taken to the operating room, placed in prone position or standard monitors applied to the patient then after induction of anesthesia back prepped with chlorhexidine 3 times , Then under strict sterile technique, first I did the right sacroiliac joint the which was identified under fluoroscopy guidance been local infiltration of the skin and subcu interstitial with lidocaine 1% then 22-gauge Quincke Needle advanced slowly under fluoroscopy and placed in the right sacroiliac joint needle placement confirmed with AP and oblique and lateral view and after appropriate needle placement confirmed and after negative aspiration, or heme , then Ropivacaine 0.5% 3 mL, and 20 mg of Depo-Medrol mixed together and injected in the right sacroiliac joint after negative aspiration patient tolerated the procedure well without any complication. Then the left sacroiliac joint steroid injection done under strict sterile technique local infiltration of the skin and subcu interstitial at the location of the left sacroiliac joint then a 22-gauge Quincke Needle advanced slowly under fluoroscopy time placed in the left sacroiliac joint, needle placement confirmed with AP and oblique and lateral view then after appropriate needle placement confirmed and after negative aspiration 0.5% Marcaine 3 mL and 20 mg of Depo-Medrol injected in the left sacroiliac joint after negative aspiration patient tolerated the procedure well that any complications and she will follow up in clinic 3 weeks
[2019-08-12 09:57] VITALS: PULSE 60; RESP 16
[2019-08-12] MEDS ORDERED: IV FLUID CONTINUATION 500 ML IV ONE (10:08)
[2019-08-12 10:11] VITALS: BP 120/79
--- NOTE | 2019-08-12 12:15 | FL ---
Fluoroscopy HISTORY: Pain 7 seconds fluoroscopy time supplied to the referring clinician. 2 intraoperative C-arm images docume nt the procedure. See dictated report from anesthesia.
== END 2019-08-12 10:22 | disposition home or self-care (01) ==
LOC: ORPAIN 07:50
PROVIDERS: ATTEND Specialist
DX: M46.1 Sacroiliitis, not elsewhere classified (principal); M51.36 Other intervertebral disc degeneration, lumbar region; M47.816 Spondylosis without myelopathy or radiculopathy, lumbar region; Z91.048 Other nonmedicinal substance allergy status; Z88.1 Allergy status to other antibiotic agents; Z88.5 Allergy status to narcotic agent
CPT/HCPCS: J2250; J1030; J3010; G0260

== ENCOUNTER → 2019-10-03 | Outpatient (CLI) | payer MEDICARE, OTHER ==
[2019-10-03 13:38] VITALS: BP 127/81; PULSE 73; RESP 16
--- NOTE | 2019-10-04 11:59 | P.PAINPG ---
Subjective Progress Note Date: 10/03/19 This is a follow-up for Mrs. Ibarra, a 69-year-old female who has been diagnosed with with lumbar spondylosis, bilateral SI joint dysfunction. She has been managed with a combination of pain medications from her primary care physician and interventional pain procedures. Most recently, she underwent bilateral SI joint injections obtained excellent relief from this procedure lasting about 2 months. Unfortunately, she had a fall in late August and the pain returned. She reports that the pain is similar to her prior pain, located in bilateral low back and buttocks radiating just past buttocks to the posterior thigh, worse on the left side. Pain is rated as 5/10. Occasionally the pain does radiate to the posterior aspect of bilateral legs up to feet. Pain is worse with any movement, and better with heat and lying supine. Current medications include when necessary Motrin, she is no longer taking narcotics. Of note, she had a recent brain MRI and her primary care physician told her that she has a "fungus under her cheekbone" and would like her to be evaluated by Dr. De Leon, ENT. Unfortunately, we do not have a copy of this MRI at this time. She also has a skin cancer patch located on right side of her nose, that she is scheduled to have removed early October. Also, she has had a few falls recently, her primary care physician is having her evaluated by a [place] for neuropathy. Review of systems is negative for chest pain, shortness of breath, new onset weakness, numbness/tingling, abdominal pain, malaise, fever, night sweats, chills, homicidal or suicidal ideation, or bowel or bladder incontinence. She endorses chronic constipation and bladder spasms as well as palpitations. She does endorse recent forgetfulness. Objective - Exam Vital Signs: Reviewed in EMR GENERAL: Well appearing, in no acute distress, obese PSYCH: Mood and affect is appropriate. Awake, alert, and oriented SKIN: Skin color, texture, turgor normal, no rashes or lesions HEENT: Normocephalic, atraumatic. EOM intact CV: No pedal edema RESP: Respirations are unlabored, no audible wheezing GI: Abdomen non-distended MUSCULOSKELETAL: Bilateral lower extremity strength is normal and symmetric. No atrophy or tone abnormalities are noted. Lumbar spine: Positive pain to palpation over the lumbar spine and paraspinous muscles. Positive for pain with facet loading and back extension/rotation. Buttocks: She does have pain over the bilateral PSIS, Em's test are positive bilaterally Extremities: Peripheral joint ROM is full and pain free without obvious instability or laxity in all four extremities. No edema or skin discolorations noted. Gait: Gait is anantalgic NEUR: Bilateral lower extremity coordination and muscle stretch reflexes are physiologic and symmetric. No loss of sensation is noted. Cranial nerves are grossly intact. Assessment and Plan Assessment: Assessment: 1. Lumbar spondylosis 2. Bilateral SI joint dysfunction 3. Obesity Plan: 1. Explanation: We discussed the need to have evaluation of "fungus under cheekbone" by ENT surgeon prior to proceeding with any steroid injections as this current flareup a fungal infection. She expressed understanding to this. 2. Opioid agreement: None 3. Counseling: The patient was counseled extensively on BODY MASS INDEX, EXERCISE. Specifically, the patient was instructed regarding the importance of weight control, and exercise in the context of both chronic pain and overall health. I provided her with an exercise handout. 4. Procedures: Following evaluation and clearance for steroid injections by Dr. De Leon, ENT, patient can schedule bilateral SI joint injections that she has had significant relief from this in the past. 5. Consultations: None, I would like to send the patient to physical therapy, she would like to wait until spring so that she doesn't have to drive in winter for this. 6. Investigations: None recent 7. Medications: No changes 8. Disposition: For bilateral SI joint injection PQRS Measure Charge Sheet Measure #130: Documentation of Current Meds in Medical Chart: Patient's medications documented in chart Measure #226: Tobacco Use: Screen & Cessation Intervention: Pt not a tobacco user Measure #111: Pneumonia Vaccination: Pneumococcal vaccine administered or previously received Measure #47: Advance Care Plan: Advance care planning discussed & documented, pt chose/unable to give Measure #412: Opioid Treatment Agreement: No documentation of signed opioid treatment agreement Measure #408: Opioid Therapy Follow-up Evaluation: Patient had NO f/u eval minimum every 3 months during opioid therapy Measure #317: Preventitive Care & Scrn High Bld Press & F/U: Normal blood pressure, f/u not required Measure #128: Body Mass Index (BMI) Screening & Follow-up: BMI documented ABOVE normal parameters - f/u documented Measure #131: Pain Assessment & Follow-up: Pain positive & plan documented, Follow-up PRN Measure #431: Unhealthy Alcohol Use Preventative Care & Scrn: Patient not identified as an unhealthy alcohol user PQRS Narrative: Smoking Status Former smoker Pain Intensity [Lower Back] 4 Scale Used Numeric (1 - 10) Hx Alcohol Use (MH) No Home Medications: Ambulatory Orders Atorvastatin Calcium [Lipitor] 40 mg PO HS 01/23/14 FLUoxetine HCL [PROzac] 60 mg PO DAILY 01/23/14 Irbesartan/Hydrochlorothiazide [Avalide 150-12.5 mg Tablet] 1 tab PO DAILY 01/23/14 QUEtiapine [SEROquel] 25 mg PO HS 01/23/14 Tiotropium [place] [Spiriva Respimat] 2 puff INHALATION DAILY 12/22/17 Cyanocobalamin (Vitamin B-12) [Vitamin B-12] 1,000 mcg PO DAILY 04/11/18 Albuterol Inhaler [Ventolin Hfa Inhaler] 1 - 2 puff INHALATION Q6HR PRN 11/13/18 Cholecalciferol (Vitamin D3) [Vitamin D3] 2,000 unit PO DAILY 11/13/18 Omeprazole 20 mg PO BID PRN 11/13/18 clonazePAM [KlonoPIN] 2 mg PO HS 11/13/18 Ibuprofen 600 mg PO Q6H PRN 12/24/18 Solifenacin Succinate [Vesicare] 10 mg PO DAILY 06/19/19 Metoprolol Succinate [Toprol XL] 25 mg PO DAILY 09/27/19 Controlled Substance Measures - Controlled Substance Measures Is patient prescribed a controlled substance at discharge?: No
== END | disposition home or self-care (01) ==
LOC: PNWHC3 13:06
PROVIDERS: ATTEND Anesthesiology
DX: M47.816 Spondylosis without myelopathy or radiculopathy, lumbar region (principal); M53.3 Sacrococcygeal disorders, not elsewhere classified; E66.9 Obesity, unspecified; Z79.891 Long term (current) use of opiate analgesic; Z79.899 Other long term (current) drug therapy
CPT/HCPCS: 99211

== ENCOUNTER → 2019-10-14 | Outpatient (CLI) | payer MEDICARE, OTHER ==
--- NOTE | 2019-10-14 08:38 | CT ---
EXAMINATION TYPE: CT sinus wo con DATE OF EXAM: 10/14/2019 COMPARISON: NONE HISTORY: Chronic fungal sinusitis per order. History of prior cancer right side of nose with congesti on and central falling perforation. CT DLP: 654.4 mGycm. Automated Exposure Control for Dose Reduction was Utilized. TECHNIQUE: CT scan of the sinuses is performed without contrast, axial images are obtained, coronal r eformatted images are also reviewed. FINDINGS: Right maxillary sinus masses completely filled with central hyperdense material and more pe ripheral prominent lobulated hypodense material. Sinus serrano show no suspicious bony destruction. The re is asymmetric posterolateral wall and anterior wall thickening. Remainder of the paranasal sinuses are clear. The ostiomeatal complex is patent on the left on coronal image 14. Visualized portion of mastoid air cells show no abnormal opacification. The globes are intact bilate rally. Mild vascular calcification of the distal internal carotid arteries bilaterally. Visualized p ortion of brain parenchyma shows diffuse cerebral atrophy and chronic small vessel ischemic change. IMPRESSION: Right maxillary sinus disease favoring severe eccentric mucosal thickening with central r etained secretions but presence of hyperdense material raises concern for fungal disease involvement.
== END | disposition home or self-care (01) ==
LOC: RADCTMAIN 07:20
PROVIDERS: ATTEND Otolaryngology
DX: J32.0 Chronic maxillary sinusitis (principal)
CPT/HCPCS: 70486

== ENCOUNTER → 2020-06-04 | Outpatient (CLI) | payer MEDICARE, OTHER ==
--- NOTE | 2020-06-04 12:14 | XR ---
EXAMINATION TYPE: XR chest 2V DATE OF EXAM: 06/04/2020 COMPARISON: 12/22/2017 TECHNIQUE: PA and lateral views submitted. HISTORY: Chest pain FINDINGS: The lungs are clear and there is no pneumothorax, pleural effusion, or focal pneumonia. Surgical cl ips overlying the left chest. Subsegmental changes are seen. IMPRESSION: 1. Basilar atelectasis favored over pneumonia due to poor inspiration..
--- NOTE | 2020-06-04 12:21 | XR ---
EXAMINATION TYPE: XR ribs bilateral DATE OF EXAM: 06/04/2020 COMPARISON: NONE HISTORY: Pain TECHNIQUE: 4 views of the ribs were obtained bilaterally with a total 8 views FINDINGS: Osseous structures intact. No acute displaced rib fracture. Surgical clips overlying the le ft chest. Lung rapp clear. Curvature of the spine. IMPRESSION: No acute displaced rib fracture.
== END | disposition home or self-care (01) ==
LOC: RADXRMAIN 11:11
PROVIDERS: ATTEND Internal Medicine
DX: J18.9 Pneumonia, unspecified organism (principal); J98.11 Atelectasis
CPT/HCPCS: 71046; 71110

== ENCOUNTER → 2021-11-18 | Outpatient (CLI) | payer MEDICARE, OTHER ==
--- NOTE | 2021-11-18 15:28 | XR ---
Right foot HISTORY: Pain 3 views of the right foot, no comparisons There is degenerative change, complete joint space loss at the metatarsophalangeal joint of the first digit, there is hypertrophic change, marginal spurring, subchondral sclerosis. Alignment is near-chaya tomic, the digits are flexed. No fracture or dislocation. There is a plantar calcaneal spur. Soft tis florian swelling is noted. Flake-like metallic densities present just lateral to the distal fifth metatar ab within the soft tissues, possible foreign body, indeterminate. IMPRESSION: Osteoarthritis first digit right foot. Additional findings above.
== END | disposition home or self-care (01) ==
LOC: RADXRMAIN 14:49
PROVIDERS: ATTEND Internal Medicine
DX: M19.071 Primary osteoarthritis, right ankle and foot (principal); M77.31 Calcaneal spur, right foot; M79.89 Other specified soft tissue disorders

== ENCOUNTER → 2021-12-02 | Outpatient (CLI) | payer MEDICARE, OTHER ==
[2021-12-02 08:18] VITALS: BP 110/74; PULSE 69; RESP 18; TEMP 97.9
--- NOTE | 2021-12-02 08:46 | P.PN ---
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 Patient states her lower back pain is 6 out of 10 in intensity, sharp, constant in the lower aspects of her lumbar spine with occasional radiation of pain down the bilateral lower extremities. She states she cannot stand greater than 5 minutes without pain. Patient states pain is also provoked by walking, bending or laying supine. Pain level escalates as high as 10 out of 10 in intensity with the aforementioned maneuvers. Pain is alleviated with medications, physical therapy in the past which is ineffective, chiropractic treatments in the past which were ineffective, use of a cane for ambulation, home exercise regimen occasionally as it is too painful for the patient, massage therapy which has been ineffective in the past and rest. Interventional pain procedures completed include CESIs Patient is currently on Robaxin, Buspar and [place] from Dr Arroyo. Patient denies any side effects of the medication(s), denies excessive drowsiness or sleepiness, denies suicidal ideation and reports that the current pain medication is helping to control the pain and improve activities of daily living. Patient denies any motor or sensory deficits. Patient denies any fever or night sweats, denies any change in the bowel movements or urination. Physical Examination: -Constitutional: Cooperative. Not in acute distress . -HEENT: Neck is supple. No lymphadenopathy. No thyromegaly. Normal thyroid size. Eyes: No ptosis , no icterus, no photophobia. ENT: No auditory deficits. Normal oropharynx. No Thrush. - Respiratory: Chest clear to auscultations bilaterally. No wheezing. No rhonchi. - Cardiovascular: Regular rate and rhythm. S1 / S2 , no S3 , no S4. - Gastrointestinal: Abdomen soft no tenderness. Bowel sounds positive in all four quadrants. No organomegaly. - Genitourinary: Deferred. - Neurologic: Cranial nerve II to XII intact. No focal neurological deficits. - Psychatric: Alert & oriented x 3. Matching mood & appropriate affect. Judgment and insight intact. - Lymphatic: No Lymphadenopathy. - Musculoskeletal: Cervical spine: Muscle bulk/ tone/ strength in the bilateral upper extremities normal. Facet loading test cervical area positive. Lumbar spine: Motor bulk/ tone/ strength lower extremities , thigh and legs : 5/5 Deep tendon reflexes : Normal Knee Jerk. Normal Ankle Jerk . Vertebral body tenderness to palpation over L4, L5 Lumbar Facet Loading Test positive Straight Leg Raise: positive at 30 degrees right side/ left side Gaenslen's Test positive Sacral spine : Severe tenderness over the Sacroiliac joint: right side / left side Range of motion: Flexion of the lumbar spine <60 degrees Range of motion: Extension of the lumbar spine <20 degrees Gaenslen's Test positive Em test: positive right side / left side Imaging: MRI from 10/29/18 reviewed. Assessment and plan: Chronic low back pain secondary to lumbar degenerative disc disease, spondylolisthesis, disc bulges, spinal stenosis lumbar spondylosis with facet arthropathy without myelopathy Recommendation of URSZULA L4-L5 #1. May need a series of injections, up to 3 within a six-month period, to reach optimal pain relief. Risks, benefits of procedure discussed and patient verbalized understanding. Denies anticoagulants use. Denies medical history diabetes mellitus. All patient questions answered MAPS reviewed and it was appropriate. I have spent 31 minutes on patient care today. Dr Burger was available by phone for the evaluation of this patient. The time was used to review the medical records including relevant urine studies and Prescription history (MAPs), review of the available imaging, evaluation and examination of the patient, coordination of care with the medical staff and if applicable referring physicians, as well as creation of the medical record Objective - Vital Signs Vital signs: Vital Signs Temp 97.9 F 12/02/21 07:46 Pulse 69 12/02/21 07:46 Resp 18 12/02/21 07:46 BP 110/74 12/02/21 07:46 Pulse Ox 95 12/02/21 07:46 Intake & Output 12/01/21 12/02/21 12/02/21 18:59 06:59 18:59 Weight 109.316 kg PQRS Measure Charge Sheet Mode of Arrival: Ambulatory, Cane - Pain Location Lower Back Non-Pharmacological Interventions: Chiropractic Treatment, Inactivity, Massage, Physical Therapy, Position/Reposition, Sitting Pharmacological Interventions: Block, Epidural, PRN Medication PQRS Narrative: Smoking Status Former smoker Blood Pressure 110/74 Pain Intensity [Lower Back] 6 Scale Used Numeric (1 - 10) Hx Alcohol Use (MH) No Home Medications: Ambulatory Orders Atorvastatin Calcium [Lipitor] 40 mg PO HS 01/23/14 FLUoxetine HCL [PROzac] 60 mg PO DAILY 01/23/14 Irbesartan/Hydrochlorothiazide [Avalide 150-12.5 mg Tablet] 1 tab PO DAILY 01/23/14 QUEtiapine [SEROquel] 25 mg PO HS 01/23/14 Tiotropium [place] [Spiriva Respimat] 2 puff INHALATION DAILY 12/22/17 Cyanocobalamin (Vitamin B-12) [Vitamin B-12] 1,000 mcg PO DAILY 04/11/18 Albuterol Inhaler (Mhu) [Ventolin Hfa Inhaler] 1 - 2 puff INHALATION Q6HR PRN 11/13/18 Cholecalciferol (Vitamin D3) [Vitamin D3] 2,000 unit PO DAILY 11/13/18 Omeprazole 20 mg PO BID PRN 11/13/18 clonazePAM [KlonoPIN] 2 mg PO HS 11/13/18 Ibuprofen 600 mg PO Q6H PRN 12/24/18 Solifenacin Succinate [Vesicare] 10 mg PO DAILY 06/19/19 Metoprolol Succinate [Toprol XL] 25 mg PO DAILY 09/27/19 busPIRone HCL [Buspar] 7.5 mg PO 12/02/21 methocarbamoL [Robaxin] 750 PO Q12HR 12/02/21
== END ==
LOC: PNWHC3 07:40
PROVIDERS: ATTEND Specialist
DX: G89.29 Other chronic pain (principal); M51.36 Other intervertebral disc degeneration, lumbar region; M43.16 Spondylolisthesis, lumbar region; M51.26 Other intervertebral disc displacement, lumbar region; M48.061 Spinal stenosis, lumbar region without neurogenic claudication; M47.816 Spondylosis without myelopathy or radiculopathy, lumbar region; Z87.891 Personal history of nicotine dependence; Z88.1 Allergy status to other antibiotic agents; Z88.5 Allergy status to narcotic agent; Z91.048 Other nonmedicinal substance allergy status
CPT/HCPCS: 99211

== ENCOUNTER → 2022-03-18 | Outpatient (CLI) | payer MEDICARE, OTHER ==
[~2022-03-18] MED LIST changes: -LACTATED RINGERS 1,000 ML IV SCH; +REGADENOSON 0.4 MG/5 ML SYRINGE IV PRN
--- NOTE | 2022-03-18 11:31 | CA ---
Lexiscan Nuclear Stress Test Report Name: Winnie Ibarra Exam Date: 03/18/2022 10:18 Exam Location: [place] Stress Ht (in): 62 Wt (lb): 240 BSA: 2.07 Ordering Phys: Sherice Arroyo MD Referring Phys: Cruz, Technologist: Gerson Thayer Age: 72 Gender: F : 1950 Procedure CPT: Indications: Z01.810 Pre surgical ICD-10 Codes: Patient History: Hypertsnsion and high cholesterol, Pre surgery Medications: Meds past 24 hrs: Pretest Chest Pain: STRESS TEST Lexiscan Protocol Exercise Duration (min:sec): 02:[address] Depressions (mm): Angina Score: Quinonez Score: Resting HR (bpm): 60 Peak HR (bpm): 80 Resting BP (mmHg): 135 / 55 Peak BP (mmHg): 180 / 79 MPHR: 146 Target HR: 124 % MPHR: 55 METS: 1.0 Total Dose: Peak Dose: Atropine: Double Product: 47018 BP Response: Stress Termination: Infustion complete Stress Symptoms: No chest pain or symptoms Stress Summary: ECG ANALYSIS Resting ECG: Stress ECG: CONCLUSIONS Lexiscan Cardiolite stress test Normal baseline heart rate and blood pressure Heart rate and blood pressure remained stable throughout the infusion No ECG evidence for ischemia No arrhythmias Nuclear part of the stress test will be reported separately Dr. Cabrera Camara MD (Electronically Signed) Final Date: 18 March 2022 11:30
--- NOTE | 2022-03-18 14:13 | NM ---
EXAMINATION TYPE: NM stress lexiscan cardiolite DATE OF EXAM: 03/18/2022 COMPARISON: 05/29/2014 HISTORY: Chest pain TECHNIQUE: After the intravenous administration of 9.36 mCi Tc 99m Sestamibi - Cardiolite resting SP ECT images acquired 50 minutes post injection. The patient received 0.4mg Lexiscan, 25.9 mCi Tc 99m Sestamibi - Stress images obtained [address] injection FINDINGS: Review of stress and rest SPECT images demonstrates area of stress-induced reversibility involving th e lateral and anteroapical myocardium.. Gated analysis shows normal wall motion with an estimated le ft ventricular ejection fraction of 75 %. Report called to referring clinician at 1408 p.m. 03/18/2022 IMPRESSION: 1. Exam positive for stress-induced reversible ischemia involving the apical anterior and lateral gwen cardium.
== END | disposition home or self-care (01) ==
LOC: RADNMMAIN 08:21
PROVIDERS: ATTEND Internal Medicine
DX: Z01.810 Encounter for preprocedural cardiovascular examination (principal); R07.9 Chest pain, unspecified
CPT/HCPCS: 93017; 78452; A9500; J2785

== ENCOUNTER 2022-03-31 07:17 | Day surgery (SDC) | payer MEDICARE, OTHER ==
[~2022-03-31 07:17] MED LIST changes: +ALPRAZolam 0.25 MG TAB PO PRN; +ALPRAZolam 0.5 MG TAB PO PRN; +ASPIRIN 325 MG TAB PO STA; +ATORVASTATIN 80 MG TAB PO STA; +HEPARIN SODIUM,PORCINE 10,000 UNIT in SODIUM CHLORIDE 0.9% 1,000 ML IRRIGATION PRN; +HEPARIN SODIUM,PORCINE 2,500 UNIT in SODIUM CHLORIDE 0.9% 250 ML IRRIGATION PRN; +NITROGLYCERIN SL TABS 0.4 MG TAB SUBLINGUAL PRN; -REGADENOSON 0.4 MG/5 ML SYRINGE IV PRN; +SODIUM CHLORIDE 0.9% 1,000 ML in EMPTY BAG 1 BAG IV SCH
[2022-03-31 08:09] LABS: Basophils # (A) 0.1 k/uL (0-0.2); Basophils % (A) 1 %; Eosinophils # (A) 0.2 k/uL (0-0.7); Eosinophils % (A) 3 %; HCT 41.2 % (34.0-46.0); HGB 13.5 gm/dL (11.4-16.0); Lymphocytes # (A) 1.5 k/uL (1.0-4.8); Lymphocytes % (A) 19 %; MCH 33.9 pg (25.0-35.0); MCHC 32.7 g/dL (31.0-37.0); MCV 103.6 fL (80.0-100.0); Macrocytosis Slight; Mean Platelet Volume 8.5; Monocytes # (A) 0.4 k/uL (0-1.0); Monocytes % (A) 6 %; Neutrophils # (A) 5.3 k/uL (1.3-7.7); Neutrophils % (A) 70 %; Platelet Count 225 k/uL (150-450); RBC 3.97 m/uL (3.80-5.40); RDW 12.7 % (11.5-15.5); WBC 7.6 k/uL (3.8-10.6)
[2022-03-31 08:16] VITALS: TEMP 97
[2022-03-31 08:23] LABS: African American GFR (CKD) >90 (>60 ml/min/1.73 sqM); Anion Gap 6 mmol/L; Blood Urea Nitrogen 23 mg/dL (7-17); Calcium 10.1 mg/dL (8.4-10.2); Carbon Dioxide 25 mmol/L (22-30); Chloride 107 mmol/L (98-107); Glucose 110 mg/dL (74-99); Non-African American GFR(CKD) 81 (>60 ml/min/1.73 sqM); Sodium 138 mmol/L (137-145)
[2022-03-31 08:34] LABS: Potassium 4.6 mmol/L (3.5-5.1)
[2022-03-31] MEDS ORDERED: VERAPAMIL 2.5 MG/ML 2 ML AMP ONE (08:57)
[2022-03-31] MEDS ORDERED: HEPARIN SODIUM 1,000 UN/ML (10ML VL) ONE ×2 (09:20→10:11)
[2022-03-31] MEDS ORDERED: fentaNYL (PF) 50 MCG/ML 2 ML AMP ONE (09:20)
[2022-03-31] MEDS ORDERED: fentaNYL (PF) 50 MCG/ML 2 ML AMP IV ONE (09:30)
[2022-03-31] MEDS ORDERED: MIDAZOLAM 2 MG/2 ML VIAL IV ONE (09:32)
[2022-03-31] MEDS ORDERED: LIDOCAINE 1% INJ 10MG/ML (30 ML VIAL-PF) SQ ONE (09:33)
[2022-03-31] MEDS: LIDOCAINE 1% INJ 10MG/ML (30 ML VIAL-PF) SQ ONE ×2 (09:33→10:07)
[2022-03-31] MEDS ORDERED: VERAPAMIL SYRINGE (5 MG/10 ML) INTRAARTER ONE (09:37)
[2022-03-31] MEDS ORDERED: HEPARIN SODIUM 1,000 UN/ML (10ML VL) IV ONE (10:13)
[2022-03-31 10:14] LABS: O2 Sat Blood Gas 73.4 %
[2022-03-31 10:16] LABS: O2 Sat Blood Gas 93.9 %
[2022-03-31] MEDS ORDERED: IOPAMIDOL-370 125ML BTL INJ ONE (10:21)
[2022-03-31] MEDS ORDERED: RX INFO: IV CONTRAST WAS GIVEN 1 EACH MISC MISCELLANE PRN (10:33)
[2022-03-31] MEDS ORDERED: PANTOPRAZOLE 40 MG TABLET PO PRN (10:34)
[2022-03-31] MEDS ORDERED: SODIUM CHLORIDE 0.9% 1,000 ML IV SCH (10:45)
--- NOTE | 2022-03-31 10:46 | P.CARDCATH ---
Date of Procedure: 03/31/22 Description of Procedure: Cardiac Catheterization: The patient is a 72-year-old female with known history of hypertension was scheduled to undergo orthopedic surgery. She has been complaining of progressive dyspnea on exertion and peripheral edema. Her MPI showed evidence of stress-induced ischemia. Recommendations were made regarding cardiac catheterization, the risks and the complications were discussed with the patient who is in full understanding and agreement. Procedure Description: Patient was brought to label stamper in fasting semi-sedated state after receiving Fentanyl and Benadryl achieiving moderate conscious sedated state. Using Xylocaine Anesthesia and Seldinger technique, a 6-Wallisian sheath was introduced in the right radial artery . The venous catheter in the right cephalic vein was exchanged to a 6-Wallisian sheath. Right heart catheterization was performed using Hooven-Ame catheter. Subsequently attempts to advance a catheter in the right radial artery were unsuccessful because of a tight radial loop. At that time using Xylocaine anesthesia an the Seldinger a 6-Wallisian sheath was introduced in the right femoral artery. Right heart catheterization was performed using a Hooven-Ame catheter, multiple samples and pressures were obtained. Subsequently, selective coronary angiog verena was performed using a 6-Wallisian 4 bend Pebbles catheter. Multiple views of the coronary artery including hemiaxial views were obtained. The 6-Wallisian Pigtail catheter was used to cross the aortic valve and LVEDP was calculated. Following that, catheter and sheath were removed. Hemostasis was obtained with deployment of TR band . There was no immediate complication. Patient was returned to room in stable condition. Of note, the patient received a total of 5000 units of intravenous heparin as well as intra-arterial verapamil. There was no immediate complications. Findings: Fluoroscopy: Calcification involving the LAD were noted Left main: This is a short sized vessel bifurcating into left circumflex and LAD, left main has no high-grade stenosis. LAD: This is a large size vessel, reaching to the apex, giving rise to a large Diagonal Branch. The Proximal LAD Has 10-20% Plaque,Rest of the Vessel Has No High-Grade Stenosis Left circumflex: This is a nondominant vessel, giving rise to a large Obtuse marginal branch, left circumflex has no high-grade stenosis. RCA: This is a dominant vessel, large in caliber, bifurcating, the RCA has 10- 20% plaque in the midsegment. Left ventriculogram not performed Hemodynamics: Cardiac output by thermal 5.2 L/m pulmonary Reports pressure A wave of 20 V wave of 21 with a mean of 20 mmHg, pulmonary artery systolic pressure 34 with a diastolic of 10 and the mean of 20 mmHg, right ventricular systolic pressure 34, end-diastolic 10 mmHg, right atrium A wave of 10 V wave of 10 with mean of 6 mmHg, there was no gradient across the aortic valve, LVEDP 15- 18 mmHg. Conclusion: 1. Mild obstructive disease involving the LAD and RCA 2. Calcified LAD 3. Right dominance Recommendations: I have recommended to continue medical therapy with aggressive coronary risk modifications. The findings and recommendations were discussed with the patient and her family, they wanted full understanding and agreed. Duration of sedation 44 minutes.
[2022-03-31 15:50] VITALS: PULSE 62
[2022-03-31 15:52] VITALS: BP 91/51; RESP 16
[2022-03-31] MEDS ORDERED: QUEtiapine 25 MG TAB PO SCH (21:00)
[2022-03-31] MEDS ORDERED: ATORVASTATIN 40 MG TAB PO SCH (21:00)
[2022-03-31] MEDS ORDERED: methocarbamoL 750 MG TAB PO SCH (21:00)
[2022-03-31] MEDS ORDERED: SOLIFENACIN SUCCINATE 10 MG PO SCH (21:00)
[2022-04-01] MEDS ORDERED: hydroCHLOROthiazide 12.5 MG CAP PO SCH (09:00)
[2022-04-01] MEDS ORDERED: LOSARTAN 50 MG TAB PO SCH (09:00)
[2022-04-01] MEDS ORDERED: METOPROLOL SUCCINATE (ER) 25 MG TAB.ER.24H PO SCH (09:00)
[2022-04-01] MEDS ORDERED: ASPIRIN 81 MG PO SCH (09:00)
== END 2022-03-31 15:30 | disposition home or self-care (01) ==
LOC: CATHCVL 07:17
PROVIDERS: ATTEND Internal Medicine Interventional Cardiology
DX: I25.10 Atherosclerotic heart disease of native coronary artery without angina pectoris (principal); I25.84 Coronary atherosclerosis due to calcified coronary lesion; R94.39 Abnormal result of other cardiovascular function study; I10 Essential (primary) hypertension; E78.00 Pure hypercholesterolemia, unspecified; E78.2 Mixed hyperlipidemia; M19.90 Unspecified osteoarthritis, unspecified site; Z20.822 Contact with and (suspected) exposure to COVID-19; Z87.891 Personal history of nicotine dependence; Z85.3 Personal history of malignant neoplasm of breast; Z90.710 Acquired absence of both cervix and uterus; Z98.890 Other specified postprocedural states; Z82.49 Family history of ischemic heart disease and other diseases of the circulatory system; Z79.82 Long term (current) use of aspirin; Z79.899 Other long term (current) drug therapy; Z88.6 Allergy status to analgesic agent; Z88.5 Allergy status to narcotic agent
CPT/HCPCS: 93460; 80048; 85018; 82810; 85025; 87635; C1760; C1769 ×3; C1894 ×2; C1751; J2250; J2001; J3010; J1644; Q9967

== ENCOUNTER 2022-06-03 08:51 | Day surgery (SDC) | payer MEDICARE, OTHER ==
[2022-06-01 15:40] VITALS: BMI 43.7
[~2022-06-03 08:51] MED LIST changes: -ALPRAZolam 0.25 MG TAB PO PRN; -ALPRAZolam 0.5 MG TAB PO PRN; -ASPIRIN 325 MG TAB PO STA; -ATORVASTATIN 80 MG TAB PO STA; +DEXAMETHASONE SOD PHOSPHATE 4 MG/ML 1 ML VIAL IV ONE; -HEPARIN SODIUM,PORCINE 10,000 UNIT in SODIUM CHLORIDE 0.9% 1,000 ML IRRIGATION PRN; -HEPARIN SODIUM,PORCINE 2,500 UNIT in SODIUM CHLORIDE 0.9% 250 ML IRRIGATION PRN; +HYDROmorphone 0.5 MG/0.5 ML SYRINGE IVP PRN; +LACTATED RINGERS 1,000 ML IV SCH; -NITROGLYCERIN SL TABS 0.4 MG TAB SUBLINGUAL PRN; +ONDANSETRON 4 MG/2 ML VIAL IVP ONE; -SODIUM CHLORIDE 0.9% 1,000 ML in EMPTY BAG 1 BAG IV SCH
[2022-06-03 09:26] VITALS: TEMP 97.5
[2022-06-03] MEDS ORDERED: MIDAZOLAM 2 MG/2 ML VIAL IVP ONE (10:15)
[2022-06-03] MEDS ORDERED: DEXAMETHASONE SOD PHOSPHATE 4 MG/ML 1 ML VIAL ONE (11:23)
[2022-06-03] MEDS ORDERED: SUCCINYLCHOLINE CHLORIDE 200 MG/10 ML VIAL IV ONE (11:23)
[2022-06-03] MEDS ORDERED: PROPOFOL 10 MG/ML 20 ML VIAL IV ONE (11:23)
[2022-06-03] MEDS ORDERED: fentaNYL (PF) 50 MCG/ML 2 ML AMP ONE (11:23)
[2022-06-03] MEDS ORDERED: HYDROmorphone (PF) 1 MG/ML ONE (11:23)
[2022-06-03] MEDS ORDERED: ROPIVACAINE 5 MG/ML 30 ML VIAL ONE (11:23)
[2022-06-03] MEDS ORDERED: LIDOCAINE 2% INJ 20 MG/ML (2 ML VIAL) ONE (11:23)
--- NOTE | 2022-06-03 11:33 | P.ANPRN ---
Procedure Note - Anesthesia - Nerve Block Performed Right Adductor Canal Single Time Out Performed: Yes (1015) Date of Procedure: 06/03/22 Procedure Start Time: 10:15 Procedure Stop Time: : Location of Patient: PreOp Indication: Acute Post-Operative Pain, Dx/Pain Location (Right ankle), Requested by Surgeon Specifically requested for management of pain by DrNae: Deion Frank Sedation Type: Sedate with meaningful contact maintained Preparation: Sterile Prep Position: Supine Catheter: None Needle Types: Pajunk Needle Gauge: 21 (100 mm) Ultrasound used to visualize needle placement: Yes Ultrasound used to observe medication spread: Yes Injectate: 0.5% Ropivacaine (see comment for volume) (20 cc + 2 mg of decadron) Blood Aspirated: No Pain Paresthesia on Injection Noted: No Resistance on Injection: Normal Image Stored and Saved: Yes Events: Uneventful and Well Tolerated Right Popliteal Single Time Out Performed: Yes Date of Procedure: 06/03/22 Procedure Start Time: Procedure Stop Time: :29 Location of Patient: PreOp Indication: Acute Post-Operative Pain, Dx/Pain Location (Right ankle), Requested by Surgeon Specifically requested for management of pain by Dr.: Deion Frank Sedation Type: Sedate with meaningful contact maintained Preparation: Sterile Prep Position: Left Lateral Catheter: None Needle Types: Pajunk Needle Gauge: 21 (100 mm) Ultrasound used to visualize needle placement: Yes Ultrasound used to observe medication spread: Yes Injectate: 0.5% Ropivacaine (see comment for volume) (20 ml + 2mg of decadron) Blood Aspirated: No Pain Paresthesia on Injection Noted: No Resistance on Injection: Normal Image Stored and Saved: Yes Events: Uneventful and Well Tolerated
[2022-06-03] MEDS ORDERED: LACTATED RINGERS 1,000 ML IV ONE (13:04)
[2022-06-03] MEDS ORDERED: oxyCODONE-APAP 5-325MG 1 EACH TAB ONE (14:34)
[2022-06-03 15:19] VITALS: BP 103/66; PULSE 85; RESP 17
--- NOTE | 2022-06-06 21:28 | OP ---
OPERATIVE REPORT PREOPERATIVE DIAGNOSES: 1. Ruptured posterior tibial tendon, right foot. 2. Right foot deformity. 3. Equinus, right ankle. POSTOPERATIVE DIAGNOSES: 1. Ruptured posterior tibial tendon, right foot. 2. Right foot deformity. 3. Equinus, right ankle. PROCEDURES PERFORMED: 1. Flexor digitorum longus tendon transfer, right ankle and foot. 2. Ferreira calcaneal osteotomy, right foot. 3. Gastroc recession, right leg. ANESTHESIA: General with preoperative nerve block. HEMOSTASIS: Right thigh tourniquet at 250 mmHg. ESTIMATED BLOOD LOSS: Minimal. MATERIALS: One 12 mm x 20 mm x 20 mm Ferreira calcaneal graft, 20 mm compression staple, 5.5 mm interference screw. INJECTABLES: None. COMPLICATIONS: None. DESCRIPTION OF PROCEDURE: Prior to the patient being brought to the operating room, Anesthesia administered nerve block in the right lower extremity. Then, the patient was brought to the operating room, placed on the operating table in supine position. Time-out was taken to confirm the correct patient, identifiers, correct laterality of surgery, and correct procedure. When all staff in the room were in agreement with the time-out, the patient was induced and placed under general anesthesia. A well-padded tourniquet was placed on the right thigh and a bump underneath the right hip to internally rotate the right foot. The right foot was prepped and draped in usual manner. The foot was exsanguinated and tourniquet inflated to 250 mmHg. Attention directed over to the lateral aspect of the hind foot, where a linear incision was made over the calcaneocuboid joint, deepened down to the subcutaneous tissue, careful to identify avoid retracting neurovascular structures and cauterize any bleeding vessels. Blunt dissection was carried down through the tissue overlying the peroneal tendons. The tissue just superior to the peroneal tendons was incised and the peroneal tendons were lifted off the lateral surface of the calcaneus in 1 flap and retracted plantarly. Calcaneocuboid joint was identified, and then an area measured 10 to 12 mm proximal in the calcaneal anterior process and then that area was marked. A sagittal saw was used to perform the osteotomy through the anterior process of calcaneus from lateral to medial. Once the osteotomy was completed, the osteotome was inserted to separate the anterior fragment. Guidewires for the distractor were then placed on either side of the osteotomy and then the distractor was applied and opened until there was adequate compression of the forefoot and rearfoot relationship. Various sizers were used to determine the appropriate sized graft, and it was determined that a 12 mm x 20 mm x 20 mm graft was appropriate. The graft was inserted and impacted down to proper depth. Then, the distractor and pins were removed. The drill holes for 20 mm compression cesar were then made on either side of the osteotomy and placed the bone graft. The cesar inserted and released allowing the cesar to compress and stabilize the fragment. The wound was then irrigated thoroughly with antibiotic saline. Deep closure was done with 2-0 Vicryl, subcutaneous closed with 4-0 Monocryl. Skin was closed with cesar. At that point, the bump from the right hip was removed and then the foot was externally rotates. Then, attention was turned to the posterior midline aspect of the calf. The gastroc muscle belly was identified, and then an incision was made medial to the midline 4 to 5 mm distal to the inferior surface of the gastroc muscle. The incision was deepened to the subcutaneous tissue, careful to identify and avoid retracting neurovascular structures and cauterize any bleeding vessels. Blunt dissection was continued down to the deep fascia. It was penetrated with blunt instrumentation so fascia could be divided and avoid any trauma to the sural nerve and vascular structures. Once completed, blunt finger dissection was done down to the level of the fascia overlying the aponeurosis. Then, all the neurovascular structures retracted. The soft tissue over the aponeurosis was incised and finger dissection was used to separate the overlying tissue from the aponeurosis. A transverse incision was made through the aponeurosis with the ankle was dorsiflexed, 1.5 to 2 cm gap. The wound was thoroughly irrigated with antibiotic saline. Subcutaneous closure done with 4-0 Monocryl. Skin closure done with cesar. Then, attention was directed over to the medial aspect of the hindfoot, where an incision was made from an area just posterior to the medial malleolus and extending just past the navicular tuberosity along the course of the posterior tibial tendon. The incision was deepened down to subcutaneous layer. Careful to identify and avoid retracting neurovascular structures and cauterize any bleeding vessels. Blunt dissection was then carried down to the level of the tendon sheath of the posterior tibial tendon. The sheath was incised along the length of the skin incision. The tendon was visualized. It was extremely thickened and frayed with visual degeneration of the tendon itself, so the decision was made to perform the tendon transfer, resect the posterior tibial tendon. The proximal aspect of the incision about the flexor digitorum longus and posterior tibial tendon were done together in a [id number] anastomosis and then once that was completed, the posterior tibial tendon was resected just distal to the anastomosis. Then reflected and removed from the navicular insertion and removed from surgical field. Then, the tendon sheath for the flexor digitorum longus was opened from just distal to the anastomosis and into the mid foot near the knot of Raul. The tendon was resected at the knot of Raul and delivered in the surgical field. Then, a whipstitch was placed at the distal end of the tendon. The drill hole for the placement of the anchor in the navicular was then performed under direct fluoroscopic visualization to avoid the talonavicular as well as the calcaneal navicular joints. Once drill hole was completed, it was then reamed to a 6.5 mm and then the distal end of the tendon was fed through the loop in the 5.5 mm anchor design inserter and then with the tendon held in physiologic tension and the foot in neutral position, the anchor with the tendon were inserted into the drill hole. The tendon buried deep into the drill hole and then the anchor was advanced to lock the tendon in place. Once it was completed, it was tested for strength and there was no evidence of pullout and there was physiologic tension on the tendon. The wound was then irrigated thoroughly with antibiotic saline. The tissue over the tendon was then repaired with 0 Vicryl. Subcutaneous closure done with 4-0 Monocryl. Skin closure done with cesar. An Arthrex JumpStart dressing was placed over all the incisions and a bulky dry dressing was applied to the right leg and foot. The tourniquet was released and capillary refill returned to all digits on the right foot. Then, the patient was placed in a well-padded, well-molded plaster posterior mold/sugar- tong splint. The foot was held in neutral ankle position in slight inversion as it dried. Once dried, anesthesia was reversed and the patient was taken to recovery with vital signs stable. MMODL / IJN: [id number] / [facility]ush[facility]o
== END 2022-06-03 15:30 | disposition home or self-care (01) ==
LOC: OR 08:51
PROVIDERS: ATTEND Podiatrist
DX: M66.371 Spontaneous rupture of flexor tendons, right ankle and foot (principal); S93.611D Sprain of tarsal ligament of right foot, subsequent encounter; M21.6X1 Other acquired deformities of right foot; M19.071 Primary osteoarthritis, right ankle and foot; G89.18 Other acute postprocedural pain; M79.674 Pain in right toe(s); I10 Essential (primary) hypertension; E78.5 Hyperlipidemia, unspecified; I48.91 Unspecified atrial fibrillation; J44.9 Chronic obstructive pulmonary disease, unspecified; F17.210 Nicotine dependence, cigarettes, uncomplicated; K21.9 Gastro-esophageal reflux disease without esophagitis; R06.02 Shortness of breath; F32.9 Major depressive disorder, single episode, unspecified; Z88.1 Allergy status to other antibiotic agents; Z88.5 Allergy status to narcotic agent; Z90.710 Acquired absence of both cervix and uterus; Z41.1 Encounter for cosmetic surgery; Z98.890 Other specified postprocedural states; Z79.899 Other long term (current) drug therapy; Z87.19 Personal history of other diseases of the digestive system; Z86.69 Personal history of other diseases of the nervous system and sense organs; Z85.3 Personal history of malignant neoplasm of breast; Z95.9 Presence of cardiac and vascular implant and graft, unspecified; Z82.49 Family history of ischemic heart disease and other diseases of the circulatory system; X58.XXXD Exposure to other specified factors, subsequent encounter
CPT/HCPCS: 27691; 28300; 27687; 64447; 64445; 76942; C1713; J2250; J0330; J1100; J0690; J2405; J3010; J1170 ×2; J2795; J2704; J2001

== ENCOUNTER 2022-06-05 02:27 | Observation (INO) | payer MEDICARE, OTHER ==
--- NOTE | 2022-06-05 02:31 | ED ---
Recheck HPI - General Stated Complaint: Post-op leg pain Time Seen by Provider: 06/05/22 02:30 Source: RN notes reviewed, old records reviewed, Caregiver Mode of arrival: EMS Limitations: no limitations - History of Present Illness Initial Comments: This is a 72-year-old female DF for evaluation. Patient presents for right foot surgery. Significant pain from right foot surgery. Patient has recent tendon replacement. Patient complaining of severe.. Pain is the right foot and ankle. She states she is mostly nonambulatory home she may have been walking on the ankle more than expected. MD Complaint: wound re-check, medication refill request -: hour(s) Returns Today for: rabies shot, persistent/worsening pain related to initial visit Context: planned re-check, ran out of medication Treatments Prior to Arrival: Given Pain Meds on - Related Data Home Medications Medication Instructions Recorded Confirmed Atorvastatin Calcium [Lipitor] 40 mg PO QAM 01/23/14 06/01/22 FLUoxetine HCL [PROzac] 60 mg PO QAM 01/23/14 06/01/22 Irbesartan/Hydrochlorothiazide 1 tab PO QAM 01/23/14 06/01/22 [Avalide 150-12.5 mg Tablet] QUEtiapine [SEROquel] 25 mg PO HS 01/23/14 06/01/22 Tiotropium [place] [Spiriva 2 puff INHALATION DAILY PRN 12/22/17 06/03/22 Respimat] Cyanocobalamin (Vitamin B-12) 1,000 mcg PO DAILY 04/11/18 06/01/22 [Vitamin B-12] Cholecalciferol (Vitamin D3) 2,000 unit PO DAILY 11/13/18 06/01/22 [Vitamin D3] Omeprazole 20 mg PO BID PRN 11/13/18 06/01/22 clonazePAM [KlonoPIN] 2 mg PO HS 11/13/18 06/01/22 Solifenacin Succinate [Vesicare] 10 mg PO HS 06/19/19 06/01/22 Metoprolol Succinate [Toprol XL] 25 mg PO QAM 09/27/19 06/03/22 busPIRone HCL [Buspar] 15 mg PO BID PRN 12/02/21 06/03/22 methocarbamoL [Robaxin] 1,500 mg PO BID 12/02/21 06/01/22 Aspirin 81 mg PO DAILY 03/29/22 06/01/22 Previous Rx's Medication Instructions Recorded oxyCODONE-APAP 5-325MG [Percocet 1 tab PO Q6HR PRN 3 Days #30 tab 06/03/22 5-325 mg] Allergies Allergy/AdvReac Type Severity Reaction Status Date / Time erythromycin base Allergy Rash/Hives Verified 06/03/22 09:23 [Erythromycin Base] hydrocodone bitartrate Allergy Hallucinati Verified 06/03/22 09:23 [From Lortab] ons procaine [From Novocain] Allergy passed out Verified 06/03/22 09:23 years ago after an injection in finger adhesive AdvReac EVEN PAPER Verified 06/03/22 09:23 TAPE CAUSES BLISTERS IF LEFT ON. morphine AdvReac Hallucinati Verified 06/03/22 09:23 ons Review of Systems ROS Statement: Those systems with pertinent positive or pertinent negative responses have been documented in the HPI. ROS Other: All systems not noted in ROS Statement are negative. Past Medical History Past Medical History: Atrial Fibrillation, Cancer, COPD, GERD/Reflux, Hyperl ipidemia, Hypertension, Memory Impairment, Osteoarthritis (OA), Pneumonia, Skin Disorder Additional Past Medical History / Comment(s): Basal cell skin cancer on her face status post radiation and skin graft, left breast cancer, chronic back pain, migraines, IBS, diverticulitis, urinary incontinence-wears depends when goes anywhere, states she tripped and fell at the [facility] office prior to [place], states recent MRI of brain- states she is getting forgetful and is falling more, supposed to have right foot surgery but was cancelled due to recent stress test History of Any Multi-Drug Resistant Organisms: None Reported Past Surgical History: Appendectomy, Breast Surgery, Heart Catheterization, Hysterectomy, Joint Replacement, Orthopedic Surgery, Tonsillectomy Additional Past Surgical History / Comment(s): margarita Cataracts removed w/lens implant, skin graft to her face for basal cell cancer, pain clinic procedures, "esophageal wrap", left breast biopsy and left breast lumpectomy, margarita knee replacement Past Anesthesia/Blood Transfusion Reactions: Previous Problems w/ Anesthesia Additional Past Anesthesia/Blood Transfusion Reaction / Comment(s): hallucinations. pt told drop in BP during surgery caused from taking her avalide am of procedure-told she should not take when getting anesthesia Additional Past Alcohol Use History / Comment(s): 1 09/19 PPD for 53 years and quit in 2013. - Past Family History Father Additional Family Medical History / Comment(s): Father at age 80 with previous history of myocardial infarction age 79 and status post AICD. Patient has 6 uncles on her father's side that had myocardial infarctions. Brother(s) Family Medical History: No Reported History Additional Family Medical History / Comment(s): . Daughter(s) Family Medical History: No Reported History Additional Family Medical History / Comment(s): . Mother Family Medical History: Deep Vein Thrombosis (DVT) Additional Family Medical History / Comment(s): . General Exam - General Exam Comments Initial Comments: Splint is taken off, wound is assess its clean dry and intact with no signs of infection General appearance: alert, in no apparent distress Head exam: Present: atraumatic, normocephalic, normal inspection Eye exam: Present: normal appearance, PERRL, EOMI. Absent: scleral icterus, conjunctival injection, periorbital swelling ENT exam: Present: normal exam, mucous membranes moist Neck exam: Present: normal inspection. Absent: tenderness, meningismus, lymphadenopathy Respiratory exam: Present: normal lung sounds bilaterally. Absent: respiratory distress, wheezes, rales, rhonchi, stridor Cardiovascular Exam: Present: regular rate, normal rhythm, normal heart sounds. Absent: systolic murmur, diastolic murmur, rubs, gallop, clicks GI/Abdominal exam: Present: soft, normal bowel sounds. Absent: distended, tenderness, guarding, rebound, rigid Extremities exam: Present: normal inspection, full ROM, normal capillary refill. Absent: tenderness, pedal edema, joint swelling, calf tenderness Back exam: Present: normal inspection Neurological exam: Present: alert, oriented X3, CN II-XII intact Psychiatric exam: Present: normal affect, normal mood Skin exam: Present: warm, dry, intact, normal color. Absent: rash Course Vital Signs 06/05/22 02:47 Temperature 98 F Pulse Rate 59 L Respiratory 18 Rate Blood Pressure 140/65 O2 Sat by Pulse 98 Oximetry - Reevaluation(s) Reevaluation #1: 06/05/22 04:13 medical records reviewed Reevaluation #2: 06/05/22 04:14 patient's pain is controlled Reevaluation #3: 06/05/22 04:14 Patient informed results and questions answered - Consultations Consultation #1: spoke with Dr. Arroyo who will admit this patient Consultation #2: Also spoke with OA will see this patient consult for Dr. Monika HUGHES Medical Decision Making - Medical Decision Making 72 female DF admitted for further evaluation management, pain control. Postoperative right foot - Radiology Data Radiology results: report reviewed (X-ray right ankle is negative for acute disease), image reviewed Disposition Clinical Impression: Postoperative pain Disposition: ADMITTED IP TO THIS [facility] Condition: Good Is patient prescribed a controlled substance at d/c from ED?: No Referrals: Sherice Arroyo MD [Primary Care Provider] - 1-2 days Time of Disposition: 04:15
[2022-06-05] MEDS ORDERED: SODIUM CHLORIDE 0.9% 1,000 ML IV STA (03:04)
[2022-06-05] MEDS ORDERED: HYDROmorphone 1 MG/ML 1 ML SYRINGE IVP STA (03:05)
--- NOTE | 2022-06-05 03:31 | XR ---
EXAMINATION TYPE: XR ankle complete RT DATE OF EXAM: 06/05/2022 COMPARISON: NONE HISTORY: Ankle pain TECHNIQUE: 3 views FINDINGS: Ankle mortise is anatomic. There is soft tissue swelling around the ankle. There are skin s taples on the medial and lateral aspect of the hindfoot and also on the posterior aspect of the mid t ibia. There is some plantar calcaneal spurring. There is apparent fusion surgery of the subtalar join t. IMPRESSION: Previous surgery. Soft tissue swelling around the ankle. No acute bony abnormality seen.
[2022-06-05] MEDS ORDERED: ONDANSETRON 4 MG/2 ML VIAL IVP PRN (04:11)
[2022-06-05] MEDS ORDERED: HYDROmorphone 1 MG/ML 1 ML SYRINGE IVP PRN (04:11)
[2022-06-05] MEDS ORDERED: NALOXONE 0.4 MG/ML 1 ML VIAL IV PRN (04:11)
[2022-06-05] MEDS ORDERED: ACETAMINOPHEN TAB 325 MG TAB PO PRN (05:28)
[2022-06-05 07:10] LABS: Basophils # (A) 0.1 k/uL (0-0.2); Basophils % (A) 1 %; Eosinophils # (A) 0.2 k/uL (0-0.7); Eosinophils % (A) 2 %; HCT 38.5 % (34.0-46.0); HGB 12.2 gm/dL (11.4-16.0); Lymphocytes # (A) 1.8 k/uL (1.0-4.8); Lymphocytes % (A) 23 %; MCH 33.3 pg (25.0-35.0); MCHC 31.8 g/dL (31.0-37.0); MCV 104.8 fL (80.0-100.0); Macrocytosis Slight; Mean Platelet Volume 8.7; Monocytes # (A) 0.5 k/uL (0-1.0); Monocytes % (A) 7 %; Neutrophils % (A) 66 %; Platelet Count 173 k/uL (150-450); RBC 3.67 m/uL (3.80-5.40); RDW 12.9 % (11.5-15.5); WBC 7.6 k/uL (3.8-10.6)
[2022-06-05 07:18] LABS: INR 0.8 (<1.2); Partial Thromboplastin Time 22.4 sec (22.0-30.0); Prothrombin Time 9.5 sec (9.0-12.0)
[2022-06-05] MEDS: SODIUM CHLORIDE 0.9% 1,000 ML IV SCH ×2 (08:05→14:10)
[2022-06-05 08:09] LABS: ALT 11 U/L (4-34); AST 21 U/L (14-36); African American GFR (CKD) >90 (>60 ml/min/1.73 sqM); Albumin 3.5 g/dL (3.5-5.0); Alkaline Phosphatase 84 U/L (38-126); Anion Gap 10 mmol/L; Blood Urea Nitrogen 15 mg/dL (7-17); Calcium 9.5 mg/dL (8.4-10.2); Carbon Dioxide 24 mmol/L (22-30); Chloride 104 mmol/L (98-107); Glucose 96 mg/dL (74-99); Magnesium 1.9 mg/dL (1.6-2.3); Non-African American GFR(CKD) 89 (>60 ml/min/1.73 sqM); Phosphorus 2.6 mg/dL (2.5-4.5); Potassium 3.7 mmol/L (3.5-5.1); Sodium 138 mmol/L (137-145); Total Bilirubin 0.7 mg/dL (0.2-1.3); Total Protein 5.9 g/dL (6.3-8.2)
--- NOTE | 2022-06-05 09:32 | P.CNOR ---
History of Present Illness - [facility] Consult date: 06/05/22 History of present illness: The patient is very pleasant 72-year-old female who underwent elective foot surgery with my partner Dr. Frank this past Monday. She was discharged home but due to increasing pain and difficulty caring for herself at home presented to the emergency department last night. Her splint was taken down by the emergency department. She was admitted to internal medicine for pain control and discharge planning. This morning I evaluated her. She has moderate pain in her foot, but it is controlled. She has no other complaints. Past Medical History Past Medical History: Atrial Fibrillation, Cancer, COPD, GERD/Reflux, Hyperlipidemia, Hypertension, Memory Impairment, Osteoarthritis (OA), Pneumonia, Skin Disorder Additional Past Medical History / Comment(s): Basal cell skin cancer on her face status post radiation and skin graft, left breast cancer, chronic back pain, migraines, IBS, diverticulitis, urinary incontinence-wears depends when goes anywhere, states she tripped and fell at the [facility] office prior to kain, states recent MRI of brain- states she is getting forgetful and is falling more, supposed to have right foot surgery but was cancelled due to recent stress test History of Any Multi-Drug Resistant Organisms: None Reported Past Surgical History: Appendectomy, Breast Surgery, Heart Catheterization, Hysterectomy, Joint Replacement, Orthopedic Surgery, Tonsillectomy Additional Past Surgical History / Comment(s): margarita Cataracts removed w/lens implant, skin graft to her face for basal cell cancer, pain clinic procedures, "esophageal wrap", left breast biopsy and left breast lumpectomy, margarita knee replacement Past Anesthesia/Blood Transfusion Reactions: Previous Problems w/ Anesthesia Additional Past Anesthesia/Blood Transfusion Reaction / Comm: hallucinations. pt told drop in BP during surgery caused from taking her avalide am of procedure- told she should not take when getting anesthesia Additional Past Alcohol Use History / Comment(s): 1 1/2 PPD for 53 years and qu it in 2012. - Past Family History Father Additional Family Medical History / Comment(s): Father at age 80 with previous history of myocardial infarction age 79 and status post AICD. Patient has 6 uncles on her father's side that had myocardial infarctions. Brother(s) Family Medical History: No Reported History Additional Family Medical History / Comment(s): . Daughter(s) Family Medical History: No Reported History Additional Family Medical History / Comment(s): . Mother Family Medical History: Deep Vein Thrombosis (DVT) Additional Family Medical History / Comment(s): . Medications and Allergies Home Medications Medication Instructions Recorded Confirmed Type Atorvastatin Calcium [Lipitor] 40 mg PO QAM 01/23/14 06/01/22 History FLUoxetine HCL [PROzac] 60 mg PO QAM 01/23/14 06/01/22 History Irbesartan/Hydrochlorothiazide 1 tab PO QAM 01/23/14 06/01/22 History [Avalide 150-12.5 mg Tablet] QUEtiapine [SEROquel] 25 mg PO HS 01/23/14 06/01/22 History Tiotropium [place] [Spiriva 2 puff INHALATION DAILY PRN 12/22/17 06/03/22 History Respimat] Cyanocobalamin (Vitamin B-12) 1,000 mcg PO DAILY 04/11/18 06/01/22 History [Vitamin B-12] Cholecalciferol (Vitamin D3) 2,000 unit PO DAILY 11/13/18 06/01/22 History [Vitamin D3] Omeprazole 20 mg PO BID PRN 11/13/18 06/01/22 History clonazePAM [KlonoPIN] 2 mg PO HS 11/13/18 06/01/22 History Solifenacin Succinate [Vesicare] 10 mg PO HS 06/19/19 06/01/22 History Metoprolol Succinate [Toprol XL] 25 mg PO QAM 09/27/19 06/03/22 History busPIRone HCL [Buspar] 15 mg PO BID PRN 12/02/21 06/03/22 History methocarbamoL [Robaxin] 1,500 mg PO BID 12/02/21 06/01/22 History Aspirin 81 mg PO DAILY 03/29/22 06/01/22 History oxyCODONE-APAP 5-325MG [Percocet 1 tab PO Q6HR PRN 3 Days #30 tab 06/03/22 Rx 5-325 mg] Allergies Allergy/AdvReac Type Severity Reaction Status Date / Time erythromycin base Allergy Rash/Hives Verified 06/03/22 09:23 [Erythromycin Base] hydrocodone bitartrate Allergy Hallucinati Verified 06/03/22 09:23 [From Lortab] ons procaine [From Novocain] Allergy passed out Verified 06/03/22 09:23 years ago after an injection in finger adhesive AdvReac EVEN PAPER Verified 06/03/22 09:23 TAPE CAUSES BLISTERS IF LEFT ON. morphine AdvReac Hallucinati Verified 06/03/22 09:23 ons Physical Examination The patient is resting comfortably on her ER gurney. She is alert and easily able to answer questions. A focused examination of the right lower extremity was conducted. On inspection there are multiple incisions over her calf and foot. Freddy are in place. There is moderate swelling but no active drainage. Her thigh is soft and compressible. She has no pain with passive range of motion of the toes. Sensation is intact to light touch globally throughout the foot. She is actively able to plantarflex and dorsiflex her toes. The tips of her toes are warm and well-perfused brisk capillary refill Results - Labs Labs: Abnormal Lab Results - Last 24 Hours (Table) 06/05/22 06/05/22 Range/Units 07:04 07:04 RBC 3.67 L (3.80-5.40) m/uL MCV 104.8 H (80.0-100.0) fL C-Reactive Protein 3.0 H (<1.0) mg/dL Total Protein 5.9 L (6.3-8.2) g/dL H & H 06/05/22 Range/Units 07:04 Hgb 12.2 (11.4-16.0) gm/dL Hct 38.5 (34.0-46.0) % Coagulation 06/05/22 Range/Units 07:04 INR 0.8 (<1.2) Result Diagrams: 06/05/22 07:04 06/05/22 07:04 Assessment and Plan Assessment: Postoperative day #2 status post right flatfoot reconstruction with gastrocnemius recession, FDL tendon transfer, and Felipe's lateral column lengthening. Intractable postoperative pain, improving Plan: The patient is going to be admitted to internal medicine for postoperative pain control and discharge planning. A new splint was applied to the right lower extremity. The patient should remain nonweightbearing on the right leg. She'll be evaluated by Dr. Frank tomorrow for further instructions. Procedure: Nonadherent gauze and sterile 4 x 4's were placed over all of her surgical incisions. A well-padded bulky Sam splint was applied with the ankle in neutral. Time with Patient: Greater than 30
[2022-06-05] MEDS ORDERED: PANTOPRAZOLE 40 MG TABLET PO PRN (10:52)
[2022-06-05] MEDS ORDERED: oxyCODONE-APAP 5-325MG 1 EACH TAB PO PRN (10:52)
[2022-06-05] MEDS ORDERED: busPIRone HCl 5 MG TAB PO PRN (10:52)
--- NOTE | 2022-06-05 10:56 | P.HPIM ---
History of Present Illness H&P Date: 06/12/22 Chief Complaint: pain control post flat foot surgery HISTORY OF PRESENT ILLNESS: This is a 72-year-old female with a previous medical history significant for hypertension and hypertensive cardiovascular disease, hyperlipidemia, history of breast cancer status post left lumpectomy back in 2014, COPD, history of atrial fibrillation many years ago, history of nonob structive CAD with 20% stenosis of the proximal LAD and mid RCA as well status post recent heart catheterization, irritable bowel syndrome with diarrhea, history of diverticulosis, history of anxiety disorder, panic attack, patient underwent surgery for a right flat foot with gastrocnemius recession, FDL transfer along with Felipe's lateral column legthening, patient was doing fine up until today she was having hard time getting out of the bed into the wheelchair to go to the bathroom and she was in tremendous amount of pain, she was prescribed Percocet that she never took she ended up coming to the ER for evaluation the took the splint by emergency room physician and the wrap as well, patient was seen in the emergency department by Dr. Franklin from orthopedic surgery, who placed her another splint waiting for Dr. Perea, see her tomorrow morning patient did receive Dilaudid for pain control as well as hydrocodone, and she will be admitted to the hospital for evaluation by physical therapy since the patient is not able to bear any weight on her right lower extremity and asked to be nonweightbearing for the next 7 weeks. REVIEW OF SYSTEMS: Constitutional: No documented fever, no chills, no night sweats. No weight change. No weakness, fatigue or lethargy. No daytime sleepiness. HEENT: No headache. No blurred vision or double vision, no loss of vision. No loss of Hearing, no ringing in the ears, no dizziness. No nasal drainage or congestion. No epistaxis. No sore throat. Lungs: No shortness of breath, no cough, no sputum production. No wheezing. Reports dyspnea with activity. Cardiovascular: No chest pain, no lower extremity edema. No palpitations. No paroxysmal nocturnal dyspnea. No orthopnea. No lightheadedness or dizziness. No syncopal episodes. Abdominal: Reports no abdominal pain. No nausea, vomiting. No diarrhea. No constipation. No bloody or tarry stools reports loss of appetite. Genitourinary: No dysuria, increased frequency, urgency. No urinary retention. Musculoskeletal: No myalgias. No muscle weakness, positive for gait dysfunction, right foot pain, low back pain and neck pain. Integumentary: No wounds, no lesions. No rash or pruritus. No unusual bruising. No change in hair or nails. Neurologic: No aphasia. No facial droop. No change in mentation. No head injury. No headache. No paralysis. No paresthesia. Psychiatric: No depression. positive for anxiety. No mood swings. Endocrine: obese PAST MEDICAL HISTORY: Hypertension and hypertensive cardiovascular disease Hyperlipidemia. Nonobstructive CAD. Anxiety disorder Diverticulosis. Panic attack. Basal cell cancer status post skin graft. Irritable bowel syndrome with diarrhea. Osteoarthritis. History of atrial fibrillation. COPD. Chronic low back pain Obese. Possible obstructive sleep apnea. Left breast cancer status post lumpectomy GERD. Detrusor instability. PAST SURGICAL HISTORY: Appendectomy. Bilateral cataract surgery. Hysterectomy. Bilateral total knee arthroplasties. Left lumpectomy. Basal cell cancer from the right side of the face post skin graft placement. Colonoscopy. Epidural injection. Maira fundoplication. SOCIAL HISTORY: Patient used to smoke about a pack and a half a day she smoked for about 53 years and she quit in 2012. Patient denies any alcohol ingestion, she denies any drug use or abuse. FAMILY HISTORY: Mother is 94-year-old with history of dementia and had history of DVT, father at age of 80 from myocardial infarction and cardiomyopathy post-AICD, patient has 3 brothers who are healthy and one sister is healthy as well, patient has 3 sons and 1 daughter no major medical problems. PHYSICAL EXAMINATION: General: 72-year-old female laying down in bed in no distress. HEENT: Head is atraumatic, normocephalic, pupils were equal round reactive to light and recommendation, extraocular muscle movement were intact, sclera nonicteric, conjunctivae were pale, mucous membranes of the mouth are somewhat dry. Neck: Supple, no JVP, normal carotid upstroke bilaterally, no lymphadenopathy. Chest: Decreased breath sounds at the bases, few rhonchi, no expiratory wheezes, no chest wall tenderness, no intercostal retractions. Heart: First heart sound is normal, second heart sounds normal, there is systolic ejection murmur 2/6 located in the left sternal border. Abdomen: Soft, nontender, nondistended, positive bowel sounds. No hepatosplenomegaly. Extremities: Right lower extremity is in a bulky splint, left lower extremity with no edema, no calf tenderness, dorsalis pedis +2. Neurologic examination: Patient is awake alert and oriented X3, cranial nerves II-12 appear grossly intact, muscle power were 5 out of 5 in upper extremities and 5 out of 5 in bilateral lower extremities, deep tendon reflexes normal bilaterally. ASSESSMENT AND PLAN: 1. Postoperative day #2 status post flat foot reconstructive surgery that was done by Dr. Frank. Continue current pain management, patient was seen and evaluated by orthopedic surgery she was placed in a bulky splint, she will be seen by Dr. Frank tomorrow morning. Physical therapy evaluation to see the patient is able to maneuver herself at home otherwise she may need to go for subacute rehabilitation. 2. Hypertension and hypertensive cardiovascular disease. Continue patient on metoprolol ER 25 mg orally once every day as well as Avalide 150/12.5 mg orally once every day monitor the patient blood pressure very closely. 3. Hyperlipidemia. Continue patient on atorvastatin 40 mg orally once every day monitor the patient's lipid panel, keep LDL 55-70. 4. Nonobstructive coronary artery disease status post recent heart catheterization that showed 20% stenosis of the proximal LAD and the mid RCA. Continue patient on aspirin 81 mg once every day, metoprolol succinate ER 25 mg at bedtime and atorvastatin 40 mg once every day continue with aggressive risk factors modification. 5. Remote history of atrial fibrillation currently in sinus rhythm. Continue metoprolol ER 25 mg orally once every day as well as aspirin 81 mg once every day. 6. Anxiety disorder with panic attack. Continue patient on fluoxetine 60 mg once every day as well as BuSpar 15 mg orally twice every day. 7. Irritable bowel syndrome with diarrhea. Appears to be stable at this time. 8. Overactive bladder currently has the purewick system in place continue with Vesicare 10 mg once every day. 9. History of COPD. Continue patient on Spiriva 1 capsule inhalation once every day. 10. GERD status post Maira fundoplication. Continue patient on omeprazole 20 mg once every day. 11. Chronic low back pain secondary to spondylosis of the lumbar spine status post multiple epidural injections as well as radio frequency ablation. Continue current pain management with Robaxin 1500 mg orally twice every day. 12. History of breast cancer status post left lumpectomy. Patient could not tolerate aromatase inhibitors due to significant side effects. 13. DVT Prophylaxis. Continue patient on Lovenox 40 mg subcutaneously every 24 hours. 14. GI prophylaxis. Continue patient on omeprazole 20 mg once every day or its substitute. 15. Physical therapy evaluation . Patient is high risk for injury and falls. 16. metal casting trades worker consultation for discharge planning. 17. Patient is full code. 18. Disposition still pending. Past Medical History Past Medical History: Atrial Fibrillation, Cancer, COPD, GERD/Reflux, Hyperlipidemia, Hypertension, Memory Impairment, Osteoarthritis (OA), Pneumonia, Skin Disorder Additional Past Medical History / Comment(s): Basal cell skin cancer on her face status post radiation and skin graft, left breast cancer, chronic back pain, migraines, IBS, diverticulitis, urinary incontinence-wears depends when goes anywhere, states she tripped and fell at the drs office prior to kain, states recent MRI of brain- states she is getting forgetful and is falling more, supposed to have right foot surgery but was cancelled due to recent stress test History of Any Multi-Drug Resistant Organisms: None Reported Past Surgical History: Appendectomy, Breast Surgery, Heart Catheterization, Hysterectomy, Joint Replacement, Orthopedic Surgery, Tonsillectomy Additional Past Surgical History / Comment(s): margarita Cataracts removed w/lens implant, skin graft to her face for basal cell cancer, pain clinic procedures, "esophageal wrap", left breast biopsy and left breast lumpectomy, margarita knee replacement Past Anesthesia/Blood Transfusion Reactions: Previous Problems w/ Anesthesia Additional Past Anesthesia/Blood Transfusion Reaction / Comment(s): hallucinations. pt told drop in BP during surgery caused from taking her avalide am of procedure-told she should not take when getting anesthesia Additional Past Alcohol Use History / Comment(s): 1 /2 PPD for 53 years and quit in 2012. - Past Family History Father Additional Family Medical History / Comment(s): Father at age 80 with previous history of myocardial infarction age 79 and status post AICD. Patient has 6 uncles on her father's side that had myocardial infarctions. Brother(s) Family Medical History: No Reported History Additional Family Medical History / Comment(s): . Daughter(s) Family Medical History: No Reported History Additional Family Medical History / Comment(s): . Mother Family Medical History: Deep Vein Thrombosis (DVT) Additional Family Medical History / Comment(s): . Medications and Allergies Home Medications Medication Instructions Recorded Confirmed Type Atorvastatin Calcium [Lipitor] 40 mg PO QAM 01/23/14 06/01/22 History FLUoxetine HCL [PROzac] 60 mg PO QAM 01/23/14 06/01/22 History Irbesartan/Hydrochlorothiazide 1 tab PO QAM 01/23/14 06/01/22 History [Avalide 150-12.5 mg Tablet] QUEtiapine [SEROquel] 25 mg PO HS 01/23/14 06/01/22 History Tiotropium [place] [Spiriva 2 puff INHALATION DAILY PRN 12/22/17 06/03/22 History Respimat] Cyanocobalamin (Vitamin B-12) 1,000 mcg PO DAILY 04/11/18 06/01/22 History [Vitamin B-12] Cholecalciferol (Vitamin D3) 2,000 unit PO DAILY 11/13/18 06/01/22 History [Vitamin D3] Omeprazole 20 mg PO BID PRN 11/13/18 06/01/22 History clonazePAM [KlonoPIN] 2 mg PO HS 11/13/18 06/01/22 History Solifenacin Succinate [Vesicare] 10 mg PO HS 06/19/19 06/01/22 History Metoprolol Succinate [Toprol XL] 25 mg PO QAM 09/27/19 06/03/22 History busPIRone HCL [Buspar] 15 mg PO BID PRN 12/02/21 06/03/22 History methocarbamoL [Robaxin] 1,500 mg PO BID 12/02/21 06/01/22 History Aspirin 81 mg PO DAILY 03/29/22 06/01/22 History oxyCODONE-APAP 5-325MG [Percocet 1 tab PO Q6HR PRN 3 Days #30 tab 06/03/22 Rx 5-325 mg] Allergies Allergy/AdvReac Type Severity Reaction Status Date / Time erythromycin base Allergy Rash/Hives Verified 06/03/22 09:23 [Erythromycin Base] hydrocodone bitartrate Allergy Hallucinati Verified 06/03/22 09:23 [From Lortab] ons procaine [From Novocain] Allergy passed out Verified 06/03/22 09:23 years ago after an injection in finger adhesive AdvReac EVEN PAPER Verified 06/03/22 09:23 TAPE CAUSES BLISTERS IF LEFT ON. morphine AdvReac Hallucinati Verified 06/03/22 09:23 ons Physical Exam Vitals: Vital Signs Temp Pulse Resp BP Pulse Ox 06/05/22 08:01 73 18 124/75 95 06/05/22 02:47 98 F 59 L 18 140/65 98 Intake and Output 06/04/22 06/05/22 06/05/22 22:59 06:59 14:59 Other: Weight 107.048 kg Results CBC & Chem 7: 06/05/22 07:04 06/05/22 07:04 Labs: Abnormal Lab Results - Last 24 Hours (Table) 06/05/22 06/05/22 Range/Units 07:04 07:04 RBC 3.67 L (3.80-5.40) m/uL MCV 104.8 H (80.0-100.0) fL C-Reactive Protein 3.0 H (<1.0) mg/dL Total Protein 5.9 L (6.3-8.2) g/dL
[2022-06-05] MEDS: ATORVASTATIN 40 MG TAB PO SCH (11:47)
[2022-06-05] MEDS: FLUoxetine HCL 20 MG CAP PO SCH (11:47)
[2022-06-05] MEDS: hydroCHLOROthiazide 12.5 MG CAP PO SCH (11:48)
[2022-06-05] MEDS: LOSARTAN 50 MG TAB PO SCH (11:48)
[2022-06-05] MEDS: METOPROLOL SUCCINATE (ER) 25 MG TAB.ER.24H PO SCH (11:48)
[2022-06-05 16:26] LABS: Appearance,Urine Clear (Clear); Bilirubin,Urine Negative (Negative); Blood,Urine Negative (Negative); Color,Urine Yellow; Glucose,Urine (UA) Negative (Negative); Ketones,Urine Negative (Negative); Leukocyte Esterase,Urine Negative (Negative); Nitrite,Urine Negative (Negative); Protein,Urine Negative (Negative); Specific Gravity,Urine 1.016 (1.001-1.035); Urobilinogen,Urine <2.0 mg/dL (<2.0)
[2022-06-05] MEDS: methocarbamoL 750 MG TAB PO SCH (20:05)
[2022-06-05] MEDS: ASPIRIN 81 MG PO SCH (20:05)
[2022-06-05] MEDS ORDERED: QUEtiapine 25 MG TAB PO SCH (21:00)
[2022-06-05] MEDS ORDERED: TROSPIUM CHLORIDE 20 MG TABLET PO SCH (21:00)
[2022-06-05] MEDS ORDERED: clonazePAM 1 MG TAB PO SCH (21:00)
[2022-06-06] MEDS: SODIUM CHLORIDE 0.9% 1,000 ML IV SCH (02:46)
[2022-06-06] MEDS: IPRATROPIUM 0.5 MG/2.5 ML NEBU INHALATION PRN ×2 (07:26→11:09)
[2022-06-06] MEDS ORDERED: ENOXAPARIN 40 MG/0.4 ML SYRINGE SQ SCH (09:00)
[2022-06-06] MEDS ORDERED: CHOLECALCIFEROL 25 MCG (1000 IU) TABLET PO SCH (09:00)
[2022-06-06] MEDS ORDERED: CYANOCOBALAMIN 500 MCG TAB PO SCH (09:00)
[2022-06-06 09:30] LABS: African American GFR (CKD) 106.5 (60.0-200.0); Albumin 3.2 g/dL (3.8-4.9); Albumin/Globulin Ratio 1.63 (1.60-3.17); Anion Gap 4.4 mmol/L (10.00-18.00); BUN/Creat Ratio 21.82 Ratio (12.00-20.00); Blood Urea Nitrogen 12.2 mg/dL (9.0-27.0); Calcium 9.3 mg/dL (8.7-10.3); Carbon Dioxide 27.8 mmol/L (20.0-27.5); Non-African American GFR(CKD) 91.9 (60.0-200.0); Potassium 3.7 mmol/L (3.5-5.5); Total Bilirubin 0.5 mg/dL (0.30-1.20); Total Protein 5.1 g/dL (6.2-8.2)
[2022-06-06 09:39] LABS: Basophils # (A) 0.03 X 10*3/uL (0.00-0.10); Basophils % (A) 0.5 %; Eosinophils # (A) 0.18 X 10*3/uL (0.04-0.35); Eosinophils % (A) 2.9 %; HCT 35.1 % (37.2-46.3); HGB 11.8 g/dL (12.0-15.0); Immature Grans, Automated 0.2 %; Lymphocytes # (A) 1.93 X 10*3/uL (0.90-5.00); Lymphocytes % (A) 30.7 %; MCH 34.3 pg (27.0-32.0); MCHC 33.6 g/dL (32.0-37.0); Mean Platelet Volume 11.6 fL (9.5-12.2); Monocytes % (A) 9.5 %; NRBC Per 100 WBC 0 /100 WBCS (0.0-0.0); Neutrophils # (A) 3.54 X 10*3/uL (1.80-7.70); Neutrophils % (A) 56.2 %; Platelet Count 179 X 10*3/uL (140-440); RBC 3.44 X 10*6/uL (4.10-5.20); RDW 13.5 % (11.5-14.5); WBC 6.29 X 10*3/uL (4.50-10.00)
[2022-06-06] MEDS: methocarbamoL 750 MG TAB PO SCH (09:44)
[2022-06-06] MEDS: ASPIRIN 81 MG PO SCH (09:45)
[2022-06-06] MEDS: LOSARTAN 50 MG TAB PO SCH (09:45)
[2022-06-06] MEDS: METOPROLOL SUCCINATE (ER) 25 MG TAB.ER.24H PO SCH (09:45)
[2022-06-06] MEDS: hydroCHLOROthiazide 12.5 MG CAP PO SCH (09:45)
[2022-06-06] MEDS: FLUoxetine HCL 20 MG CAP PO SCH (09:45)
[2022-06-06] MEDS: ATORVASTATIN 40 MG TAB PO SCH (09:45)
--- NOTE | 2022-06-06 12:10 | P.DS ---
Providers Date of admission: 06/05/22 04:11 Expected date of discharge: 06/06/22 Attending physician: Sherice Arroyo Consults: 06/05/22 04:11 Consult Physician Routine Consulting Provider: Deion Frank Consult Reason/Comments: painConreol,known Do you want consulting provider notified?: Yes Primary care physician: Sherice Arroyo Hospital Course: HISTORY OF PRESENT ILLNESS: This is a 72-year-old female with a previous medical history significant for hypertension and hypertensive cardiovascular disease, hyperlipidemia, history of breast cancer status post left lumpectomy back in 2014, COPD, history of atrial fibrillation many years ago, history of nonobstructive CAD with 20% stenosis of the proximal LAD and mid RCA as well status post recent heart catheterization, irritable bowel syndrome with diarrhea, history of diverticulosis, history of anxiety disorder, panic attack, patient underwent surgery for a right flat foot with gastrocnemius recession, FDL transfer along with Felipe's lateral column legthening, patient was doing fine up until today she was having hard time getting out of the bed into the wheelchair to go to the bathroom and she was in tremendous amount of pain, she was prescribed Percocet that she never took she ended up coming to the ER for evaluation the took the splint by emergency room physician and the wrap as well, patient was seen in the emergency department by Dr. Franklin from orthopedic surgery, who placed her another splint waiting for Dr. Perea, see her tomorrow morning patient did receive Dilaudid for pain control as well as hydrocodone, and she will be admitted to the hospital for evaluation by physical therapy since the patient is not able to bear any weight on her right lower extremity and asked to be nonweightbearing for the next 7 weeks. 06/06: Patient has been seen by physical therapy with recommendations for subacute rehab. Patient has worked with social work and plan is for discharge to [facility]. Patient did develop urinary retention requiring Colmenares catheter placement this morning. We will plan to maintain and have this removed at the half-way at a later time. Patient remains nonweightbearing on the right leg. Nonadherent gauze and sterile 4 x 4's to be placed over her surgical incisions and well-padded bulky Sam splint was applied by surgery. Patient states that she has pain is in the ankle area but denies any at this time. She denies any nausea, vomiting, diarrhea. She has not had bowel movement since she arrived but does not have one daily. No cough or shortness of breath. Patient remains afebrile, heart rate 72, blood pressure 130/78, pulse ox 93% on room air. Repeat blood work reveals WBC 6.2, hemoglobin 11.8, platelet count 179. Sodium 141, potassium 3.7, chloride 109, CO2 27.8. BUN 12.2 and creatinine 0.6. Blood sugar 95. Liver function tests were normal. Urinalysis performed yesterday evening was negative for infection. Patient will be discharged to [facility] today in stable condition. DISCHARGE DIAGNOSES 1. Postoperative day #3 status post flat foot reconstructive surgery that was done by Dr. Frank. 2. Hypertension and hypertensive cardiovascular disease. 3. Hyperlipidemia. 4. Nonobstructive coronary artery disease status post recent heart catheterization that showed 20% stenosis of the proximal LAD and the mid RCA. 5. Remote history of paroxysmal atrial fibrillation currently in sinus rhythm. 6. Anxiety disorder with panic attack. 7. Irritable bowel syndrome with diarrhea. 8. Overactive bladder. 9. History of COPD. 10. GERD status post Maira fundoplication. 11. Chronic low back pain secondary to spondylosis of the lumbar spine status post multiple epidural injections as well as radio frequency ablation. 12. History of breast cancer status post left lumpectomy. 13. Urinary retention requiring Colmenares catheter placement. DISCHARGE PLAN Subacute rehab at [facility] Greater than 35 minutes was utilized and coordinating patient's discharge. Impression and plan of care have been directed as dictated by the signing physician. Teressa Saenz nurse practitioner acting as scribe for signing physician. Patient Condition at Discharge: Good Plan - Discharge Summary Discharge Rx Participant: No New Discharge Prescriptions: New Enoxaparin [Lovenox] 40 mg SQ DAILY each Acetaminophen Tab [Tylenol] 650 mg PO Q6HR PRN tab PRN Reason: Fever And/ Or Pain Continue QUEtiapine [SEROquel] 25 mg PO HS FLUoxetine HCL [PROzac] 60 mg PO DAILY Atorvastatin Calcium [Lipitor] 40 mg PO DAILY Irbesartan/Hydrochlorothiazide [Avalide 150-12.5 mg Tablet] 1 tab PO DAILY Tiotropium Mckinney [Spiriva Respimat] 2 puff INHALATION RT-DAILY PRN PRN Reason: Shortness Of Breath Cyanocobalamin (Vitamin B-12) [Vitamin B-12] 1,000 mcg PO DAILY clonazePAM [KlonoPIN] 2 mg PO HS Omeprazole 20 mg PO BID PRN PRN Reason: Heartburn Cholecalciferol (Vitamin D3) [Vitamin D3] 50 mcg PO DAILY Solifenacin Succinate [Vesicare] 10 mg PO HS Metoprolol Succinate [Toprol XL] 25 mg PO DAILY methocarbamoL [Robaxin-750] 1,500 mg PO BID busPIRone HCL [Buspar] 15 mg PO BID PRN PRN Reason: Anxiety Aspirin 81 mg PO DAILY oxyCODONE-APAP 5-325MG [Percocet 5-325 mg] 1 tab PO Q6HR PRN 3 Days #12 tab PRN Reason: Pain Discharge Medication List Atorvastatin Calcium [Lipitor] 40 mg PO DAILY 01/23/14 [History] FLUoxetine HCL [PROzac] 60 mg PO DAILY 01/23/14 [History] Irbesartan/Hydrochlorothiazide [Avalide 150-12.5 mg Tablet] 1 tab PO DAILY 01/23/14 [History] QUEtiapine [SEROquel] 25 mg PO HS 01/23/14 [History] Tiotropium Mckinney [Spiriva Respimat] 2 puff INHALATION RT-DAILY PRN 12/22/17 [History] Cyanocobalamin (Vitamin B-12) [Vitamin B-12] 1,000 mcg PO DAILY 04/11/18 [History] Cholecalciferol (Vitamin D3) [Vitamin D3] 50 mcg PO DAILY 11/13/18 [History] Omeprazole 20 mg PO BID PRN 11/13/18 [History] clonazePAM [KlonoPIN] 2 mg PO HS 11/13/18 [History] Solifenacin Succinate [Vesicare] 10 mg PO HS 06/19/19 [History] Metoprolol Succinate [Toprol XL] 25 mg PO DAILY 09/27/19 [History] busPIRone HCL [Buspar] 15 mg PO BID PRN 12/02/21 [History] methocarbamoL [Robaxin-750] 1,500 mg PO BID 12/02/21 [History] Aspirin 81 mg PO DAILY 03/29/22 [History] Acetaminophen Tab [Tylenol] 650 mg PO Q6HR PRN tab 06/06/22 [Rx] Enoxaparin [Lovenox] 40 mg SQ DAILY each 06/06/22 [Rx] oxyCODONE-APAP 5-325MG [Percocet 5-325 mg] 1 tab PO Q6HR PRN 3 Days #12 tab 06/06/22 [Rx] Follow up Appointment(s)/Referral(s): Sherice Arroyo MD [Primary Care Provider] - 1 Week (At [facility]) Deion Frank DPM [Doctor of Osteopathic Medicine] - 1 Week Discharge Disposition: TRANSFER TO SNF/ECF
[2022-06-06 14:19] VITALS: BP 118/75; PULSE 73; RESP 17; TEMP 97.4
== END 2022-06-06 16:23 ==
LOC: EC 02:27 → 6NMEDSUR 04:11
PROVIDERS: ADMIT Internal Medicine; ATTEND Internal Medicine
DX: G89.18 Other acute postprocedural pain (principal); M25.571 Pain in right ankle and joints of right foot; M21.41 Flat foot [pes planus] (acquired), right foot; R33.9 Retention of urine, unspecified; E66.9 Obesity, unspecified; Z68.41 Body mass index [BMI] 40.0-44.9, adult; E78.5 Hyperlipidemia, unspecified; I25.10 Atherosclerotic heart disease of native coronary artery without angina pectoris; I48.0 Paroxysmal atrial fibrillation; F41.9 Anxiety disorder, unspecified; F41.0 Panic disorder [episodic paroxysmal anxiety]; K58.0 Irritable bowel syndrome with diarrhea; N32.81 Overactive bladder; J44.9 Chronic obstructive pulmonary disease, unspecified; K21.9 Gastro-esophageal reflux disease without esophagitis; I11.9 Hypertensive heart disease without heart failure; M19.90 Unspecified osteoarthritis, unspecified site; R41.3 Other amnesia; K58.9 Irritable bowel syndrome, unspecified; K57.90 Diverticulosis of intestine, part unspecified, without perforation or abscess without bleeding; R32 Unspecified urinary incontinence; G43.909 Migraine, unspecified, not intractable, without status migrainosus; G89.29 Other chronic pain; M47.816 Spondylosis without myelopathy or radiculopathy, lumbar region; Z79.82 Long term (current) use of aspirin; Z79.899 Other long term (current) drug therapy; Z85.3 Personal history of malignant neoplasm of breast; Z88.1 Allergy status to other antibiotic agents; Z88.4 Allergy status to anesthetic agent; Z88.5 Allergy status to narcotic agent; Z91.048 Other nonmedicinal substance allergy status; Z87.01 Personal history of pneumonia (recurrent); Z85.828 Personal history of other malignant neoplasm of skin; Z92.3 Personal history of irradiation; Z90.49 Acquired absence of other specified parts of digestive tract; Z90.710 Acquired absence of both cervix and uterus; Z98.42 Cataract extraction status, left eye; Z98.41 Cataract extraction status, right eye; Z96.1 Presence of intraocular lens; Z96.653 Presence of artificial knee joint, bilateral; Z87.891 Personal history of nicotine dependence; Z91.81 History of falling; Z98.890 Other specified postprocedural states; Z82.49 Family history of ischemic heart disease and other diseases of the circulatory system
CPT/HCPCS: 51702; 96360; 96361 ×2; 96372; 99285; 94640 ×2; 93005; 97162; 97166; 83880; 80053 ×2; 83735; 84100; 84484; 85025 ×2; 85610; 85730; 86140; 81003; 87040; 73610; G0378 ×2; J1650

== ENCOUNTER → 2023-03-03 | Outpatient (CLI) | payer MEDICARE, OTHER ==
--- NOTE | 2023-03-03 15:32 | US ---
EXAMINATION TYPE: US venous doppler duplex LE DATE OF EXAM: 03/03/2023 9:21 AM COMPARISON: NONE CLINICAL INDICATION: Female, 73 years old with history of R600 LOCALIZED EDEMA; Patient states just h aving ankle surgery x 12 weeks. Calf pain. No redness or swelling. Not on blood thinners. SIDE PERFORMED: Bilateral TECHNIQUE: The lower extremity deep venous system is examined utilizing real time linear array sonog verena with graded compression, doppler sonography and color-flow sonography. VESSELS IMAGED: Common Femoral Vein Deep Femoral Vein Greater Saphenous Vein * Femoral Vein Popliteal Vein Small Saphenous Vein * Proximal Calf Veins (* superficial vessels) Right Leg: Negative for DVT Left Leg: Negative for DVT IMPRESSION: 1. Bilateral lower extremity ultrasound negative for deep venous thrombosis.
== END | disposition home or self-care (01) ==
LOC: RADUSWWP 08:51
PROVIDERS: ATTEND Internal Medicine
DX: R60.0 Localized edema (principal)
CPT/HCPCS: 93970

== ENCOUNTER 2023-08-23 07:31 | Inpatient (IN) | payer MEDICARE, OTHER ==
--- NOTE | 2023-08-23 08:24 | ED ---
General Adult HPI - General Chief complaint: Neuro Symptoms/Deficit Stated complaint: Left arm numbness Time Seen by Provider: 08/23/23 07:36 Source: patient Mode of arrival: wheelchair Limitations: no limitations - History of Present Illness Initial comments: Dictation was produced using [employer] dictation software. please excuse any grammatical, word or spelling errors. Chief Complaint: 73-year-old female with multiple comorbidities presents to the emergency department for left upper arm sensory deficit History of Present Illness: 73-year-old female she has multiple comorbidities. She states she woke up in the middle the night with pins and needle sensation in her left upper arm. States that initially it affected both arms. After an hour her right arm resolved. Patient states that she still having persistent symptoms in her left arm though much improved. She states she also does have an ache in her right arm. She has no history of cervical arthritis to her knowledge. Denies any other neurologic symptoms. The ROS documented in this emergency department record has been reviewed and confirmed by me. Those systems with pertinent positive or negative responses have been documented in the HPI. All other systems are other negative and/or noncontributory. - Related Data Home Medications Medication Instructions Recorded Confirmed Atorvastatin Calcium [Lipitor] 40 mg PO DAILY 01/23/14 08/23/23 FLUoxetine HCL [PROzac] 60 mg PO DAILY 01/23/14 08/23/23 Irbesartan/Hydrochlorothiazide 1 tab PO DAILY 01/23/14 08/23/23 [Avalide 150-12.5 mg Tablet] QUEtiapine [SEROquel] 25 mg PO HS 01/23/14 08/23/23 Omeprazole 20 mg PO DAILY PRN 11/13/18 08/23/23 Solifenacin Succinate [Vesicare] 10 mg PO HS 06/19/19 08/23/23 Metoprolol Succinate [Toprol XL] 25 mg PO DAILY 09/27/19 08/23/23 busPIRone HCL [Buspar] 15 mg PO BID PRN 12/02/21 08/23/23 Aspirin 81 mg PO ONCE PRN 03/29/22 08/23/23 Acetaminophen Tab [Tylenol Tab] 1,000 mg PO Q6H PRN 08/23/23 08/23/23 Clotrimazole/Betameth Cream 1 applic TOPICAL BID PRN 08/23/23 08/23/23 [Lotrisone] Nystatin 100,000 Unit/gm Powd 1 applic TOPICAL BID PRN 08/23/23 08/23/23 [Mycostatin Powder] clonazePAM [KlonoPIN] 2 mg PO HS 08/23/23 08/23/23 Allergies Allergy/AdvReac Type Severity Reaction Status Date / Time erythromycin base Allergy Rash/Hives Verified 08/23/23 08:53 [Erythromycin Base] adhesive AdvReac EVEN PAPER Verified 08/23/23 08:53 TAPE CAUSES BLISTERS IF LEFT ON. hydrocodone bitartrate AdvReac Hallucinati Verified 08/23/23 08:53 [From Lortab] ons morphine AdvReac Hallucinati Verified 08/23/23 08:53 ons procaine [From Novocain] AdvReac passed out Verified 08/23/23 08:53 years ago after an injection in finger Review of Systems ROS Statement: Those systems with pertinent positive or pertinent negative responses have been documented in the HPI. ROS Other: All systems not noted in ROS Statement are negative. Past Medical History Past Medical History: Atrial Fibrillation, Cancer, COPD, GERD/Reflux, Hyperlipidemia, Hypertension, Memory Impairment, Osteoarthritis (OA), Pneumonia, Skin Disorder Additional Past Medical History / Comment(s): Basal cell skin cancer on her face status post radiation and skin graft, left breast cancer, chronic back pain, migraines, IBS, diverticulitis, urinary incontinence-wears depends when goes anywhere, states she tripped and fell at the [facility] office prior to [place], states recent MRI of brain- states she is getting forgetful and is falling more, supposed to have right foot surgery but was cancelled due to recent stress test History of Any Multi-Drug Resistant Organisms: None Reported Past Surgical History: Appendectomy, Breast Surgery, Heart Catheterization, Hysterectomy, Joint Replacement, Orthopedic Surgery, Tonsillectomy Additional Past Surgical History / Comment(s): margarita Cataracts removed w/lens implant, skin graft to her face for basal cell cancer, pain clinic procedures, "esophageal wrap", left breast biopsy and left breast lumpectomy, margarita knee replacement. Tendon repair right foot 06/03/22 Past Anesthesia/Blood Transfusion Reactions: Previous Problems w/ Anesthesia Additional Past Anesthesia/Blood Transfusion Reaction / Comment(s): hallucinations. pt told drop in BP during surgery caused from taking her avalide am of procedure-told she should not take when getting anesthesia Past Psychological History: Anxiety, Depression Smoking Status: Former smoker Past Alcohol Use History: None Reported Past Drug Use History: None Reported - Past Family History Father Additional Family Medical History / Comment(s): Father at age 80 with previous history of myocardial infarction age 79 and status post AICD. Patient has 6 uncles on her father's side that had myocardial infarctions. Brother(s) Family Medical History: No Reported History Additional Family Medical History / Comment(s): . Daughter(s) Family Medical History: No Reported History Additional Family Medical History / Comment(s): . Mother Family Medical History: Deep Vein Thrombosis (DVT) Additional Family Medical History / Comment(s): . General Exam - General Exam Comments Initial Comments: PHYSICAL EXAM: General Impression: Alert and oriented x3, not in acute distress HEENT: Normocephalic atraumatic, extra-ocular movements intact, pupils equal and reactive to light bilaterally, mucous membranes moist. Cardiovascular: Heart regular rate and rhythm Chest: Able to complete full sentences, no retractions, no tachypnea Abdomen: abdomen soft, non-tender, non-distended, no organomegaly Musculoskeletal: Pulses present and equal in all extremities, no peripheral edema Motor: no focal deficits noted Neurological: CN II-XII grossly intact, no focal motor deficits noted. Reported decreased sensation to light touch of the left upper arm Skin: Intact with no visualized rashes Psych: Normal affect and mood Limitations: no limitations Course Vital Signs 08/23/23 08/23/23 08/23/23 07:34 07:38 08:38 Temperature 97.9 F Pulse Rate 55 L 58 L 60 Respiratory 18 16 16 Rate Blood Pressure 148/65 150/76 150/76 O2 Sat by Pulse 97 98 98 Oximetry 08/23/23 08/23/23 09:00 09:59 Temperature Pulse Rate 55 L 56 L Respiratory 16 20 Rate Blood Pressure 145/58 135/76 O2 Sat by Pulse 98 96 Oximetry EKG Findings - EKG Comments: EKG Findings:: My EKG interpretation: Ventricular rate 55, sinus bradycardia, OK interval 183, QRS 93, QTc 441. No OK prolongation, no QTC prolongation, no ST or T-wave changes noted. EKG compared to 06/05/2022 showing no changes. Overall, this EKG is unremarkable Medical Decision Making - Medical Decision Making Was pt. sent in by a medical professional or institution (, [facility], [facility], urgent c are, hospital, or [facility]...) When possible be specific @ -No Did you speak to anyone other than the patient for history (EMS, parent, family, police, friend...)? What history was obtained from this source @ -No Did you review nursing and triage notes (agree or disagree)? Why? @ -I reviewed and agree with nursing and triage notes Were old charts reviewed (outside hosp., previous admission, EMS record, old EKG, old radiological studies, urgent care reports/EKG's, [facility] records)? Report findings @ -No old charts were reviewed Differential Diagnosis (chest pain, altered mental status, abdominal pain women, abdominal pain men, vaginal bleeding, musculoskeletal, weakness, fever, dyspnea, syncope, headache, dizziness, GI bleed, back pain, seizure, CVA, palpatations, mental health)? @ - Differential CVA: Ischemic stroke, hemorrhagic stroke, brain tumor, atypical migraine, Wernicke's encephalopathy, seizure, multiple sclerosis, meningitis, encephalitis, hypoglycemia, Guillain-Hendrickson, electrolytes disturbance, myasthenia gravis.... This is not meant to be an all-inclusive list EKG interpreted by me (3pts min.). @ -See above X-rays interpreted by me (1pt min.). @ -X-ray shows questionable right lower lobe infiltrate CT interpreted by me (1pt min.). @ -None done U/S interpreted by me (1pt. min.). @ -None done What testing was considered but not performed or refused? (CT, X-rays, U/S, labs)? Why? @ -None What meds were considered but not given or refused? Why? @ -None Did you discuss the management of the patient with other professionals (professionals i.e. [facility], [facility], lab, RT, psych nurse, licensed social worker, electric meter installer helper, teacher, police commanding officer, case management manager)? Give summary @ -Is with Dr. Arroyo for admission Was smoking cessation discussed for >3mins.? @ -No Was critical care preformed (if so, how long)? @ -No Were there social determinants of health that impacted care today? How? (Homelessness, low income, unemployed, alcoholism, drug addiction, transportation, low edu. Level, literacy, decrease access to med. care, [facility], rehab)? @ -No Was there de-escalation of care discussed even if they declined (Discuss DNR or withdrawal of care, Hospice)? DNR status @ -No What co-morbidities impacted this encounter? (DM, HTN, Smoking, COPD, CAD, Cancer, CVA, ARF, Chemo, Hep., AIDS, mental health diagnosis, sleep apnea, morbid obesity)? @ -None Was patient admitted / discharged? Hospital course, mention meds given and route, prescriptions, significant lab abnormalities, going to OR and other pertinent info. @ -73-year-old female with intermittent sputtering symptoms of left upper extremity sensory deficits. She has very minimal symptoms at the bedside. Her symptoms do not suggest cervical radiculopathy because she does not have any associated neck symptoms. Vital signs upon arrival are within acceptable limits. NIH score of 1. not candidate for alteplase due to low NIH score, risks outweighed the benefits. Patient given aspirin. Scans negative. Labs negative. Patient admitted for neurology consultation Undiagnosed new problem with uncertain prognosis? @ -No Drug Therapy requiring intensive monitoring for toxicity (Heparin, Nitro, Insulin, Cardizem)? @ -No Were any procedures done? @ -No Diagnosis/symptom? Acute, or Chronic, or Acute on Chronic? Uncomplicated (without systemic symptoms) or Complicated (systemic symptoms)? @ -Left upper extremity sensory deficit Side effects of treatment? @ -No Exacerbation, Progression, or Severe Exacerbation? @ -No Poses a threat to life or bodily function? How? (Chest pain, USA, LA, pneumonia, PE, COPD, DKA, ARF, appy, cholecystitis, CVA, Diverticulitis, Homicidal, Suicidal, threat to staff... and all critical care pts) @ -yes - Lab Data Result diagrams: 08/23/23 08:08 08/23/23 08:08 Lab Results 08/23/23 08/23/23 08/23/23 Range/Units 08:08 08:08 08:08 WBC 6.5 (3.8-10.6) k/uL RBC 3.55 L (3.80-5.40) m/uL Hgb 12.2 (11.4-16.0) gm/dL Hct 36.6 (34.0-46.0) % MCV 103.1 H (80.0-100.0) fL MCH 34.4 (25.0-35.0) pg MCHC 33.4 (31.0-37.0) g/dL RDW 13.3 (11.5-15.5) % Plt Count 164 (150-450) k/uL MPV 8.9 Neutrophils % 71 % Lymphocytes % 18 % Monocytes % 5 % Eosinophils % 3 % Basophils % 0 % Neutrophils # 4.7 (1.3-7.7) k/uL Lymphocytes # 1.2 (1.0-4.8) k/uL Monocytes # 0.3 (0-1.0) k/uL Eosinophils # 0.2 (0-0.7) k/uL Basophils # 0.0 (0-0.2) k/uL Macrocytosis Slight PT 9.8 L (10.0-12.5) sec INR 0.9 (<1.2) APTT 23.4 (22.0-30.0) sec Sodium 137 (137-145) mmol/L Potassium 4.0 (3.5-5.1) mmol/L Chloride 104 (98-107) mmol/L Carbon Dioxide 27 (22-30) mmol/L Anion Gap 6 mmol/L BUN 14 (7-17) mg/dL Creatinine 0.63 (0.52-1.04) mg/dL Est GFR (CKD-EPI)AfAm >90 (>60 ml/min/1.73 sqM) Est GFR (CKD-EPI)NonAf 88 (>60 ml/min/1.73 sqM) Glucose 103 H (74-99) mg/dL Calcium 9.9 (8.4-10.2) mg/dL Total Bilirubin 0.8 (0.2-1.3) mg/dL AST 19 (14-36) U/L ALT 17 (4-34) U/L Alkaline Phosphatase 76 (38-126) U/L Creatine Kinase 45 (30-135) U/L Troponin I (0.000-0.034) ng/mL Total Protein 6.1 L (6.3-8.2) g/dL Albumin 3.5 (3.5-5.0) g/dL 08/23/23 Range/Units 08:08 WBC (3.8-10.6) k/uL RBC (3.80-5.40) m/uL Hgb (11.4-16.0) gm/dL Hct (34.0-46.0) % MCV (80.0-100.0) fL MCH (25.0-35.0) pg MCHC (31.0-37.0) g/dL RDW (11.5-15.5) % Plt Count (150-450) k/uL MPV Neutrophils % % Lymphocytes % % Monocytes % % Eosinophils % % Basophils % % Neutrophils # (1.3-7.7) k/uL Lymphocytes # (1.0-4.8) k/uL Monocytes # (0-1.0) k/uL Eosinophils # (0-0.7) k/uL Basophils # (0-0.2) k/uL Macrocytosis PT (10.0-12.5) sec INR (<1.2) APTT (22.0-30.0) sec Sodium (137-145) mmol/L Potassium (3.5-5.1) mmol/L Chloride (98-107) mmol/L Carbon Dioxide (22-30) mmol/L Anion Gap mmol/L BUN (7-17) mg/dL Creatinine (0.52-1.04) mg/dL Est GFR (CKD-EPI)AfAm (>60 ml/min/1.73 sqM) Est GFR (CKD-EPI)NonAf (>60 ml/min/1.73 sqM) Glucose (74-99) mg/dL Calcium (8.4-10.2) mg/dL Total Bilirubin (0.2-1.3) mg/dL AST (14-36) U/L ALT (4-34) U/L Alkaline Phosphatase (38-126) U/L Creatine Kinase (30-135) U/L Troponin I <0.012 (0.000-0.034) ng/mL Total Protein (6.3-8.2) g/dL Albumin (3.5-5.0) g/dL Disposition Clinical Impression: CVA (cerebral vascular accident) Disposition: ADMITTED IP TO THIS HOSP Condition: Fair Referrals: Sherice Arroyo MD [Primary Care Provider] - 1-2 days Decision Time: 10:46
[2023-08-23 08:29] LABS: Basophils % (A) 0 %; Eosinophils # (A) 0.2 k/uL (0-0.7); Eosinophils % (A) 3 %; HCT 36.6 % (34.0-46.0); HGB 12.2 gm/dL (11.4-16.0); Lymphocytes # (A) 1.2 k/uL (1.0-4.8); Lymphocytes % (A) 18 %; MCH 34.4 pg (25.0-35.0); MCHC 33.4 g/dL (31.0-37.0); MCV 103.1 fL (80.0-100.0); Macrocytosis Slight; Mean Platelet Volume 8.9; Monocytes # (A) 0.3 k/uL (0-1.0); Monocytes % (A) 5 %; Neutrophils # (A) 4.7 k/uL (1.3-7.7); Neutrophils % (A) 71 %; Platelet Count 164 k/uL (150-450); RBC 3.55 m/uL (3.80-5.40); RDW 13.3 % (11.5-15.5); WBC 6.5 k/uL (3.8-10.6)
[2023-08-23 08:41] LABS: INR 0.9 (<1.2); Partial Thromboplastin Time 23.4 sec (22.0-30.0); Prothrombin Time 9.8 sec (10.0-12.5)
[2023-08-23 08:42] LABS: ALT 17 U/L (4-34); AST 19 U/L (14-36); African American GFR (CKD) >90 (>60 ml/min/1.73 sqM); Albumin 3.5 g/dL (3.5-5.0); Alkaline Phosphatase 76 U/L (38-126); Anion Gap 6 mmol/L; Blood Urea Nitrogen 14 mg/dL (7-17); Calcium 9.9 mg/dL (8.4-10.2); Carbon Dioxide 27 mmol/L (22-30); Chloride 104 mmol/L (98-107); Creatine Kinase 45 U/L (30-135); Glucose 103 mg/dL (74-99); Non-African American GFR(CKD) 88 (>60 ml/min/1.73 sqM); Sodium 137 mmol/L (137-145); Total Bilirubin 0.8 mg/dL (0.2-1.3); Total Protein 6.1 g/dL (6.3-8.2)
--- NOTE | 2023-08-23 08:46 | XR ---
EXAMINATION TYPE: XR chest 2V DATE OF EXAM: 08/23/2023 COMPARISON: 06/04/2020 TECHNIQUE: PA and lateral views submitted. HISTORY: Altered mental status FINDINGS: Basilar consolidation on the right. Surgical clips in epigastrium Limited inspiration. No pneumothora x or pleural effusion.. Heart size normal and no overt failure. Osseous structures demonstrate hyper trophic and degenerative changes of the spine. IMPRESSION: 1. Right lower lobe infiltrate.
--- NOTE | 2023-08-23 08:49 | CT ---
EXAMINATION TYPE: CT brain cspine wo con DATE OF EXAM: 08/23/2023 COMPARISON: MRI brain 2011 HISTORY: Left arm numbness CT DLP: 1528.5 mGycm. Automated Exposure Control for Dose Reduction was Utilized. TECHNIQUE: CT scan of the head and cervical spine are performed without contrast. FINDINGS: There is no acute intracranial hemorrhage or midline shift identified. Mild ventricular a nd sulcal prominence is present. The calvarium is intact. Olguin-white matter differentiation fairly w ell-maintained. The globes are intact and the visualized sinuses are clear. Cervical spine is visualized in its entirety from C1 through upper thoracic levels and demonstrates l evoconvex scoliosis centered in the thoracic spine without evidence of acute fracture or dislocation. Prevertebral soft tissue appears within normal limits. The C1-C2 articulation is within normal aguirre its on the coronal images. Vertebral body heights are preserved. There is [id number] multileve l disc space narrowing C4-C5 through C6-C7 levels. Spinal canal is grossly maintained. Review of axia l images show some multilevel uncovertebral facet degenerative changes bilaterally. Heterogeneous nor mal-sized thyroid gland is seen. Lung apices are clear without pneumothorax identified. IMPRESSION: 1. There is no acute fracture or dislocation evident in the cervical spine. 2. No acute intracranial hemorrhage or midline shift is seen.
[2023-08-23] MEDS ORDERED: ASPIRIN 81 MG PO STA (10:32)
[2023-08-23] MEDS ORDERED: NALOXONE 0.4 MG/ML 1 ML VIAL IV PRN (10:33)
[2023-08-23] MEDS: SODIUM CHLORIDE 0.9% 1,000 ML IV SCH (10:51)
[2023-08-23] MEDS: busPIRone HCl 5 MG TAB PO PRN (15:56)
[2023-08-23] MEDS ORDERED: CLOTRIMAZOLE/BETAMETH 1-0.05% CREAM 45 GM TUBE TOPICAL PRN (16:36)
[2023-08-23] MEDS ORDERED: ASPIRIN 81 MG PO PRN (16:36)
[2023-08-23] MEDS ORDERED: ACETAMINOPHEN TAB 500 MG TAB PO PRN (16:36)
[2023-08-23] MEDS ORDERED: PANTOPRAZOLE 40 MG TABLET PO PRN (16:36)
[2023-08-23] MEDS ORDERED: NYSTATIN 100,000 UNIT/GM POWD 15 GM TOPICAL PRN (16:36)
[2023-08-23] MEDS ORDERED: NON FORMULARY DRUG (Buspirone Hcl [Buspar] 7.5 MG Tablet) PO PRN (16:36)
--- NOTE | 2023-08-23 17:05 | P.CNNES ---
History of Present Illness Consult date: 08/23/23 Requesting physician: Peyman Luz Reason for Consult: left arm sensory deficit History of Present Illness: This is a 73-year-old woman who states she woke up around 6:00 in the morning with left arm being heavy more than the right as well as numbness and tingling over the left side. She denies any slurring of the speech, any difficulty swallowing, any visual defect.Her last normal state was 8:30 PM the night be [employer]. Her symptoms lasted a few hours and resolved. She denies any history of stroke or TIA in the past. Denies of any neck pain. Denies of being on any antiplatelet. Denies of any diabetes. She does have underlying history of hypertension. Some of the workup during his hospital visit consisted of: Sodium, calcium, AST ALT, BUN and creatinine are within normal limits. CT of the head is reported as no acute intracranial hemorrhage or midline shift. I personally reviewed this to the head and I agree with the report. CT cervical spine was reported as no acute fracture or dislocation evident in the cervical spine. Upon reviewing data CT cervical spine feel the patient has moderate significant stenosis of C1-C2 Review of Systems Positive and negative as per HPI. Past Medical History Past Medical History: Atrial Fibrillation, Cancer, COPD, GERD/Reflux, Hyperlipidemia, Hypertension, Memory Impairment, Osteoarthritis (OA), Pneumonia, Skin Disorder Additional Past Medical History / Comment(s): Basal cell skin cancer on her face status post radiation and skin graft, left breast cancer, chronic back pain, migraines, IBS, diverticulitis, urinary incontinence-wears depends when goes anywhere, states she tripped and fell at the [facility] office prior to [place], states recent MRI of brain- states she is getting forgetful and is falling more, supposed to have right foot surgery but was cancelled due to recent stress test History of Any Multi-Drug Resistant Organisms: None Reported Past Surgical History: Appendectomy, Breast Surgery, Heart Catheterization, Hysterectomy, Joint Replacement, Orthopedic Surgery, Tonsillectomy Additional Past Surgical History / Comment(s): margarita Cataracts removed w/lens implant, skin graft to her face for basal cell cancer, pain clinic procedures, "esophageal wrap", left breast biopsy and left breast lumpectomy, margarita knee replacement. Tendon repair right foot 06/03/22 Past Anesthesia/Blood Transfusion Reactions: Previous Problems w/ Anesthesia Additional Past Anesthesia/Blood Transfusion Reaction / Comment(s): hallucinations. pt told drop in BP during surgery caused from taking her avalide am of procedure-told she should not take when getting anesthesia Past Psychological History: Anxiety, Depression Smoking Status: Former smoker Past Alcohol Use History: None Reported Past Drug Use History: None Reported - Past Family History Father Additional Family Medical History / Comment(s): Father at age 80 with previous history of myocardial infarction age 79 and status post AICD. Patient has 6 uncles on her father's side that had myocardial infarctions. Brother(s) Family Medical History: No Reported History Additional Family Medical History / Comment(s): . Daughter(s) Family Medical History: No Reported History Additional Family Medical History / Comment(s): . Mother Family Medical History: Deep Vein Thrombosis (DVT) Additional Family Medical History / Comment(s): . Medications and Allergies Home Medications Medication Instructions Recorded Confirmed Type Atorvastatin Calcium [Lipitor] 40 mg PO DAILY 01/23/14 08/23/23 History FLUoxetine HCL [PROzac] 60 mg PO DAILY 01/23/14 08/23/23 History Irbesartan/Hydrochlorothiazide 1 tab PO DAILY 01/23/14 08/23/23 History [Avalide 150-12.5 mg Tablet] QUEtiapine [SEROquel] 25 mg PO HS 01/23/14 08/23/23 History Omeprazole 20 mg PO DAILY PRN 11/13/18 08/23/23 History Solifenacin Succinate [Vesicare] 10 mg PO HS 06/19/19 08/23/23 History Metoprolol Succinate [Toprol XL] 25 mg PO DAILY 09/27/19 08/23/23 History busPIRone HCL [Buspar] 15 mg PO BID PRN 12/02/21 08/23/23 History Aspirin 81 mg PO ONCE PRN 03/29/22 08/23/23 History Acetaminophen Tab [Tylenol Tab] 1,000 mg PO Q6H PRN 08/23/23 08/23/23 History Clotrimazole/Betameth Cream 1 applic TOPICAL BID PRN 08/23/23 08/23/23 History [Lotrisone] Nystatin 100,000 Unit/gm Powd 1 applic TOPICAL BID PRN 08/23/23 08/23/23 History [Mycostatin Powder] clonazePAM [KlonoPIN] 2 mg PO HS 08/23/23 08/23/23 History Allergies Allergy/AdvReac Type Severity Reaction Status Date / Time erythromycin base Allergy Rash/Hives Verified 08/23/23 08:53 [Erythromycin Base] adhesive AdvReac EVEN PAPER Verified 08/23/23 08:53 TAPE CAUSES BLISTERS IF LEFT ON. hydrocodone bitartrate AdvReac Hallucinati Verified 08/23/23 08:53 [From Lortab] ons morphine AdvReac Hallucinati Verified 08/23/23 08:53 ons procaine [From Novocain] AdvReac passed out Verified 08/23/23 08:53 years ago after an injection in finger Physical Examination - Vital Signs Vital Signs: Vital Signs Temp Pulse Pulse Resp BP BP Pulse Ox 08/23/23 16:00 97.9 F 62 16 124/74 95 08/23/23 12:37 54 L 16 114/97 95 08/23/23 09:59 56 L 20 135/76 96 08/23/23 09:00 55 L 16 145/58 98 08/23/23 08:38 60 16 150/76 98 08/23/23 07:38 58 L 16 150/76 98 08/23/23 07:34 97.9 F 55 L 18 148/65 97 Intake and Output 08/23/23 08/23/23 08/23/23 06:59 14:59 22:59 Other: Weight 108.862 kg GENERAL: The patient is an obese woman, lying in bed and is not in acute distress. NEUROLOGICAL: Higher mental function: The patient is awake, alert, oriented to self, place and time. Patient is following commands. No aphasia and no neglect. Cranial nerves: The pupils are round, equal and reactive to light and accommodation. Visual rapp are full to confrontation throughout. Extraocular movement is intact no nystagmus is noted. Facial sensation is normal to touch throughout. The facial strength is normal throughout. Hearing is normal bilaterally to hand rub. Tongue is midline and moved [id number] without any difficulty. No dysarthria is noted. Shoulder shrug is normal bilaterally. Motor: The strength is 5 over 5 throughout. Normal tone and bulk. Cerebellum: Normal finger to nose bilaterally. Sensation: Sensation is normal to touch throughout. Reflexes (right/left): 1+ throughout. Plantars are downgoing bilaterally. Results - Laboratory Findings CBC and BMP: 08/23/23 08:08 08/23/23 08:08 Abnormal Lab Findings: Abnormal Labs 08/23/23 08/23/23 08/23/23 08:08 08:08 08:08 RBC 3.55 L MCV 103.1 H PT 9.8 L Glucose 103 H Total Protein 6.1 L Assessment and Plan Assessment: This is a 73-year-old woman who presents because of the paresthesia and weakness of the left more than the right upper extremity that was brief. Transient paresthesia of left more than right upper extremity with weakness: Rule out any significant cervical stenosis versus possible TIA Hypertension Morbid obesity Plan: I ordered MRI of the brain and cervical spine. If the patient does have any significant cervical stenosis or myelopathy then we'll consult orthopedic surgery team Patient is on aspirin 81 mg daily and it started as a when necessary since it's reported as did not feel well by primary team. She is also started on Lipitor 40 mg daily 2-D echo, carotid duplex are ordered and pending I ordered TSH, hemoglobin A1c, folate and lipid panel I consulted PT OT Continue neuro checks Cardiac monitoring We'll defer the rest of the medical management to primary team For DVT prophylaxis she is on Lovenox. Thank you for the consultation. Time with Patient: Greater than 30
--- NOTE | 2023-08-23 18:41 | US ---
EXAMINATION TYPE: US carotid duplex BILAT DATE OF EXAM: 08/23/2023 COMPARISON: MRA brain 2011 CLINICAL INDICATION: Female, 73 years old with history of TIA; TIA. Prior smoker, patient quit smokin g 10 years ago. Hx hypertension, hyperlipidemia. TECHNIQUE: Carotid duplex ultrasound examination. Indirect Doppler criteria was utilized. 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 Elevated velocities within left mid and distal ICA. Ratio was 2.0 on the right and 2.0 on the left. Ratios are elevated at the se levels. IMPRESSION: Atheromatous plaquing with moderate stenosis between 50 and 69% at the left internal carotid artery. There is approximately 50% narrowing at the right internal carotid artery origin. Criteria for Assigning % of Stenosis / Diameter reduction (Estimation based on the indirect measurements of the internal carotid artery velocities (ICA PSV). 1. Normal (no stenosis)=ICA PSV < 125 cm/s: ratio < 2.0: ICA EDV<40 cm/s. 2. Less than 50% stenosis=ICA PSV < 125 cm/s: ratio < 2.0: ICA EDV<40 cm/s. 3. 50 to 69% stenosis=ICA PSV of 125 to 230 cm/s: ration 2.0 ? 4.0: ICA EDV 40-100 cm/s. 4. Greater than 70% stenosis to near occlusion= ICA PSV > 230 cm/s: ratio > 4.0: ICA EDV > 100 cm/s. 5. Near occlusion= ICA PSV velocities may be low or undetectable: variable ratio and ICA EDV. 6. Total occlusion=unable to detect flow.
[2023-08-23] MEDS ORDERED: clonazePAM 1 MG TAB PO SCH (21:00)
[2023-08-23] MEDS ORDERED: QUEtiapine 25 MG TAB PO SCH (21:00)
[2023-08-23] MEDS: TROSPIUM CHLORIDE 20 MG TABLET PO SCH (21:44)
[2023-08-23] MEDS ORDERED: ZINC OXIDE PASTE (Z-GUARD) 1 APPLIC APPLIC TOPICAL PRN (23:46)
[2023-08-24 03:12] LABS: Chol/HDL Ratio 2.39 Ratio; LDL Cholesterol,Calculated 56.8 mg/dL (0.0-131.0)
[2023-08-24] MEDS ORDERED: METOPROLOL SUCCINATE (ER) 25 MG TAB.ER.24H PO SCH (09:00)
[2023-08-24] MEDS ORDERED: LOSARTAN 50 MG TAB PO SCH (09:00)
[2023-08-24] MEDS ORDERED: FLUoxetine HCL 20 MG CAP PO SCH (09:00)
[2023-08-24] MEDS ORDERED: ATORVASTATIN 40 MG TAB PO SCH (09:00)
[2023-08-24] MEDS ORDERED: ENOXAPARIN 40 MG/0.4 ML SYRINGE SQ SCH (09:00)
[2023-08-24] MEDS: TROSPIUM CHLORIDE 20 MG TABLET PO SCH (10:23)
[2023-08-24] MEDS: hydroCHLOROthiazide 12.5 MG CAP PO SCH ×2 (10:24→10:25)
[2023-08-24 10:37] VITALS: TEMP 98
[2023-08-24] MEDS: SODIUM CHLORIDE 0.9% 1,000 ML IV SCH (11:05)
--- NOTE | 2023-08-24 11:55 | CA ---
Transthoracic Echo Report Name: Winnie Ibarra Age: 73 Gender: F : 1950 Exam Date: 08/24/2023 10:03 Exam Location: [facility] Ht (in): 62 Wt (lb): 240 Ordering Physician: Sherice Arroyo MD Attending/Referring Phys: [facility] Registrar Russel Wright Procedure CPT: Indications: tia Cardiac Hx: Technical Quality: Fair Contrast 1: Total Dose (mL): Contrast 2: Total Dose (mL): MEASUREMENTS (Male / Female) Normal Values 2D ECHO LV Diastolic Diameter PLAX 4.5 cm 4.2 - 5.9 / 3.9 - 5.3 cm LV Systolic Diameter PLAX 3.5 cm IVS Diastolic Thickness 2.0 cm 0.6 - 1.0 / 0.6 - 0.9 cm LVPW Diastolic Thickness 1.0 cm 0.6 - 1.0 / 0.6 - 0.9 cm LV Relative Wall Thickness 0.7 RV Internal Dim ED PLAX 3.2 cm LVOT Diameter 2.0 cm Aortic Root Diameter 3.3 cm LA Systolic Diameter LX 1.5 cm 3.0 - 4.0 / 2.7 - 3.8 cm LV Diastolic Volume MOD BP 55.7 cm??? 67 - 155 / 56 - 104 cm??? LV Systolic Volume MOD BP 25.7 cm??? 22 - 58 / 19 - 49 cm??? LV Ejection Fraction MOD BP 53.8 % >= 55 % LV Cardiac Index MOD BP 975.2 cm???/min???m??? LV Diastolic Volume MOD 4C 71.3 cm??? LV Systolic Volume MOD 4C 28.4 cm??? LV Ejection Fraction MOD 4C 60.1 % LV Cardiac Index MOD 4C 1394.0 cm???/min???m??? LV Diastolic Length 4C 6.8 cm LV Systolic Length 4C 6.3 cm LV Diastolic Volume MOD 2C 43.3 cm??? LV Systolic Volume MOD 2C 22.2 cm??? LV Ejection Fraction MOD 2C 48.8 % LV Cardiac Index MOD 2C 686.7 cm???/min???m??? LV Diastolic Length 2C 6.7 cm LV Systolic Length 2C 5.9 cm LA Volume 52.5 cm??? 18 - 58 / 22 - 52 cm??? LA Volume Index 23.4 cm???/m??? 16 - 28 cm???/m??? Ascending Aorta Diameter 3.0 cm DOPPLER AV Peak Velocity 146.3 cm/s AV Peak Gradient 8.6 mmHg LVOT Peak Velocity 97.6 cm/s LVOT Peak Gradient 3.8 mmHg LVOT Velocity Time Integral 25.4 cm LVOT Stroke Volume 77.0 cm??? LVOT Stroke Volume Index 37.3 ml/m??? LVOT Cardiac Index 2502.2 cm???/min???m??? AV Area Cont Eq pk 2.0 cm??? MV Peak Velocity 118.5 cm/s MV Peak Gradient 5.6 mmHg MV Mean Velocity 55.4 cm/s MV Mean Gradient 1.6 mmHg MV Velocity Time Integral 35.8 cm MR Peak Velocity 287.6 cm/s MR Peak Gradient 33.1 mmHg Mitral E Point Velocity 89.1 cm/s Mitral A Point Velocity 114.4 cm/s Mitral E to A Ratio 0.8 MV Deceleration Time 271.3 ms MV E' Velocity 8.0 cm/s Mitral E to MV E' Ratio 11.1 TR Peak Velocity 249.7 cm/s TR Peak Gradient 24.9 mmHg Right Ventricular Systolic Press 30.0 mmHg PV Peak Velocity 92.4 cm/s PV Peak Gradient 3.4 mmHg FINDINGS Left Ventricle Increased septal wall thickness. Mildly increased posterior wall thickness. Left ventricular ejection fraction is estimated at 50-55 %. Right Ventricle Normal right ventricular size. RVSP= 30ml/m2 Right Atrium Normal right atrial size. Left Atrium Mild left atrial dilatation. LA volume index= 25ml/m2 Mitral Valve Moderate posterior MAC. Mild MR. Aortic Valve Trileaflet aortic valve. Mild AV calcification. No aortic stenosis. No aortic regurgitation. Tricuspid Valve Structurally normal tricuspid valve. Mild TR. Pulmonic Valve Pulmonic valve not well visualized. No pulmonic regurgitation. Pericardium Grossly normal. Aorta Normal size aortic root and proximal ascending aorta. CONCLUSIONS Normal LV systolic function Aortic sclerosis Mitral annular calcification Previewed by: Dr. Kelechi Gusman MD (Electronically Signed) Final Date: 24 August 2023 11:54
[2023-08-24 12:14] VITALS: RESP 16
--- NOTE | 2023-08-24 13:40 | P.PN ---
Subjective Progress Note Date: 08/24/23 I am following-up with patient and she feels about the same. She denies of any new neurological issues. She stated she was told she had 3 disc buldge on the neck by her primary and she is refusing any surgical intervention. Objective - Vital Signs Vital signs: Vital Signs Temp 98 F 08/24/23 08:00 Pulse 73 08/24/23 11:57 Resp 16 08/24/23 11:57 BP 161/69 08/24/23 11:57 Pulse Ox 94 L 08/24/23 11:57 FiO2 Intake & Output 08/23/23 08/24/23 08/24/23 18:59 06:59 18:59 Output Total 1 Balance -1 Weight 108.862 kg 108.862 kg Output: Urine 1 Other: Voiding Method Toilet Toilet Diaper Diaper # Voids 3 - Exam GENERAL: The patient is an obese woman, lying in bed and is not in acute distress. NEUROLOGICAL: Higher mental function: The patient is awake, alert, oriented to self, place and time. Patient is following commands. No aphasia and no neglect. Cranial nerves: The pupils are round, equal and reactive to light and a ccommodation. Visual rapp are full to confrontation throughout. Extraocular movement is intact no nystagmus is noted. Facial sensation is normal to touch throughout. The facial strength is normal throughout. Hearing is normal bilaterally to hand rub. Tongue is midline and moved [id number] without any difficulty. No dysarthria is noted. Shoulder shrug is normal bilaterally. Motor: The strength is 5 over 5 throughout. Normal tone and bulk. Cerebellum: Normal finger to nose bilaterally. Sensation: Sensation is normal to touch throughout. Reflexes (right/left): 1+ throughout. Plantars are downgoing bilaterally. Some of the workup during his hospital visit consisted of: Lipid panel: TG 106, Cholestrol 134, LDL 56 and HDL 56 Vitamin B12: 733 Folate: 13.6 HbA1c: 5.9 Sodium, calcium, AST ALT, BUN and creatinine are within normal limits. CT of the head is reported as no acute intracranial hemorrhage or midline shift. I personally reviewed this to the head and I agree with the report. CT cervical spine was reported as no acute fracture or dislocation evident in th e cervical spine. Upon reviewing data CT cervical spine feel the patient has moderate significant stenosis of C1-C2 Carotid duplex: It is reported as Atheromatous plaquing with moderate stenosis of 50-69% at left internal carotid artery. There is approximately 50% narrowing at the right internal carotid artery origin. 2D echo: Normal left ventricle soft function. Aortic sclerosis. Mitral annular calcification. - Labs CBC & Chem 7: 08/23/23 08:08 08/23/23 08:08 Assessment and Plan Assessment: This is a 73-year-old woman who presents because of the paresthesia and weakness of the left more than the right upper extremity that was brief. Transient paresthesia of left more than right upper extremity with weakness: Rule out any significant cervical stenosis versus possible TIA Left ICA stenosis 50-69% per carotid duplex and I feel is likely asymptomatic Hypertension Morbid obesity Plan: Pending MRI of the brain and cervical spine. Patient refusing any surgical intervention on neck if has any significant neck issues. Patient is on aspirin 81 mg daily and it started as a when necessary since it's reported as did not feel well by primary team. I recommend scheduled daily and if cannot tolerate it then Plavix 75mg daily. She is also started on Lipitor 40 mg daily Regarding the Left ICA stenosis, I feel asymptomatic but will wait for MRI. Consider following-up with vascular surgery as outpatient. PT and OT are consulted Continue neuro checks Cardiac monitoring We'll defer the rest of the medical management to primary team For DVT prophylaxis she is on Lovenox. The plan is discussed with patient and her nurse. Time with Patient: Less than 30
[2023-08-24] MEDS: busPIRone HCl 5 MG TAB PO PRN (14:02)
[2023-08-24] MEDS ORDERED: ASPIRIN 81 MG PO SCH (14:30)
[2023-08-24 15:27] VITALS: BP 145/70; PULSE 77
--- NOTE | 2023-08-24 16:23 | MR ---
EXAMINATION TYPE: MR brain/cspine wo DATE OF EXAM: 08/24/2023 COMPARISON: Prior CT brain and cervical spine August 23, 2023 HISTORY: Paresthesia and weakness > right arm TECHNIQUE: Multiplanar, multisequence imaging of the brain and brainstem and cervical spine is perfor med without IV contrast. FINDINGS: BRAIN: Diffusion weighted images demonstrate single 3 mm punctate focus in the deep right parietal lobe axia l image 176 near the midline series 303 but this shows T2 hyperintense signal and increased signal on ADC mapping consistent with T2 shine through. No convincing evidence for restricted diffusion. There is background mild to moderate ventricular and sulcal prominence. There are scattered foci of T 2 hyperintensity seen throughout the white matter bilaterally. Approximately 15 scattered lesions are seen. Punctate areas of hyperdensity in the right frontal lobe could reflect products of old hemorrh age or BHARTI. No hyperdense areas seen on recent CT at this level Midline structures demonstrate normal morphology. The craniocervical junction appears within normal limits. Normal vascular flow voids are present. The visualized sinuses are clear. Bilateral aphakia i s present. Patchy fluid left mastoid air cells. Correlate clinically. IMPRESSION: No MRI evidence for recent infarct. Mild to moderate diffuse cerebral atrophy and mild ch ronic small vessel ischemic changes are appreciated. C-SPINE: FINDINGS: There is levoconvex scoliosis centered in the upper thoracic spine redemonstrated. There is persistent slight grade 1 retrolisthesis of C4 on C5 and C5 on C6. Sagittal images of the cervical s pine show the craniocervical junction to appear within normal limits. The cervical and upper thoraci c spinal cord is normal in caliber and signal. Vertebral body heights are normal. Mild mild multileve l disc space narrowing is redemonstrated. The bone marrow signal intensity is within normal limits. Axial images show C2-C3 and C3-C4 level to appear within normal limits. Axial images at C4-C5 levels show spondylolisthesis with uncovertebral facet degenerative changes margarita aterally and broad-based posterior disc protrusion effaces the anterior thecal sac and causing mild-t o-moderate bilateral neural foraminal narrowing. Axial images at C5-C6 level shows spondylolisthesis with broad-based left paracentral disc protrusion effacing anterior thecal sac and some uncovertebral facet degenerative changes causing mild bilatera l neural foraminal narrowing. Axial images at C6-C7 and C7-T1 levels appear within normal limits. Trace bilateral pleural effusions are visualized. IMPRESSION: Scoliosis with some multilevel spondylolisthesis and degenerative change in the midcervic al spine redemonstrated.
--- NOTE | 2023-08-24 18:07 | P.HPIM ---
History of Present Illness H&P Date: 08/23/23 Chief Complaint: TIA/CVA HISTORY OF PRESENT ILLNESS: This is a 73-year-old female with a previous medical history significant for hypertension and hypertensive cardiovascular disease, hyperlipidemia, history of breast cancer status post left lumpectomy back in 201 5, COPD, history of atrial fibrillation many years ago, history of nonobstructive CAD with 20% stenosis of the proximal LAD and mid RCA as well status post recent heart catheterization, irritable bowel syndrome with diarrhea, history of diverticulosis, history of anxiety disorder, panic attack, patient presented to the Emergency department at [facility] due to increased numbness in the left upper extremity, patient stated that she woke up in the middle of the night with increased numbness in both arms and then her numbness in the right arm resolved and she continues to have increased numbness in the left arm so she came to the ER for possible CVA , had CXR that showed right lower lobe infiltrate and CT scan of the barin was negative and CT of the cervical spine showed DDD C4-C5 and C6-C7 without spinal stenosis, ER physician thought she is at high risk of CVA due to her comorbid conditions therefore she was admitted to the hospital with neurology consultation REVIEW OF SYSTEMS: Constitutional: No documented fever, no chills, no night sweats. No weight change. No weakness, fatigue or lethargy. No daytime sleepiness. HEENT: No headache. No blurred vision or double vision, no loss of vision. No loss of Hearing, no ringing in the ears, no dizziness. No nasal drainage or congestion. No epistaxis. No sore throat. Lungs: No shortness of breath, no cough, no sputum production. No wheezing. Reports dyspnea with activity. Cardiovascular: No chest pain, no lower extremity edema. No palpitations. No paroxysmal nocturnal dyspnea. No orthopnea. No lightheadedness or dizziness. No syncopal episodes. Abdominal: Reports no abdominal pain. No nausea, vomiting. No diarrhea. No constipation. No bloody or tarry stools reports loss of appetite. Genitourinary: No dysuria, increased frequency, urgency. No urinary retention. Musculoskeletal: No myalgias. No muscle weakness, positive for gait dysfunction, right foot pain, low back pain and neck pain. Integumentary: No wounds, no lesions. No rash or pruritus. No unusual bruising. No change in hair or nails. Neurologic: No aphasia. No facial droop. No change in mentation. No head injury. No headache. No paralysis, parathesia of the left upper extremity Psychiatric: No depression. positive for anxiety. No mood swings. Endocrine: obese PAST MEDICAL HISTORY: Hypertension and hypertensive cardiovascular disease Hyperlipidemia. Nonobstructive CAD. Anxiety disorder Diverticulosis. Panic attack. Basal cell cancer status post skin graft. Irritable bowel syndrome with diarrhea. Osteoarthritis. History of atrial fibrillation. COPD. Chronic low back pain Obese. Possible obstructive sleep apnea. Left breast cancer status post lumpectomy GERD. Detrusor instability. PAST SURGICAL HISTORY: Appendectomy. Bilateral cataract surgery. Hysterectomy. Bilateral total knee arthroplasties. Left lumpectomy. Basal cell cancer from the right side of the face post skin graft placement. Colonoscopy. Epidural injection. Maira fundoplication. SOCIAL HISTORY: Patient used to smoke about a pack and a half a day she smoked for about 53 years and she quit in 2012. Patient denies any alcohol ingestion, she denies any drug use or abuse. FAMILY HISTORY: Mother is 94-year-old with history of dementia and had history of DVT, father at age of 80 from myocardial infarction and cardiomyopathy post-AICD, gerhard cano has 3 brothers who are healthy and one sister is healthy as well, patient has 3 sons and 1 daughter no major medical problems. PHYSICAL EXAMINATION: General: 73-year-old female laying down in bed in no distress. HEENT: Head is atraumatic, normocephalic, pupils were equal round reactive to light and recommendation, extraocular muscle movement were intact, sclera nonicteric, conjunctivae were pale, mucous membranes of the mouth are somewhat dry. Neck: Supple, no JVP, normal carotid upstroke bilaterally, no lymphadenopathy. Chest: Decreased breath sounds at the bases, few rhonchi, no expiratory wheezes, no chest wall tenderness, no intercostal retractions. Heart: First heart sound is normal, second heart sounds normal, there is systolic ejection murmur 2/6 located in the left sternal border. Abdomen: Soft, nontender, nondistended, positive bowel sounds. No hepatosplenomegaly. Extremities: there is no edma, no calf tenderness, DP +2 bilaterally Neurologic examination: Patient is awake alert and oriented X3, cranial nerves II-12 appear grossly intact, muscle power were 5 out of 5 in upper extremities and 5 out of 5 in bilateral lower extremities, deep tendon reflexes normal bilaterally. ASSESSMENT AND PLAN: 1. Left upper extremity Paresthesia likely related to Degenerative disc disease of the cervical spine without spinal stenosis, less likely TIA or CVA, patient does have multiple risk factors , we will monitor patient very closely, we will continue with ASA 81 mg po daily and we will get Neurology consult. 2. Hypertension and hypertensive cardiovascular disease. Continue patient on metoprolol ER 25 mg orally once every day as well as Avalide 150/12.5 mg orally once every day monitor the patient blood pressure very closely. 3. Hyperlipidemia. Continue patient on atorvastatin 40 mg orally once every day monitor the patient's lipid panel, keep LDL 55-70. 4. Nonobstructive coronary artery disease status post recent heart catheterization that showed 20% stenosis of the proximal LAD and the mid RCA. Continue patient on aspirin 81 mg once every day, metoprolol succinate ER 25 mg at bedtime and atorvastatin 40 mg once every day continue with aggressive risk factors modification. 5. Remote history of atrial fibrillation currently in sinus rhythm. Continue metoprolol ER 25 mg orally once every day as well as aspirin 81 mg once every day. 6. Anxiety disorder with panic attack. Continue patient on fluoxetine 60 mg once every day as well as BuSpar 15 mg orally twice every day. 7. Irritable bowel syndrome with diarrhea. Appears to be stable at this time. 8. Overactive bladder. continue with Vesicare 10 mg once every day. 9. History of COPD. Continue patient on Spiriva 1 capsule inhalation once every day. 10. GERD status post Maira fundoplication. Continue patient on omeprazole 20 mg once every day. 11. Chronic low back pain secondary to spondylosis of the lumbar spine status post multiple epidural injections as well as radio frequency ablation. Continue current pain management with Robaxin 1500 mg orally twice every day. 12. History of breast cancer status post left lumpectomy. Patient could not tolerate aromatase inhibitors due to significant side effects. 13. Right lower lobe infiltrate. patient does not have signs or symptoms of pneumonia. we will check CT chest 13. DVT Prophylaxis. Continue patient on Lovenox 40 mg subcutaneously every 24 hours. 14. GI prophylaxis. Continue patient on omeprazole 20 mg once every day or its substitute. 15. Patient is full code. 16. Admits to inpatient , estimated length of stay 2 midnights Past Medical History Past Medical History: Atrial Fibrillation, Cancer, COPD, GERD/Reflux, Hyperlipidemia, Hypertension, Memory Impairment, Osteoarthritis (OA), Pneumonia, Skin Disorder Additional Past Medical History / Comment(s): Basal cell skin cancer on her face status post radiation and skin graft, left breast cancer, chronic back pain, migraines, IBS, diverticulitis, urinary incontinence-wears depends when goes anywhere, states she tripped and fell at the [facility] office prior to , states recent MRI of brain- states she is getting forgetful and is falling more, supposed to have right foot surgery but was cancelled due to recent stress test History of Any Multi-Drug Resistant Organisms: None Reported Past Surgical History: Appendectomy, Breast Surgery, Heart Catheterization, Hysterectomy, Joint Replacement, Orthopedic Surgery, Tonsillectomy Additional Past Surgical History / Comment(s): margarita Cataracts removed w/lens implant, skin graft to her face for basal cell cancer, pain clinic procedures, " esophageal wrap", left breast biopsy and left breast lumpectomy, margarita knee replacement. Tendon repair right foot 06/03/22 Past Anesthesia/Blood Transfusion Reactions: Previous Problems w/ Anesthesia Additional Past Anesthesia/Blood Transfusion Reaction / Comment(s): hallucinations. pt told drop in BP during surgery caused from taking her avalide am of procedure-told she should not take when getting anesthesia Past Psychological History: Anxiety, Depression Smoking Status: Former smoker Past Alcohol Use History: None Reported Past Drug Use History: None Reported - Past Family History Father Additional Family Medical History / Comment(s): Father at age 80 with previous history of myocardial infarction age 79 and status post AICD. Patient has 6 uncles on her father's side that had myocardial infarctions. Brother(s) Family Medical History: No Reported History Additional Family Medical History / Comment(s): . Daughter(s) Family Medical History: No Reported History Additional Family Medical History / Comment(s): . Mother Family Medical History: Deep Vein Thrombosis (DVT) Additional Family Medical History / Comment(s): . Medications and Allergies Home Medications Medication Instructions Recorded Confirmed Type Atorvastatin Calcium [Lipitor] 40 mg PO DAILY 01/23/14 08/23/23 History FLUoxetine HCL [PROzac] 60 mg PO DAILY 01/23/14 08/23/23 History Irbesartan/Hydrochlorothiazide 1 tab PO DAILY 01/23/14 08/23/23 History [Avalide 150-12.5 mg Tablet] QUEtiapine [SEROquel] 25 mg PO HS 01/23/14 08/23/23 History Omeprazole 20 mg PO DAILY PRN 11/13/18 08/23/23 History Solifenacin Succinate [Vesicare] 10 mg PO HS 06/19/19 08/23/23 History Metoprolol Succinate [Toprol XL] 25 mg PO DAILY 09/27/19 08/23/23 History busPIRone HCL [Buspar] 15 mg PO BID PRN 12/02/21 08/23/23 History Aspirin 81 mg PO ONCE PRN 03/29/22 08/23/23 History Acetaminophen Tab [Tylenol Tab] 1,000 mg PO Q6H PRN 08/23/23 08/23/23 History Clotrimazole/Betameth Cream 1 applic TOPICAL BID PRN 08/23/23 08/23/23 History [Lotrisone] Nystatin 100,000 Unit/gm Powd 1 applic TOPICAL BID PRN 08/23/23 08/23/23 History [Mycostatin Powder] clonazePAM [KlonoPIN] 2 mg PO HS 08/23/23 08/23/23 History Allergies Allergy/AdvReac Type Severity Reaction Status Date / Time erythromycin base Allergy Rash/Hives Verified 08/23/23 08:53 [Erythromycin Base] adhesive AdvReac EVEN PAPER Verified 08/23/23 08:53 TAPE CAUSES BLISTERS IF LEFT ON. hydrocodone bitartrate AdvReac Hallucinati Verified 08/23/23 08:53 [From Lortab] ons morphine AdvReac Hallucinati Verified 08/23/23 08:53 ons procaine [From Novocain] AdvReac passed out Verified 08/23/23 08:53 years ago after an injection in finger Physical Exam Vitals: Vital Signs Temp Pulse Pulse Resp BP BP Pulse Ox 08/23/23 16:00 97.9 F 62 16 124/74 95 08/23/23 12:37 54 L 16 114/97 95 08/23/23 09:59 56 L 20 135/76 96 08/23/23 09:00 55 L 16 145/58 98 08/23/23 08:38 60 16 150/76 98 08/23/23 07:38 58 L 16 150/76 98 08/23/23 07:34 97.9 F 55 L 18 148/65 97 Intake and Output 08/23/23 08/23/23 08/23/23 06:59 14:59 22:59 Other: Weight 108.862 kg Results CBC & Chem 7: 08/23/23 08:08 08/23/23 08:08 Labs: Abnormal Lab Results - Last 24 Hours (Table) 08/23/23 08/23/23 08/23/23 Range/Units 08:08 08:08 08:08 RBC 3.55 L (3.80-5.40) m/uL MCV 103.1 H (80.0-100.0) fL PT 9.8 L (10.0-12.5) sec Glucose 103 H (74-99) mg/dL Total Protein 6.1 L (6.3-8.2) g/dL
--- NOTE | 2023-08-24 18:12 | P.DS ---
Providers Date of admission: 08/23/23 10:35 Expected date of discharge: 08/24/23 Attending physician: Sherice Arroyo Consults: 08/23/23 10:33 Consult Physician Routine Consulting Provider: Yosef Mota Consult Reason/Comments: left arm sensory deficit Do you want consulting provider notified?: Yes Primary care physician: Sherice Arroyo Hospital Course: HISTORY OF PRESENT ILLNESS: This is a 73-year-old female with a previous medical history significant for hypertension and hypertensive cardiovascular disease, hyperlipidemia, history of breast cancer status post left lumpectomy back in 2014, COPD, history of atrial fibrillation many years ago, history of nonobstructive CAD with 20% stenosis of the proximal LAD and mid RCA as well status post recent heart catheterization, irritable bowel syndrome with diarrhea, history of diverticulosis, history of anxiety disorder, panic attack, patient presented to the Emergency department at [facility] due to increased numbness in the left upper extremity, patient stated that she woke up in the middle of the night with increased numbness in both arms and then her numbness in the right arm resolved and she continues to have increased numbness in the left arm so she came to the ER for possible CVA , had CXR that showed right lower lobe infiltrate and CT scan of the barin was negative and CT of the cervical spine showed DDD C4-C5 and C6-C7 without spinal stenosis, ER physician thought she is at high risk of CVA due to her comorbid conditions therefore she was admitted to the hospital with neurology consultation 08/24: Patient underwent MRI of the brain and cervical spine that showed small vessel disease without infarct or bleed, and the Cervical spine MRI showed DDD with scoliosis and she will need follow up as out patient with for epidural, she is stable to be discharged home ASSESSMENT AND PLAN: 1. Left upper extremity Paresthesia likely related to Degenerative disc disease of the cervical spine without spinal stenosis 2. Hypertension and hypertensive cardiovascular disease. 3. Hyperlipidemia. 4. Nonobstructive coronary artery disease status post recent heart catheterization that showed 20% stenosis of the proximal LAD and the mid RCA. 5. Remote history of atrial fibrillation currently in sinus rhythm. 6. Anxiety disorder with panic attack. 7. Irritable bowel syndrome with diarrhea. 8. Overactive bladder. 9. History of COPD. 10. GERD status post Maira fundoplication. 11. Chronic low back pain secondary to spondylosis of the lumbar spine status post multiple epidural injections as well as radio frequency ablation. 12. History of breast cancer status post left lumpectomy. Patient Condition at Discharge: Stable Plan - Discharge Summary Discharge Rx Participant: No New Discharge Prescriptions: No Action QUEtiapine [SEROquel] 25 mg PO HS FLUoxetine HCL [PROzac] 60 mg PO DAILY Atorvastatin Calcium [Lipitor] 40 mg PO DAILY Irbesartan/Hydrochlorothiazide [Avalide 150-12.5 mg Tablet] 1 tab PO DAILY Omeprazole 20 mg PO DAILY PRN PRN Reason: Heartburn Solifenacin Succinate [Vesicare] 10 mg PO HS Metoprolol Succinate [Toprol XL] 25 mg PO DAILY Acetaminophen Tab [Tylenol Tab] 1,000 mg PO Q6H PRN PRN Reason: Fever And/ Or Pain Clotrimazole/Betameth Cream [Lotrisone] 1 applic TOPICAL BID PRN PRN Reason: Rash busPIRone HCL [Buspar] 15 mg PO BID PRN PRN Reason: Anxiety Aspirin 81 mg PO ONCE PRN PRN Reason: did not feel well Nystatin 100,000 Unit/gm Powd [Mycostatin Powder] 1 applic TOPICAL BID PRN PRN Reason: Rash clonazePAM [KlonoPIN] 2 mg PO HS Discharge Medication List Atorvastatin Calcium [Lipitor] 40 mg PO DAILY 01/23/14 [History] FLUoxetine HCL [PROzac] 60 mg PO DAILY 01/23/14 [History] Irbesartan/Hydrochlorothiazide [Avalide 150-12.5 mg Tablet] 1 tab PO DAILY 01/23/14 [History] QUEtiapine [SEROquel] 25 mg PO HS 01/23/14 [History] Omeprazole 20 mg PO DAILY PRN 11/13/18 [History] Solifenacin Succinate [Vesicare] 10 mg PO HS 06/19/19 [History] Metoprolol Succinate [Toprol XL] 25 mg PO DAILY 09/27/19 [History] busPIRone HCL [Buspar] 15 mg PO BID PRN 12/02/21 [History] Aspirin 81 mg PO ONCE PRN 03/29/22 [History] Acetaminophen Tab [Tylenol Tab] 1,000 mg PO Q6H PRN 08/23/23 [History] Clotrimazole/Betameth Cream [Lotrisone] 1 applic TOPICAL BID PRN 08/23/23 [History] Nystatin 100,000 Unit/gm Powd [Mycostatin Powder] 1 applic TOPICAL BID PRN 08/23/23 [History] clonazePAM [KlonoPIN] 2 mg PO HS 08/23/23 [History] Follow up Appointment(s)/Referral(s): Sherice Arroyo MD [Primary Care Provider] - 1-2 days (Office is closed. Please call to schedule appointment)
== END 2023-08-24 19:37 | disposition home or self-care (01) | DRG 552 ==
LOC: EC 07:31 → 3SCARD 10:35
PROVIDERS: ADMIT Internal Medicine; ATTEND Internal Medicine
DX: M48.02 Spinal stenosis, cervical region (principal); Z68.41 Body mass index [BMI] 40.0-44.9, adult; R20.2 Paresthesia of skin; M50.30 Other cervical disc degeneration, unspecified cervical region; E66.01 Morbid (severe) obesity due to excess calories; G89.29 Other chronic pain; Z60.2 Problems related to living alone; M19.90 Unspecified osteoarthritis, unspecified site; R32 Unspecified urinary incontinence; Z87.01 Personal history of pneumonia (recurrent); Z85.828 Personal history of other malignant neoplasm of skin; E78.5 Hyperlipidemia, unspecified; F32.A Depression, unspecified; F41.0 Panic disorder [episodic paroxysmal anxiety]; G43.009 Migraine without aura, not intractable, without status migrainosus; J44.9 Chronic obstructive pulmonary disease, unspecified; K57.30 Diverticulosis of large intestine without perforation or abscess without bleeding; I11.9 Hypertensive heart disease without heart failure; I25.10 Atherosclerotic heart disease of native coronary artery without angina pectoris; I48.91 Unspecified atrial fibrillation; K21.9 Gastro-esophageal reflux disease without esophagitis; K58.0 Irritable bowel syndrome with diarrhea; M47.816 Spondylosis without myelopathy or radiculopathy, lumbar region; N32.81 Overactive bladder; Z79.82 Long term (current) use of aspirin; Z79.899 Other long term (current) drug therapy; Z82.49 Family history of ischemic heart disease and other diseases of the circulatory system; Z85.3 Personal history of malignant neoplasm of breast; Z92.3 Personal history of irradiation; Z96.653 Presence of artificial knee joint, bilateral; Z88.4 Allergy status to anesthetic agent; Z88.1 Allergy status to other antibiotic agents; Z88.5 Allergy status to narcotic agent; Z91.81 History of falling
CPT/HCPCS: 36415; 70450; 70551; 71046; 72125; 72141; 80053; 80061; 82550; 82607; 82746; 83036; 84443; 84484; 85025; 85610; 85730; 93005; 93306; 93880; 99285

== ENCOUNTER 2023-10-08 13:07 | Emergency (ER) | payer MEDICARE, OTHER ==
[2023-10-08 13:29] VITALS: BP 127/76; PULSE 59; RESP 16; TEMP 98
--- NOTE | 2023-10-08 13:53 | ED ---
Lower Extremity Injury HPI - General Chief Complaint: Extremity Injury, Lower Stated Complaint: fell R ankle injury Time Seen by Provider: 10/08/23 13:18 Source: patient, RN notes reviewed Mode of arrival: EMS Limitations: no limitations - History of Present Illness Initial Comments: This is a 73-year-old female who presents to the emergency department for right ankle pain. States that last night she tripped going up the stairs and injured her right foot and ankle. She had surgery on her right foot about a year ago and has had decreased sensation and weakness since, making her more likely to fall and lose her balance. She has had difficulty ambulating since the injury yesterday. Not currently taking anything for management of her pain. Denies hitting her head or sustaining any other injuries. MD Complaint: ankle injury, foot injury - Related Data Home Medications Medication Instructions Recorded Confirmed Atorvastatin Calcium [Lipitor] 40 mg PO DAILY 01/23/14 08/23/23 FLUoxetine HCL [PROzac] 60 mg PO DAILY 01/23/14 08/23/23 Irbesartan/Hydrochlorothiazide 1 tab PO DAILY 01/23/14 08/23/23 [Avalide 150-12.5 mg Tablet] QUEtiapine [SEROquel] 25 mg PO HS 01/23/14 08/23/23 Omeprazole 20 mg PO DAILY PRN 11/13/18 08/23/23 Solifenacin Succinate [Vesicare] 10 mg PO HS 06/19/19 08/23/23 Metoprolol Succinate [Toprol XL] 25 mg PO DAILY 09/27/19 08/23/23 busPIRone HCL [Buspar] 15 mg PO BID PRN 12/02/21 08/23/23 Aspirin 81 mg PO ONCE PRN 03/29/22 08/23/23 Acetaminophen Tab [Tylenol] 1,000 mg PO Q6H PRN 08/23/23 08/23/23 Clotrimazole/Betameth Cream 1 applic TOPICAL BID PRN 08/23/23 08/23/23 [Lotrisone] Nystatin 100,000 Unit/gm Powd 1 applic TOPICAL BID PRN 08/23/23 08/23/23 [Mycostatin Powder] clonazePAM [KlonoPIN] 2 mg PO HS 08/23/23 08/23/23 Previous Rx's Medication Instructions Recorded Aspirin 81 mg PO DAILY tab 08/24/23 Allergies Allergy/AdvReac Type Severity Reaction Status Date / Time erythromycin base Allergy Rash/Hives Verified 08/23/23 08:53 [Erythromycin Base] adhesive AdvReac EVEN PAPER Verified 08/23/23 08:53 TAPE CAUSES BLISTERS IF LEFT ON. hydrocodone bitartrate AdvReac Hallucinati Verified 08/23/23 08:53 [From Lortab] ons morphine AdvReac Hallucinati Verified 08/23/23 08:53 ons procaine [From Novocain] AdvReac passed out Verified 08/23/23 08:53 years ago after an injection in finger Review of Systems ROS Statement: Those systems with pertinent positive or pertinent negative responses have been documented in the HPI. ROS Other: All systems not noted in ROS Statement are negative. Past Medical History Past Medical History: Atrial Fibrillation, Cancer, COPD, GERD/Reflux, Hyperlipidemia, Hypertension, Memory Impairment, Osteoarthritis (OA), Pneumonia, Skin Disorder Additional Past Medical History / Comment(s): Basal cell skin cancer on her face status post radiation and skin graft, left breast cancer, chronic back pain, migraines, IBS, diverticulitis, urinary incontinence-wears depends when goes anywhere, states she tripped and fell at the drs office prior to kain, states recent MRI of brain- states she is getting forgetful and is falling more, supposed to have right foot surgery but was cancelled due to recent stress test History of Any Multi-Drug Resistant Organisms: None Reported Past Surgical History: Appendectomy, Breast Surgery, Heart Catheterization, Hy sterectomy, Joint Replacement, Orthopedic Surgery, Tonsillectomy Additional Past Surgical History / Comment(s): margarita Cataracts removed w/lens implant, skin graft to her face for basal cell cancer, pain clinic procedures, "esophageal wrap", left breast biopsy and left breast lumpectomy, margarita knee replacement. Tendon repair right foot 06/03/22 Past Anesthesia/Blood Transfusion Reactions: Previous Problems w/ Anesthesia Additional Past Anesthesia/Blood Transfusion Reaction / Comment(s): hallucinations. pt told drop in BP during surgery caused from taking her avalide am of procedure-told she should not take when getting anesthesia Past Psychological History: Anxiety, Depression Smoking Status: Former smoker Past Alcohol Use History: None Reported Past Drug Use History: None Reported - Past Family History Father Additional Family Medical History / Comment(s): Father at age 80 with previous history of myocardial infarction age 79 and status post AICD. Patient has 6 uncles on her father's side that had myocardial infarctions. Brother(s) Family Medical History: No Reported History Additional Family Medical History / Comment(s): . Daughter(s) Family Medical History: No Reported History Additional Family Medical History / Comment(s): . Mother Family Medical History: Deep Vein Thrombosis (DVT) Additional Family Medical History / Comment(s): . General Exam Limitations: no limitations General appearance: alert, in no apparent distress Head exam: Present: atraumatic, normocephalic, normal inspection Respiratory exam: Present: normal lung sounds bilaterally. Absent: respiratory distress, wheezes, rales, rhonchi, stridor Cardiovascular Exam: Present: regular rate, normal rhythm, normal heart sounds. Absent: systolic murmur, diastolic murmur, rubs, gallop, clicks Extremities exam: Present: other (Tenderness and swelling to the lateral aspect of the right ankle. 2+ DP and PT pulses. ) Neurological exam: Present: alert, oriented X3, CN II-XII intact Psychiatric exam: Present: normal affect, normal mood Course Vital Signs 10/08/23 13:10 Temperature 98 F Pulse Rate 59 L Respiratory 16 Rate Blood Pressure 127/76 O2 Sat by Pulse 95 Oximetry Medical Decision Making - Medical Decision Making This is a 73-year-old female who presents to the emergency department for a right ankle injury. Was pt. sent in by a medical professional or institution? @ -No Did you speak to anyone other than the patient for history? @ -No Did you review nursing and triage notes? @ -Yes, and I agree, it is accurate with regards to the patient's symptoms. Were old charts reviewed? @ -No Differential Diagnosis? @ -Differential Musculoskeletal: Muscular strain, contusion, ligament sprain, fracture, arthritis, septic arthritis, bursitis, cellulitis, muscle spasm, nerve compression, DVT, arterial occlusion, herpes zoster, electrolyte abnormality, tumor.... This is not meant to be in all inclusive list EKG interpreted by me (3pts min.)? @ -Not obtained X-rays interpreted by me (1pt min.)? @ -X-ray of the right foot and ankle obtained. My interpretation identifies no acute fractures. CT interpreted by me (1pt min.)? @ -Not obtained U/S interpreted by me (1pt. min.)? @ -Not obtained What testing was considered but not performed? (CT, X-rays, U/S, labs)? Why? @ -None What meds were considered but not given? Why? @ -None Did you discuss the management of the patient with other professionals? @ -No Did you reconcile home meds? @ -No Was smoking cessation discussed for >3mins.? @ -No Was critical care preformed (if so, how long)? @ -No Were there social determinants of health that impacted care today? How? (Homelessness, low income, unemployed, alcoholism, drug addiction, transportation, low edu. Level, literacy, decrease access to med. care, custodial, rehab)? @ -No Was there de-escalation of care discussed even if they declined? (Discuss DNR or withdrawal of care, Hospice)? @ -No What co-morbidities impacted this encounter? (DM, HTN, Smoking, COPD, CAD, Cancer, CVA, Hep., AIDS, mental health diagnosis, sleep apnea, morbid obesity)? @ -Osteoarthritis Was patient admitted / discharged? @ -Discharged. X-ray of the right foot and ankle obtained revealing no acute fractures. It identified soft tissue swelling without any other acute process. Advised that this is likely an ankle sprain. Tylenol administered for pain relief and she was given a Velcro stirrup splint for support. Advised ibuprofen and Tylenol as needed for pain relief at home as well as applying ice for 10-15 minutes every 2-3 hours for the first 2-3 days followed by heat thereafterwards. Patient discharged home in stable condition. Undiagnosed new problem with uncertain prognosis? @ -None Drug Therapy requiring intensive monitoring for toxicity (Heparin, Nitro, Insulin, Cardizem)? @ -None Were any procedures done? @ -None Diagnosis/symptom? @ -Right ankle sprain Acute, or Chronic, or Acute on Chronic? @ -Acute Uncomplicated (without systemic symptoms) or Complicated (systemic symptoms)? @ -Uncomplicated Side effects of treatment? @ -None Exacerbation, Progression, or Severe Exacerbation] @ -Not applicable Poses a threat to life or bodily function? @ -This may impact her ability to ambulate for the mean time. Return precautions reviewed in depth, the patient is instructed to return to the emergency department with any new, worsening, or concerning symptoms. Patient verbalized understanding. This case was discussed in detail with the attending ED physician, Dr. Thacker. Presentation, findings, and treatment plan discussed in detail as well. - Radiology Data Radiology results: report reviewed, image reviewed Disposition Clinical Impression: Right ankle sprain Disposition: HOME SELF-CARE Instructions (If sedation given, give patient instructions): Ankle Sprain (ED) Additional Instructions: Return to the emergency department with any new, worsening, or concerning symptoms. Alternate with ibuprofen and Tylenol as needed for pain relief. Apply ice for 10-15 minutes every 2-3 hours for the first 2-3 days followed by heat there afterwards. Follow up with your primary care provider in 1-2 days. Is patient prescribed a controlled substance at d/c from ED?: No Referrals: Sherice Arroyo MD [Primary Care Provider] - 1-2 days Time of Disposition: 14:51
--- NOTE | 2023-10-08 14:01 | XR ---
Right ankle HISTORY: Pain. COMPARISON: 06/05/2022. TECHNIQUE: 3 views of right ankle were obtained. FINDINGS: There are postsurgical changes of talocalcaneal fixation. The osseous structures are diffusely osteopenic. There is no acute fracture or dislocation. The ankle mortise is intact. There is marked soft tissue swelling over the lateral and medial malleoli. IMPRESSION: Marked soft tissue swelling but no acute fracture or dislocation.
--- NOTE | 2023-10-08 14:03 | XR ---
Right foot. HISTORY: Pain following trauma. COMPARISON: 11/18/2021. TECHNIQUE: 3 views of right foot were obtained. FINDINGS: There is mild to moderate osteopenia. There are postsurgical changes of metallic fixation of the talus and calcaneus. There is moderate osteoarthritic change of the first MTP joint. IMPRESSION: 1. No evidence of acute trauma. 2. Postsurgical changes involving the talus and calcaneus. 3. Moderate osteoarthritic change of the first MTP joint
[2023-10-08] MEDS ORDERED: ACETAMINOPHEN TAB 500 MG TAB PO STA (14:30)
== END 2023-10-08 15:06 | disposition home or self-care (01) ==
LOC: EC 13:07
DX: S93.401A Sprain of unspecified ligament of right ankle, initial encounter (principal); I48.91 Unspecified atrial fibrillation; I10 Essential (primary) hypertension; J44.9 Chronic obstructive pulmonary disease, unspecified; K21.9 Gastro-esophageal reflux disease without esophagitis; E78.5 Hyperlipidemia, unspecified; M19.90 Unspecified osteoarthritis, unspecified site; F41.9 Anxiety disorder, unspecified; F32.A Depression, unspecified; Z79.82 Long term (current) use of aspirin; Z79.899 Other long term (current) drug therapy; Z88.1 Allergy status to other antibiotic agents; Z88.4 Allergy status to anesthetic agent; Z88.5 Allergy status to narcotic agent; Z91.048 Other nonmedicinal substance allergy status; Z87.891 Personal history of nicotine dependence; W10.9XXA Fall (on) (from) unspecified stairs and steps, initial encounter
CPT/HCPCS: 99284

== ENCOUNTER → 2023-10-18 | Outpatient (CLI) | payer MEDICARE, OTHER ==
[2023-10-18 14:22] LABS: African American GFR (CKD) >90 (>60 ml/min/1.73 sqM); Blood Urea Nitrogen 19 mg/dL (7-17); Non-African American GFR(CKD) 83 (>60 ml/min/1.73 sqM)
--- NOTE | 2023-10-20 14:43 | CT ---
EXAMINATION TYPE: CT angio neck DATE OF EXAM: 10/18/2023 HISTORY: carotid stenosis, multiple falls, dizziness COMPARISON: None CT DLP: 378.1 mGycm. Automated Exposure Control for Dose Reduction was Utilized. TECHNIQUE: CTA scan of the neck is performed with IV Contrast, patient injected with 80ml mL of Isov ue 370, axial images are obtained, coronal and sagittal reformatted images are reviewed. Three-D valentín nstructed images are created on an independent workstation and reviewed. Source images are reviewed. FINDINGS: Carotid/Vascular Structures: There is a two-vessel arch with common origin of the innominate left com mon carotid artery. Common carotid arteries follow a somewhat medial course to the prevertebral space . Common carotid arteries bifurcate into internal and external carotid arteries without significant owen w limiting stenosis. There is tortuosity of the proximal right internal carotid artery. Tortuosity is also noted at the left internal coronary. Punctate calcification is in the proximal left internal ca rotid artery without stenosis. The left vertebral artery is dominant.. Internal carotid arteries and vertebral arteries are patent to the skull base. Cervical of [place]: Vertebral basilar system appears normal. Posterior cerebral vasculature is unrema rkable. Internal carotid arteries bifurcate normally into A1 and M1 segments. A2 segments are normal. The anterior communicating artery is patent. The right posterior communicating artery is patent. The left posterior communicating artery is absent. Other: IMPRESSION: 1. No flow-limiting stenosis bilateral carotid bifurcations. There is tortuosity of the bilateral int ernal carotid arteries. 2. Normal [place] of [place] NASCET criteria was used in interpretation of this exam?
== END | disposition home or self-care (01) ==
LOC: RADCTMAIN 13:22
PROVIDERS: ATTEND Internal Medicine
DX: I65.23 Occlusion and stenosis of bilateral carotid arteries (principal); R29.6 Repeated falls; R42 Dizziness and giddiness
CPT/HCPCS: 82565; 84520; 70498; 36415; Q9967

== ENCOUNTER → 2024-02-29 | Outpatient (CLI) | payer MEDICARE, OTHER ==
[2024-02-29 14:03] LABS: African American GFR (CKD) >90 (>60 ml/min/1.73 sqM); Blood Urea Nitrogen 16 mg/dL (7-17); Non-African American GFR(CKD) 83 (>60 ml/min/1.73 sqM)
--- NOTE | 2024-03-05 04:03 | CT ---
EXAMINATION TYPE: CT ChestAbdPelvis w con CT DLP: 2238.1 mGycm, Automated exposure control for dose reduction was used. DATE OF EXAM: 02/29/2024 3:18 PM COMPARISON: None. CLINICAL INDICATION:Female, 74 years old with history of R17 UNSPECIFIED JAUNDICE; PHH, UNSPECIFIED J AUNDICE TECHNIQUE: Multiple axial images of the chest, abdomen, and pelvis were obtained. Two-dimensional cor onal and sagittal reconstructions were obtained. Contrast used:100ml mL of Isovue 300 with IV Contrast, Oral contrast used: with Oral Contrast FINDINGS: CHEST: LUNGS/ PLEURA: Lungs show mild dependent atelectasis without focal airspace consolidation. No pleural effusion or pneumothorax. AIRWAY: Central airways are patent. LOWER NECK: No significant findings. MEDIASTINUM: No gross evidence of adenopathy. HEART: Mild to moderate cardiomegaly. Moderate coronary artery calcification and/or stents. No apprec iable pericardial effusion. VASCULATURE: Moderate atherosclerotic calcifications of the aorta and branches. Ascending aorta is 3 .4 CM, descending is 2.7 CM. Pulmonary trunk measures 2.8 CM. Pulmonary trunk is normal in size. Hortencia ssly preserved enhancement of the pulmonary arteries, in the limits of non-CTA exam. SOFT TISSUES/LYMPH NODES: Postoperative changes of the left breast with multiple surgical cesar see n. No body wall mass is identified. No enlarged axillary nodes. MUSCULOSKELETAL: No clearly acute osseous abnormality is in the scope of the exam. Moderate diffuse d egenerative changes. Grade 1 approaching grade 2 degenerative anterolisthesis L4 over L5. OTHER: No other significant finding. ABDOMEN PELVIS: ABDOMEN LIVER: Unremarkable GALLBLADDER AND BILE DUCTS: Gallbladder is nondistended without calcified gallstones evident. Biliary tree does not appear dilated on these views. There does however appear to be at least one small duod enal diverticulum in the region of the ampulla conceivably contribute to intermittent biliary obstruc tion. PANCREAS: Fatty infiltrated without acute finding. SPLEEN: Unremarkable. ADRENAL GLANDS: Mildly thickened, this can be seen with hyperplasia.. KIDNEYS AND URETERS: Kidneys enhance symmetrically. There is a 4.1 cm parapelvic cyst on the right. T iny hypodensity left upper kidney likely a cyst. No pericardial renal mass or hydronephrosis. PELVIS BLADDER: Unremarkable REPRODUCTIVE: Organs not seen, correlate with history ABDOMEN & PELVIS STOMACH AND BOWEL: Thickened appearing gastric wall, especially proximally. Duodenal sweep is patent. A few tiny duodenal diverticula suggested in the distal descending region. No evidence of bowel obst ruction. Appendix is not identified with certainty, however there is no inflammatory process seen in the RLQ. Possible small scattered diverticula without evidence of diverticulitis. PERITONEUM/RETROPERITONEUM: No evidence of pneumoperitoneum or free fluid. VASCULATURE: No evidence of aortic aneurysm. MUSCULOSKELETAL: No clearly acute osseous abnormality is in the scope of the exam. Moderate diffuse d egenerative changes. Grade 1 approaching grade 2 degenerative anterolisthesis L4 over L5. LYMPH NODES: No enlarged nodes by CT size criteria. There is a small to moderate-sized fat-containing hiatal hernia. SOFT TISSUES/ABDOMINAL WALL: Unremarkable OTHER: No other significant finding. IMPRESSION: 1. No evidence of mass or adenopathy. 2. Liver appears unremarkable by CT. 3. Gallbladder is nondistended and without evidence of pericholecystic inflammation. 4. The biliary tree does not appear to be dilated at this time. Please follow-up clinically with LFT s.
== END | disposition home or self-care (01) ==
LOC: RADCTMAIN 13:09
PROVIDERS: ATTEND Internal Medicine
DX: R17 Unspecified jaundice (principal)
CPT/HCPCS: 82565; 84520; 71260; 74177; 36415; Q9967

== ENCOUNTER → 2024-04-10 | Outpatient (CLI) | payer MEDICARE, OTHER ==
[2024-04-10 10:28] VITALS: BP 108/73; PULSE 56; RESP 16; TEMP 96.9
--- NOTE | 2024-04-10 14:08 | P.PAINPG ---
PQRS Measure Charge Sheet Comment: HISTORY OF PRESENT ILLNESS: A 74 yr old female w male advanced developer at side as a referral from Dr Arroyo presents today w severe and chronic secondary to DDD, spondylosis and facet arthropathy without myelopathy for evaluation. Pt underwent a BL RFA of the L3-L4/ L4-L5/ L5-S1 in 2018 and experienced 75% pain relief x 2 yrs s/p procedure. Pt states pain level is provoked at 9 /10 in intensity, constant, localized in the lumbar spine, predominantly axial, throbbing in character w occasional shooting pain towards the hips. Pain is provoked by standing/ walking for periods > 10 min. Pain is alleviated by PT x 6 wks which ended in 2022 (cervical), physician guided home stretches daily since Spring 2022 (cervical), medications (Tyl, Baclofen), repositioning and rest . She is wheelchair bound, her ins doesn't cover medical visit transportation and has no social network for transportation to PT facilities. Oswestry axial pain score at 38. PMH: OA, aFib, L Breast CA, Facial Basal Skin CA, COPD, GERD, Hyperlipidemia, HTN, IBS, Diverticulitis, Vitamin D Deficiency, MDD/ Anxiety PSH: BL RFA L2-L5 (2013, 2018), SOFIE L5-S1 (2018), Appendectomy, L Breast Lumpectomy, Heart Catheterization, Hysterectomy, BL Knee Replacement, R Foot Tendon Repair (2021), Tonsillectomy, BL Cataract Extraction w Implant SH: Former tobacco user, No ETOH use, No illicit drug use FH: Fa- MS/ at age 78. Br- No Reported History. Michael- No Reported History. Mo- DVT All: See list Meds: See list REVIEW OF ORGAN SYSTEMS: CONSTITUTIONAL: No fevers or chills. No recent weight loss. NEUROLOGICAL: + numbness and tingling along the distal extremities. No seizure disorders or headaches. MUSCULOSKELETAL: + pain PSYCHIATRIC: Denies current depression or suicidal thoughts. Physical Examinations : Constitutional : Cooperative , not in acute distress . Neurologic : Cranial nerve II to XII intact. No focal neurological deficits. Psychiatric : alert & oriented x 3. Matching mood & appropriate affect. Judgment & insight intact. Musculoskeletal : Cervical Spine Motor strength in the deltoid and biceps: Normal right side. Normal Left side Motor strength biceps and the wrist extensors: Normal right side . Normal left side Motor strength in the triceps muscle: Normal right side. Normal left side Deep tendon reflexes: Normal at the biceps. Normal at Brachioradialis. Normal at triceps Vertebral body tenderness to deep palpation over Cervical facet loading test: positive bilaterally Spurling test: positive bilaterally Neck distraction test: positive bilaterally Kings sign: positive bilaterally Lumbar spine Motor strength lower extremities ,thigh and legs 5/5 Right side , 5/5 Left side Deep tendon reflexes : Normal Knee Jerk. Normal Ankle Jerk Vertebral body tenderness over L5 Turpin Test positive Lumbar facet Loading Test: positive Right / positive Left L4-L5, L5-S1 Range of motion of the lumbar spine Flexion 30 degrees, extension 10 degrees Straight Leg Raise test: Left/ Right positive at degrees Em test: positive right / positive left. Severe tenderness over the Sacroiliac joint on the Right / Left sides Gaenslen test: positive bilaterally Seated flexion test: positive bilaterally. Sacral spine : Severe tenderness over the Sacroiliac joint: right side / left side Range of motion: Flexion of the lumbar spine <60 degrees Range of motion: Extension of the lumbar spine <20 degrees Gaenslen's Test positive Em test: positive right side / left side Thigh Thrust Test Sacral Thrust Test Imaging: None on file Assessment/ Plan : Lumbar radiculopathy, Lumbar DDD Recommendation of lumbar x ray M54.16. May need additional imaging if indicated. Physiciian guided home exercise/ stretching regimen documentation provided. All questions answered. I have spent greater than 30 minutes on patient care today. Dr Burger was available by phone for the evaluation of this patient. The time was used to review the medical records including relevant urine studies and Prescription history (MAPs), review of the available imaging, evaluation and examination of the patient, coordination of care with the medical staff and if applicable referring physicians, as well as creation of the medical record PQRS Narrative: Smoking Status Former smoker Hx Alcohol Use (MH) No Home Medications: Ambulatory Orders Atorvastatin Calcium [Lipitor] 40 mg PO DAILY 01/23/14 FLUoxetine HCL [PROzac] 60 mg PO DAILY 01/23/14 Irbesartan/Hydrochlorothiazide [Avalide 150-12.5 mg Tablet] 1 tab PO DAILY 01/23/14 QUEtiapine [SEROquel] 25 mg PO HS 01/23/14 Omeprazole 20 mg PO DAILY PRN 11/13/18 Solifenacin Succinate [Vesicare] 10 mg PO HS 06/19/19 Metoprolol Succinate [Toprol XL] 25 mg PO DAILY 09/27/19 busPIRone HCL [Buspar] 15 mg PO BID PRN 12/02/21 Aspirin 81 mg PO ONCE PRN 03/29/22 Acetaminophen Tab [Tylenol] 1,000 mg PO Q6H PRN 08/23/23 Clotrimazole/Betameth Cream [Lotrisone] 1 applic TOPICAL BID PRN 08/23/23 Nystatin 100,000 Unit/gm Powd [Mycostatin Powder] 1 applic TOPICAL BID PRN 08/23/23 clonazePAM [KlonoPIN] 2 mg PO HS 08/23/23 Aspirin 81 mg PO DAILY tab 08/24/23 Controlled Substance Measures - Controlled Substance Measures Is patient prescribed a controlled substance at discharge?: No
== END ==
LOC: PNWHC3 09:06
PROVIDERS: ATTEND Specialist
DX: M51.17 Intervertebral disc disorders with radiculopathy, lumbosacral region (principal); M47.27 Other spondylosis with radiculopathy, lumbosacral region; Z87.891 Personal history of nicotine dependence; Z88.1 Allergy status to other antibiotic agents; Z91.048 Other nonmedicinal substance allergy status; Z88.5 Allergy status to narcotic agent; Z88.8 Allergy status to other drugs, medicaments and biological substances
CPT/HCPCS: 99211

== ENCOUNTER → 2024-11-26 | Outpatient (CLI) | payer MEDICARE, OTHER ==
--- NOTE | 2024-11-27 09:42 | MM ---
Reason for Exam: Screening (asymptomatic). Last mammogram was performed 2 year(s) and 1 month(s) ago. Patient History: Menarche at age 10. First Full-Term at age 18. Left ovary removed at age 33. Right ovary removed at age 33. Hysterectomy at age 33. Postmenopausal. Breast cancer, left, age 64. Previous chest radiation therapy. Estrogen for 22 years from age 33 until age 54. 11/03/2014, Malignant Core Biopsy on the left side. 10/24/2014, Malignant Core Biopsy on the left side. Radiation Therapy. Prior Study Comparison: 08/09/2019 Bilateral Diagnostic Mammogram, [facility]. 08/20/2020 Bilateral MG screening mammo w CAD - 2, [facility]. 11/02/2022 Bilateral MG 3D diag mammo w/cad PARISA, [facility]. Tissue Density: There are scattered areas of fibroglandular density. Findings: Analyzed By CAD. There is no suspicious group of microcalcifications or new suspicious mass in either breast. Postoperative distortion is stable. Overall Assessment: Benign, BI-RAD 2 Management: Screening Mammogram of both breasts in 1 year. . Patient should continue monthly self-breast exams. A clinical breast exam by your physician is recommended on an annual basis. This exam should not preclude additional follow-up of suspicious palpable abnormalities. Note on Gema scores and lifetime risk: 1. A Gema score greater than 3% is considered moderate risk. If this is the case, consider specialist referral to assess eligibility for a risk reducing agent. 2. If overall lifetime risk for the development of breast cancer is 20% or higher, the patient may qualify for future screening with alternating mammogram and breast MRI. [facility], , 11/27/2024 9:39 AM. Electronically signed and approved by: John Martínez M.D. Radiologis
== END | disposition home or self-care (01) ==
LOC: RADMAMWWP 14:20
PROVIDERS: ATTEND Internal Medicine
DX: Z12.31 Encounter for screening mammogram for malignant neoplasm of breast (principal); R92.323 Mammographic fibroglandular density, bilateral breasts; Z78.0 Asymptomatic menopausal state; Z85.3 Personal history of malignant neoplasm of breast
CPT/HCPCS: 77063; 77067

== ENCOUNTER → 2024-11-28 | Outpatient (CLI) | payer MEDICARE, OTHER ==
--- NOTE | 2024-11-28 14:59 | US ---
EXAMINATION TYPE: US carotid duplex BILAT DATE OF EXAM: 11/28/2024 COMPARISON: NONE CLINICAL INDICATION: Female, 74 years old with history of I65.23 CAROTID STENOSIS; Prior smoker. Evelynd emerson diabetic. Hx hypertension and hyperlipidemia. Additional History: .... TECHNIQUE: Grayscale, color Doppler and spectral Doppler evaluation of the bilateral carotid systems and vertebral arteries. Indirect Doppler criteria was utilized. FINDINGS: EXAM MEASUREMENTS: RIGHT: Peak Systolic Velocity (PSV) cm/sec ----- Right CCA: 70.3 ----- Right ICA: 176.6 ----- Right ECA: 56.6 ICA/CCA ratio: 2.5 RIGHT: End Diastole cm/sec ----- Right CCA: 10.1 ----- Right ICA: 36.7 ----- Right ECA: 9.5 LEFT: Peak Systolic Velocity (PSV) cm/sec ----- Left CCA: 68.6 ----- Left ICA: 146.3 ----- Left ECA: 73.8 ICA/CCA ratio: 2.1 LEFT: End Diastole cm/sec ----- Left CCA: 11.0 ----- Left ICA: 38.1 ----- Left ECA: 10.1 VERTEBRALS (direction of flow): Right Vertebral: Antegrade Left Vertebral: Antegrade Rhythm: Normal HEMODIALYSIS TECHNICIAN NOTES: ICA is very tortuous bilaterally. High bifurcations limiting exam. What appears to be the mid and distal right ICA were imaged and velocities taken. *Plaque seen bilateral bulbs. El evated velocities within bilateral ICAs. Elevated ratios bilaterally. IMPRESSION: Hemodynamically significant stenoses of bowel present bilaterally likely between 50 and 6 9 %. Consider further investigation with CTA neck to better evaluate and characterize. Criteria for Assigning % of Stenosis / Diameter reduction (Estimation based on the indirect measurements of the internal carotid artery velocities (ICA PSV). 1. Normal (no stenosis)=ICA PSV < 125 cm/s: ratio < 2.0: ICA EDV<40 cm/s. 2. Less than 50% stenosis=ICA PSV < 125 cm/s: ratio < 2.0: ICA EDV<40 cm/s. 3. 50 to 69% stenosis=ICA PSV of 125 to 230 cm/s: ration 2.0 ? 4.0: ICA EDV 40-100 cm/s. 4. Greater than 70% stenosis to near occlusion= ICA PSV > 230 cm/s: ratio > 4.0: ICA EDV > 100 cm/s. 5. Near occlusion= ICA PSV velocities may be low or undetectable: variable ratio and ICA EDV. 6. Total occlusion=unable to detect flow. [facility], , 11/28/2024 2:56 PM
--- NOTE | 2024-11-29 08:43 | BD ---
EXAMINATION TYPE: Axial Bone Density DATE OF EXAM: 11/28/2024 CLINICAL HISTORY: 74 years old Female. ICD-10 CODE: M85.851 OTH DISRD OF BONE DENSITY AND STRUCTURE, R , Additional History: Height: 62 Weight: 250 FRAX RISK QUESTIONS: Alcohol (3 or more units per day): no Family History (Parent hip fracture): mother Glucocorticoids (More than 3mos): no (Ex: prednisone, prednisolone, methylprednisolone, dexamethasone, and hydrocortisone). History of Fracture in Adulthood: yes, elbow x2 Secondary Osteoporosis: 1. Type 1 Diabetes: no 2. Hyperthyroidism: no 3. Menopause before 45: yes 4. Malnutrition: no 5. Chronic liver disease: no Rheumatoid Arthritis: no Current Tobacco Use: no RISK FACTORS HISTORY OF: Hip Fracture (Right/Left): no Spine Fracture: no History of Wrist Fracture: no Surgery to Spine/Hip(right/left)/Wrist (right/left): no MEDICATIONS: Thyroid Medications: no Osteoporosis Medications: EXAM MEASUREMENTS: Bone mineral densitometry was performed using the MYR System. Bone mineral density as measured about the Lumbar spine is: ----- L1-L4(G/cm2): 1.226 T Score Values are as follows: ----- L1: -0.6 ----- L2: 0.9 ----- L3: 0.3 ----- L4: 0.8 ----- L1-L4: 0.4 Z Score Values are as follows: ----- L1: 0.0 ----- L2: 1.5 ----- L3: 0.9 ----- L4: 1.4 ----- L1-L4: 1.0 Bone mineral density has: increased 9.9 % since study of: 08/29/2017 Bone mineral density about the R hip (g/cm2): 0.775 Bone mineral density about the L hip (g/cm2): 0.896 T Score values are as follows: -----R Neck: -1.8 -----L Neck: -1.7 -----R Total: -1.8 -----L Total: -0.9 Z Score values are as follows: -----R Neck: -0.6 -----L Neck: -0.5 -----R Total: -0.9 -----L Total: 0.1 Bone mineral density has: decreased -6.8/ % since study of: 08/29/2017 FRAX%s: The graph provided illustrates a 38.9*% chance for a major osteoporotic fx and a 22.6% chance for the hips probability for fx in 10 years time. IMPRESSION: Osteopenia (T Score between -2.5 and -1). There is slightly increased risk of fracture and the patient may be considered for treatment. Re-Screen 2-5 years. NOTE: T-SCORE=SD OF THE YOUNG ADULT MEAN. [facility], , 11/29/2024 8:40 AM
== END | disposition home or self-care (01) ==
LOC: RADBDWWP 13:39
PROVIDERS: ATTEND Internal Medicine
DX: I65.23 Occlusion and stenosis of bilateral carotid arteries (principal); M85.89 Other specified disorders of bone density and structure, multiple sites; Z78.0 Asymptomatic menopausal state
CPT/HCPCS: 77080; 93880

== ENCOUNTER 2024-12-10 16:19 | Emergency (ER) | payer MEDICARE, OTHER ==
[2024-12-10 16:25] VITALS: TEMP 97.6
--- NOTE | 2024-12-10 16:44 | ED ---
Recheck HPI - General Source: patient, RN notes reviewed Mode of arrival: wheelchair Limitations: no limitations <Austin Crawford - Last Filed: 12/10/24 16:43> <Cydney Ferrell - Last Filed: 12/10/24 19:59> - General Chief Complaint: Recheck/Abnormal Lab/Rx Stated Complaint: potassium high Time Seen by Provider: 12/10/24 16:37 - History of Present Illness Initial Comments: Quick note: This is a 74-year-old female presenting with for elevated potassium. Patient states that she was sent to ER by Dr. Arroyo after discovery of elevated potassium following preimaging blood work. Patient denies any current symptoms. Endorses dizziness, palpitations and wheezing last week. Denies significant cardiac history (Austin Crawford) This is a 74-year-old female presenting to the emergency department for complaint of abnormal labs. Patient states that she was scheduled for a outpati ent CT scan of her carotid arteries for further evaluation of carotid artery stenosis where lab testing was ordered concerning for hyperkalemia. Patient's potassium was noted to be 6.1. Patient admits PCP was notified of elevated potassium where prescription was sent for lokelema, however this was unavailable at the pharmacy and PCP advised patient went to the emergency department for further evaluation. She is denying chest pain, heart palpitations, dizziness, lightheadedness, peripheral edema. Denies history of hyperkalemia. Overall states that she is feeling well. (Cydney Ferrell) - Related Data Home Medications Medication Instructions Recorded Confirmed Atorvastatin Calcium [Lipitor] 40 mg PO DAILY 01/23/14 12/10/24 FLUoxetine HCL [PROzac] 60 mg PO DAILY 01/23/14 12/10/24 Irbesartan/Hydrochlorothiazide 1 tab PO DAILY 01/23/14 12/10/24 [Avalide 150-12.5 mg Tablet] QUEtiapine [SEROquel] 25 mg PO HS 01/23/14 12/10/24 Omeprazole 20 mg PO DAILY PRN 11/13/18 12/10/24 Solifenacin Succinate [Vesicare] 10 mg PO HS 06/19/19 12/10/24 Metoprolol Succinate [Toprol XL] 25 mg PO DAILY 09/27/19 12/10/24 Acetaminophen Tab [Tylenol] 500 mg PO DAILY 08/23/23 12/10/24 clonazePAM [KlonoPIN] 2 mg PO HS 08/23/23 12/10/24 Albuterol Sulfate [Albuterol 2 puff INHALATION RT-Q4H PRN 12/10/24 12/10/24 Sulfate Hfa] Aspirin EC [Ecotrin Low Dose] 81 mg PO DAILY 12/10/24 12/10/24 Baclofen 5 mg PO BID PRN 12/10/24 12/10/24 Cholecalciferol (Vitamin D3) 50 mcg PO DAILY 12/10/24 12/10/24 [Vitamin D3 (50 Mcg = 2000 Iu)] Cyanocobalamin (Vitamin B-12) 1,000 mcg PO DAILY 12/10/24 12/10/24 [Vitamin B-12] Multivitamins, Thera [Multivitamin 1 tab PO DAILY 12/10/24 12/10/24 (formulary)] Nystatin 100,000 Unit/gm Powd 1 applic TOPICAL HS 12/10/24 12/10/24 [Mycostatin Powder] busPIRone HCL 15 mg PO BID PRN 12/10/24 12/10/24 Allergies Allergy/AdvReac Type Severity Reaction Status Date / Time erythromycin base Allergy Rash/Hives Verified 12/10/24 18:09 [Erythromycin Base] adhesive AdvReac EVEN PAPER Verified 12/10/24 18:09 TAPE CAUSES BLISTERS IF LEFT ON. hydrocodone bitartrate AdvReac Hallucinati Verified 12/10/24 18:09 [From Lortab] ons morphine AdvReac Hallucinati Verified 12/10/24 18:09 ons procaine [From Novocain] AdvReac passed out Verified 12/10/24 18:09 years ago after an injection in finger Review of Systems ROS Other: All systems not noted in ROS Statement are negative. <Austin Crawford - Last Filed: 12/10/24 16:43> ROS Other: All systems not noted in ROS Statement are negative. <Cydney Ferrell - Last Filed: 12/10/24 19:59> ROS Statement: Those systems with pertinent positive or pertinent negative responses have been documented in the HPI. Past Medical History Past Medical History: Atrial Fibrillation, Cancer, COPD, GERD/Reflux, Hyperlipidemia, Hypertension, Memory Impairment, Osteoarthritis (OA), Pneumonia, Skin Disorder Additional Past Medical History / Comment(s): Basal cell skin cancer on her face status post radiation and skin graft, left breast cancer, chronic back pain, migraines, IBS, diverticulitis, urinary incontinence-wears depends when goes anywhere, states she tripped and fell at the [facility] office prior to , states recent MRI of brain- states she is getting forgetful and is falling more, supposed to have right foot surgery but was cancelled due to recent stress test History of Any Multi-Drug Resistant Organisms: None Reported Past Surgical History: Appendectomy, Breast Surgery, Heart Catheterization, Hysterectomy, Joint Replacement, Orthopedic Surgery, Tonsillectomy Additional Past Surgical History / Comment(s): margarita Cataracts removed w/lens implant, skin graft to her face for basal cell cancer, pain clinic procedures, "esophageal wrap", left breast biopsy and left breast lumpectomy, margarita knee replacement. Tendon repair right foot 06/03/22 Past Anesthesia/Blood Transfusion Reactions: Previous Problems w/ Anesthesia Additional Past Anesthesia/Blood Transfusion Reaction / Comment(s): hallucinations. pt told drop in BP during surgery caused from taking her avalide am of procedure-told she should not take when getting anesthesia Past Psychological History: Anxiety, Depression Smoking Status: Former smoker Past Alcohol Use History: None Reported Past Drug Use History: None Reported - Past Family History Father Additional Family Medical History / Comment(s): Father at age 80 with previous history of myocardial infarction age 79 and status post AICD. Patient has 6 uncles on her father's side that had myocardial infarctions. Brother(s) Family Medical History: No Reported History Additional Family Medical History / Comment(s): . Daughter(s) Family Medical History: No Reported History Additional Family Medical History / Comment(s): . Mother Family Medical History: Deep Vein Thrombosis (DVT) Additional Family Medical History / Comment(s): . <Austin Crawford - Last Filed: 12/10/24 16:43> General Exam Limitations: no limitations <Austin Crawford - Last Filed: 12/10/24 16:43> Neck exam: Present: normal inspection. Absent: tenderness, meningismus, lymphad enopathy Respiratory exam: Present: normal lung sounds bilaterally. Absent: respiratory distress, wheezes, rales, rhonchi, stridor Cardiovascular Exam: Present: regular rate, normal rhythm, normal heart sounds. Absent: systolic murmur, diastolic murmur, rubs, gallop, clicks GI/Abdominal exam: Present: soft, normal bowel sounds. Absent: distended, tenderness, guarding, rebound, rigid Extremities exam: Present: normal inspection, full ROM, normal capillary refill. Absent: tenderness, pedal edema, joint swelling, calf tenderness Back exam: Present: normal inspection. Absent: CVA tenderness (R), CVA tenderness (L) <Cydney Ferrell - Last Filed: 12/10/24 19:59> - General Exam Comments Initial Comments: Visual Physical Exam Vital signs reviewed General: Well-appearing, nontoxic, no acute distress. Head: Normocephalic, atraumatic Eyes: PERRLA, EOMI ENT: Airway patent Chest: Nonlabored breathing Skin: No visual rash, normal skin tone Neuro: Alert and oriented 3 Musculoskeletal: No gross abnormalities (Austin Crawford) Course Vital Signs 12/10/24 12/10/24 16:23 19:03 Temperature 97.6 F Pulse Rate 56 L 57 L Respiratory 18 20 Rate Blood Pressure 149/74 139/67 O2 Sat by Pulse 93 L 100 Oximetry Medical Decision Making <Austin Crawford - Last Filed: 12/10/24 16:43> - Lab Data Result diagrams: 12/10/24 18:05 12/10/24 18:05 <Cydney Ferrell - Last Filed: 12/10/24 19:59> - Medical Decision Making I completed the quick note portion of this chart signed ERUM Nguyen (Austin Crawford) Was pt. sent in by a medical professional or institution (BRUCE Frederick, ELECTRONIC GAMING DEVICE SUPERVISOR, urgent care, hospital, or longterm...) When possible be specific @ -No Did you speak to anyone other than the patient for history (EMS, parent, family, police, friend...)? What history was obtained from this source @ -No Did you review nursing and triage notes (agree or disagree)? Why? @ -I reviewed and agree with nursing and triage notes Were old charts reviewed (outside hosp., previous admission, EMS record, old EKG, old radiological studies, urgent care reports/EKG's, longterm records)? Report findings @ -No old charts were reviewed Differential Diagnosis (chest pain, altered mental status, abdominal pain women, abdominal pain men, vaginal bleeding, weakness, fever, dyspnea, syncope, headache, dizziness, GI bleed, back pain, seizure, CVA, palpatations, mental health, musculoskeletal)? @ -Hyperkalemia, hypomagnesemia, electrolyte abnormality, this list is not all inclusive EKG interpreted by me (3pts min.). @ -Completed at 1654 sinus bradycardia with a ventricular to 56, DE interval 130, QRS 85, QTc 430. X-rays interpreted by me (1pt min.). @ -None done CT interpreted by me (1pt min.). @ -None done U/S interpreted by me (1pt. min.). @ -None done What testing was considered but not performed or refused? (CT, X-rays, U/S, labs)? Why? @ -None What meds were considered but not given or refused? Why? @ -None Did you discuss the management of the patient with other professionals (professionals i.e. , PA, ELECTRONIC GAMING DEVICE SUPERVISOR, lab, RT, psych nurse, medical social worker, fluid jet cutter operator, teacher, property and supply officer, outsole caser)? Give summary @ -No Was smoking cessation discussed for >3mins.? @ -No Was critical care preformed (if so, how long)? @ -No Were there social determinants of health that impacted care today? How? (Homelessness, low income, unemployed, alcoholism, drug addiction, transportation, low edu. Level, literacy, decrease access to med. care, fdc, r ehab)? @ -No Was there de-escalation of care discussed even if they declined (Discuss DNR or withdrawal of care, Hospice)? DNR status @ -No What co-morbidities impacted this encounter? (DM, HTN, Smoking, COPD, CAD, Cancer, CVA, ARF, Chemo, Hep., AIDS, mental health diagnosis, sleep apnea, morbid obesity)? @ -None Was patient admitted / discharged? Hospital course, mention meds given and route, prescriptions, significant lab abnormalities, going to OR and other pertinent info. @ -Discharge. 74 year old female presents emergency department with outpatient lab of hyperkalemia. Patient is well-appearing. Initial vitals are stable. EKG sinus rhythm. Patient's laboratory testing reveals a potassium of 4.2. Sodium 133. Patient is stable for discharge. Case discussed with Dr. Oneil Undiagnosed new problem with uncertain prognosis? @ -No Drug Therapy requiring intensive monitoring for toxicity (Heparin, Nitro, Insulin, Cardizem)? @ -No Were any procedures done? @ -No Diagnosis/symptom? @ -history of hyperkalemia Acute, or Chronic, or Acute on Chronic? @ -acute Uncomplicated (without systemic symptoms) or Complicated (systemic symptoms)? @ -uncomplicated Side effects of treatment? @ -No Exacerbation, Progression, or Severe Exacerbation? @ -No Poses a threat to life or bodily function? How? (Chest pain, [place], [place], pneumonia, PE, COPD, DKA, ARF, appy, cholecystitis, CVA, Diverticulitis, Homicidal, Suicidal, threat to staff... and all critical care pts) @ -No (Cydney Ferrell) - Lab Data Lab Results 12/10/24 12/10/24 Range/Units 18:05 18:05 WBC 6.2 (3.8-10.6) k/uL RBC 4.04 (3.80-5.40) m/uL Hgb 13.4 (11.4-16.0) gm/dL Hct 41.1 (34.0-46.0) % MCV 101.7 H (80.0-100.0) fL MCH 33.2 (25.0-35.0) pg MCHC 32.6 (31.0-37.0) g/dL RDW 12.8 (11.5-15.5) % Plt Count 224 (150-450) k/uL MPV 8.3 Neutrophils % 68 % Lymphocytes % 24 % Monocytes % 5 % Eosinophils % 2 % Basophils % 0 % Neutrophils # 4.2 (1.3-7.7) k/uL Lymphocytes # 1.5 (1.0-4.8) k/uL Monocytes # 0.3 (0-1.0) k/uL Eosinophils # 0.1 (0-0.7) k/uL Basophils # 0.0 (0-0.2) k/uL Macrocytosis Slight Sodium 133 L (137-145) mmol/L Potassium 4.2 (3.5-5.1) mmol/L Chloride 96 L (98-107) mmol/L Carbon Dioxide 30 (22-30) mmol/L Anion Gap 7 mmol/L BUN 12 (7-17) mg/dL Creatinine 0.66 (0.52-1.04) mg/dL Est GFR (CKD-EPI)AfAm >90 (>60 ml/min/1.73 sqM) Est GFR (CKD-EPI)NonAf 86 (>60 ml/min/1.73 sqM) Glucose 109 H (74-99) mg/dL Calcium 10.0 (8.4-10.2) mg/dL Magnesium 1.9 (1.6-2.3) mg/dL Total Bilirubin 1.0 (0.2-1.3) mg/dL AST 19 (14-36) U/L ALT 16 (4-34) U/L Alkaline Phosphatase 83 (38-126) U/L Total Protein 7.1 (6.3-8.2) g/dL Albumin 4.2 (3.5-5.0) g/dL Disposition <Austin Crawford - Last Filed: 12/10/24 16:43> Is patient prescribed a controlled substance at d/c from ED?: No Time of Disposition: 18:25 <Cydney Ferrell - Last Filed: 12/10/24 19:59> Clinical Impression: History of hyperkalemia Disposition: HOME SELF-CARE Condition: Good Instructions (If sedation given, give patient instructions): Hyperkalemia (ED) Additional Instructions: Please return to the Emergency Department if symptoms worsen or any other concerns. Referrals: Sherice Arroyo MD [Primary Care Provider] - 1-2 days
[2024-12-10 18:10] LABS: Basophils % (A) 0 %; Eosinophils # (A) 0.1 k/uL (0-0.7); Eosinophils % (A) 2 %; HCT 41.1 % (34.0-46.0); HGB 13.4 gm/dL (11.4-16.0); Lymphocytes # (A) 1.5 k/uL (1.0-4.8); Lymphocytes % (A) 24 %; MCH 33.2 pg (25.0-35.0); MCHC 32.6 g/dL (31.0-37.0); MCV 101.7 fL (80.0-100.0); Macrocytosis Slight; Mean Platelet Volume 8.3; Monocytes # (A) 0.3 k/uL (0-1.0); Monocytes % (A) 5 %; Neutrophils # (A) 4.2 k/uL (1.3-7.7); Neutrophils % (A) 68 %; Platelet Count 224 k/uL (150-450); RBC 4.04 m/uL (3.80-5.40); RDW 12.8 % (11.5-15.5); WBC 6.2 k/uL (3.8-10.6)
[2024-12-10 18:23] LABS: ALT 16 U/L (4-34); AST 19 U/L (14-36); African American GFR (CKD) >90 (>60 ml/min/1.73 sqM); Albumin 4.2 g/dL (3.5-5.0); Alkaline Phosphatase 83 U/L (38-126); Anion Gap 7 mmol/L; Blood Urea Nitrogen 12 mg/dL (7-17); Carbon Dioxide 30 mmol/L (22-30); Chloride 96 mmol/L (98-107); Glucose 109 mg/dL (74-99); Magnesium 1.9 mg/dL (1.6-2.3); Non-African American GFR(CKD) 86 (>60 ml/min/1.73 sqM); Potassium 4.2 mmol/L (3.5-5.1); Sodium 133 mmol/L (137-145); Total Protein 7.1 g/dL (6.3-8.2)
[2024-12-10 19:05] VITALS: BP 139/67; PULSE 57; RESP 20
== END 2024-12-10 19:05 | disposition home or self-care (01) ==
LOC: EC 16:19
DX: E87.5 Hyperkalemia (principal); Z87.891 Personal history of nicotine dependence; Z88.5 Allergy status to narcotic agent; Z88.1 Allergy status to other antibiotic agents; Z88.8 Allergy status to other drugs, medicaments and biological substances
CPT/HCPCS: 36415; 80053; 83735; 85025; 93005; 99285

== ENCOUNTER → 2024-12-26 | Outpatient (CLI) | payer MEDICARE, OTHER ==
[2024-12-10 14:24] LABS: African American GFR (CKD) >90 (>60 ml/min/1.73 sqM); Anion Gap 5 mmol/L; Blood Urea Nitrogen 13 mg/dL (7-17); Calcium 9.7 mg/dL (8.4-10.2); Carbon Dioxide 28 mmol/L (22-30); Chloride 99 mmol/L (98-107); Non-African American GFR(CKD) 85 (>60 ml/min/1.73 sqM); Sodium 132 mmol/L (137-145)
[2024-12-10 14:35] LABS: Glucose 100 mg/dL (74-99); Potassium 6.1 mmol/L (3.5-5.1)
[2024-12-10 20:25] LABS: Immunoglobulin M <35.0 mg/dL (40.0-280.0)
--- NOTE | 2024-12-26 15:38 | CT ---
EXAMINATION TYPE: CT angio head neck DATE OF EXAM: 12/26/2024 COMPARISON: 10/18/2023 CLINICAL INDICATION: Female, 74 years old with history of I65.23 CAROTID STENOSIS, R77.1, I10 I34.0; PHH, carotid stenosis TECHNIQUE: CTA scan of the head and neck is performed without and with IV Contrast, patient injected with 100 ML mL of Isovue 370, axial images are obtained, coronal and sagittal reformatted images are reviewed. 3D reconstructed images are created on an independent workstation and reviewed. CT DLP: 1513.[address] CTDI: mGy Automated exposure control for dose reduction was used. NASCET criteria was used in interpretation of this exam? FINDINGS: The brachiocephalic origins are widely patent and no significant stenosis. The internal carotid arteries are markedly tortuous but there is no significant stenosis. There is mi nimal plaque formation. There is no stenosis of the vertebral arteries. Intracranially, there is no stenosis, segmental occlusion, sizable aneurysm sac or vascular malformat ion. IMPRESSION:. 1. No significant stenosis of the brachiocephalic origins, common or internal carotid arteries within the neck. 2. No segmental occlusion, aneurysm sac or vascular malformation intracranially. NASCET criteria was used in interpretation of this exam? [facility], , 12/26/2024 3:35 PM
--- NOTE | 2024-12-27 10:44 | CA ---
Transthoracic Echo Report Name: Winnie Ibarra Age: 74 Gender: F : 1950 Exam Date: 12/26/2024 13:47 Exam Location: [place] [facility] Ht (in): 62 Wt (lb): 247 Ordering Physician: Sherice Arroyo MD Attending/Referring Phys: Offshoring Manager Zaira Garcia RDCS Procedure CPT: Indications: I65.23 CAROTID STENOSIS, R77.1, I10 I34.0 Cardiac Hx: Technical Quality: Fair Contrast 1: Total Dose (mL): Contrast 2: Total Dose (mL): MEASUREMENTS (Male / Female) Normal Values 2D ECHO LV Diastolic Diameter PLAX 4.4 cm 4.2 - 5.9 / 3.9 - 5.3 cm LV Systolic Diameter PLAX 3.1 cm IVS Diastolic Thickness 1.4 cm 0.6 - 1.0 / 0.6 - 0.9 cm LVPW Diastolic Thickness 1.4 cm 0.6 - 1.0 / 0.6 - 0.9 cm LV Relative Wall Thickness 0.6 RV Internal Dim ED PLAX 3.2 cm LA Systolic Diameter LX 4.0 cm 3.0 - 4.0 / 2.7 - 3.8 cm LV Diastolic Volume MOD 4C 97.8 cm??? LV Systolic Volume MOD 4C 40.7 cm??? LV Ejection Fraction MOD 4C 58.4 % LV Cardiac Index MOD 4C 2102.6 cm???/min???m??? LV Diastolic Length 4C 7.9 cm LV Systolic Length 4C 6.5 cm LV Diastolic Volume MOD 2C 95.4 cm??? LV Systolic Volume MOD 2C 55.6 cm??? LV Ejection Fraction MOD 2C 41.7 % LV Cardiac Index MOD 2C 1465.1 cm???/min???m??? LV Diastolic Length 2C 7.8 cm LV Systolic Length 2C 7.3 cm M-MODE Aortic Root Diameter MM 3.7 cm DOPPLER AV Peak Velocity 145.4 cm/s AV Peak Gradient 8.5 mmHg Mitral E Point Velocity 80.7 cm/s Mitral A Point Velocity 121.5 cm/s Mitral E to A Ratio 0.7 MV Deceleration Time 405.9 ms MV E' Velocity 6.5 cm/s Mitral E to MV E' Ratio 12.4 TR Peak Velocity 272.3 cm/s TR Peak Gradient 29.7 mmHg Right Ventricular Systolic Press 39.7 mmHg FINDINGS Left Ventricle Left ventricular ejection fraction is estimated at 55-60 %. Left ventricular cavity size normal. Moderately increased septal wall thickness. Moderately increased posterior wall thickness. Normal left ventricular wall motion. Right Ventricle Normal right ventricular size. Mild pulmonary hypertension. Right Atrium Normal right atrial size. No right atrial thrombus or mass seen. Left Atrium Mildly increased left atrial diameter. No left atrial thrombus or mass present. Mitral Valve Mitral valve thickened. Mitral annular calcification. Mild to moderate mitral regurgitation. Aortic Valve Trileaflet aortic valve. Aortic valve sclerosis. No aortic stenosis. No aortic regurgitation. Tricuspid Valve Structurally normal tricuspid valve. Mild tricuspid regurgitation. Pulmonic Valve Pulmonic valve not well visualized. No pulmonic regurgitation. Pericardium No pericardial effusion. Aorta Normal size aortic root and proximal ascending aorta. CONCLUSIONS Normal LV systolic function Mild pulmonary hypertension Mild to moderate mitral regurgitation No pericardial effusion Previewed by: Dr. Kelechi Gusman MD (Electronically Signed) Final Date: 27 December 2024 10:44
== END | disposition home or self-care (01) ==
LOC: RADCTMAIN 12-10 13:13 → RADECHMAIN 13:17
PROVIDERS: ATTEND Internal Medicine
DX: I65.23 Occlusion and stenosis of bilateral carotid arteries (principal); R77.1 Abnormality of globulin; I10 Essential (primary) hypertension; I34.0 Nonrheumatic mitral (valve) insufficiency; I27.20 Pulmonary hypertension, unspecified
CPT/HCPCS: 93306; 80048; 85652; 82784 ×4; 82232; 86334; 86335; 70496; 70498; Q9967

== ENCOUNTER → 2025-04-11 | Outpatient (CLI) | payer MEDICARE, OTHER ==
--- NOTE | 2025-04-13 16:39 | PE ---
EXAMINATION TYPE: PET CT fusion skull to thigh DATE OF EXAM: 04/11/2025 CLINICAL INDICATION:Female, 75 years old with history of C50.112 BREAST CANCER; TECHNIQUE: Following the intravenous administration of 11.05 mCi of F-18 FDG, whole body images are performed from the skull base to the Mid thigh. Images are reviewed on the computer in the coronal, axial, and sagittal planes. Reconstructed rotating images are created on independent workstation an d reviewed on the computer. A non-contrast CT is performed in conjunction with the PET scan. Glucos e level 113 mg/dL CT DLP: 1875 mGycm, Automated exposure control for dose reduction was used. COMPARISON: CT 12/26/2024, PET/CT None, MRI: None FINDINGS: Mediastinal SUV mean is 3.2. Hepatic parenchyma SUV mean is 4.0. SKULL BASE AND NECK: No suspicious radiotracer activity. CHEST, MEDIASTINUM, AND HILAR REGION: No suspicious radiotracer activity. Postsurgical changes of the left breast with no suspicious uptake. Surgical bed uptake max SUV 2.3. N o enlarged lymph nodes identified. ABDOMEN AND PELVIS: No suspicious radiotracer activity. MUSCULOSKELETAL STRUCTURES: No suspicious radiotracer activity. OTHER CT: Postsurgical changes in left breast with surgical clips present. No axillary lymph nodes. N o suspicious anterior thoracic lymph nodes. Moderate to severe coronary artery atherosclerosis. Sabra l valve annular cusp patient's. Surgical clips in the gastroesophageal junction. Fat-containing umbil ical hernia. Scattered colonic diverticulosis. IMPRESSION: No suspicious radiotracer activity. [Without evidence for local recurrence or metastatic disease. No lymphadenopathy. [facility], , 04/13/2025 4:37 PM
== END | disposition home or self-care (01) ==
LOC: RADPETMAIN 10:57
PROVIDERS: ATTEND Internal Medicine Hematology & Oncology
DX: C50.112 Malignant neoplasm of central portion of left female breast (principal)
CPT/HCPCS: 78815; A9552

== ENCOUNTER 2025-04-17 06:01 | Day surgery (SDC) | payer MEDICARE, OTHER ==
[2025-04-11 14:53] VITALS: BMI 45.7
[2025-04-17] MEDS: LACTATED RINGERS 1,000 ML IV SCH (07:03)
[2025-04-17] MEDS: IV FLUID CONTINUATION 1,000 ML IV ONE (07:05)
[2025-04-17] MEDS ORDERED: PROPOFOL 10 MG/ML 20 ML VIAL IV ONE (07:12)
[2025-04-17 07:15] VITALS: TEMP 97.8
--- NOTE | 2025-04-17 08:21 | OP ---
OPERATIVE REPORT DATE OF SERVICE : PROCEDURE PERFORMED: Bone marrow biopsy with general and local sedation. DESCRIPTION OF PROCEDURE: After being placed in the left lateral decubitus position, general anesthesia was administered. The right superior iliac spine followed by iliac crest was palpated. This area was sterilized with 3 swabs of Betadine and 3 swabs of alcohol, followed by placement of sterile drape. 10 mL of 1% lidocaine was then applied to the periosteum. 0.3 cm incision was then made into the subcutaneous tissue. A 7-inch Jamshidi needle was then advanced through the periosteum to the bone marrow. Two initial attempts did not reveal aspirate. Third attempt did obtain 20 mL of aspirate. Additional 2 attempts for core biopsy were unsuccessful. Winnie tolerated the procedure well with less than 1 mL of blood loss. She returned to the postoperative area in stable condition. We will follow up on results of bone marrow biopsy in clinic. PREOPERATIVE DIAGNOSIS: Monoclonal gammopathy. POSTOPERATIVE DIAGNOSIS: Monoclonal gammopathy. MMODL / IJN: [id number] /
[2025-04-17 08:34] VITALS: BP 132/69; PULSE 68; RESP 18
[2025-04-17 08:54] LABS: Basophils # (A) 0.02 10*3/uL (0.00-0.10); Basophils % (A) 0.3 %; Eosinophils # (A) 0.11 10*3/uL (0.04-0.35); Eosinophils % (A) 1.5 %; HCT 38.1 % (37.2-46.3); HGB 13.1 g/dL (12.0-15.0); Lymphocytes # (A) 1.52 10*3/uL (0.90-5.00); Lymphocytes % (A) 20.1 %; MCH 34.7 pg (27.0-32.0); MCHC 34.4 g/dL (32.0-37.0); MCV 101.1 fL (80.0-97.0); Monocytes # (A) 0.59 10*3/uL (0.20-1.00); Monocytes % (A) 7.8 %; Neutrophils # (A) 5.30 10*3/uL (1.80-7.70); Neutrophils % (A) 69.9 %; Platelet Count 215 10*3/uL (140-440); RBC 3.77 10*6/uL (4.10-5.20); RDW 13.2 % (11.5-14.5); WBC 7.57 10*3/uL (4.50-10.00)
== END 2025-04-17 09:10 | disposition home or self-care (01) ==
LOC: OR 06:01
PROVIDERS: ATTEND Internal Medicine
DX: D47.2 Monoclonal gammopathy (principal); I10 Essential (primary) hypertension; E78.5 Hyperlipidemia, unspecified; I48.0 Paroxysmal atrial fibrillation; J43.8 Other emphysema; Z87.891 Personal history of nicotine dependence; Z79.899 Other long term (current) drug therapy; Z85.3 Personal history of malignant neoplasm of breast
CPT/HCPCS: 38222; 85025; 85045